=== PATIENT | male | born 1965 | race African-American/Black ===

== ENCOUNTER 2018-09-08 05:30 | Inpatient (IN) | payer MEDICARE ==
[2018-09-08 06:00] LABS: #Eosinphils 0.4 thou/uL (0.0-0.7); #Lymphocytes 2.5 thou/uL (1.20-3.40); #Monocytes 0.7 thou/uL (0.11-0.59); #Neutrophils 2.4 thou/uL (1.40-6.50); %Basophils 0.5 % (0.0-1.0); %Monocytes 11.9 % (0.0-10.0); %Neutrophils 39.6 % (42.0-75.0); Hemoglobin 16.2 g/dL (14.0-18.0); Mean Corpuscular Hemoglobin 26.8 pg (27.0-31.0); Mean Corpuscular Volume 86.4 fL (78.0-98.0); Mean Platelet Volume 7.9 fL (7.4-10.4); Platelet Count 271 thou/uL (130-400); RBC Distribution Width 12.4 % (11.5-14.5); Red Blood Cell (RBC) Count 6.04 mill/uL (4.70-6.10)
[2018-09-08 06:06] LABS: PTT 27.8 SEC (22.9-36.1); Prothrombin Time 13.7 SEC (12.0-14.7)
[2018-09-08 06:19] LABS: CKMB 3.5 ng/mL (0-6.6)
[2018-09-08 06:25] LABS: ALT (SGPT) 26 U/L (8-55); AST (SGOT) 23 U/L (5-34); Albumin 4.4 g/dL (3.5-5.0); Alkaline Phosphatase 79 U/L (40-150); Anion Gap 15 mmol/L (10-20); BUN (Urea Nitrogen) 11 mg/dL (8.9-20.6); Bilirubin, Total 0.6 mg/dL (0.2-1.2); Calc. Creatinine Clearance 0 mL/min (70-130); Calcium 9.7 mg/dL (7.8-10.44); Carbon Dioxide 29 mmol/L (22-29); Chloride 98 mmol/L (98-107); Estimated GFR-MDRD 84; Globulin 4.4 g/dL (2.4-3.5); Glucose 73 mg/dL (70-105); Potassium 3.5 mmol/L (3.5-5.1); Protein, Total 8.8 g/dL (6.0-8.3); Sodium 138 mmol/L (136-145)
--- NOTE | 2018-09-08 08:27 | CT ---
PRELIMINARY REPORT/[facility]/EMERGENTY AFTER-HOURS PROCEDURE CT Head Without Intravenous Contrast EXAM DATE/TIME: 09/08/2018 5:59 AM CLINICAL HISTORY: 52 years old, male; Signs and symptoms; Weakness, extremity; Bilateral; Patient HX: M52 with HX of he rniated discs and scoliosis presents with rue and rle weakness onset yesterday at 04:00 associated wi th r sided head pain. PT denies any HX of TIA or CVA. PT denies any cp, vision changes, SOB, slurred speech. Pt's denies any AMS for PT. TECHNIQUE: Axial computed tomography images of the head/brain without intravenous contrast. COMPARISON: No relevant prior studies available. FINDINGS: Brain: There are chronic appearing bilateral basal ganglia lacunar infarcts. No acute hemorrhage. Gra y white differentiation is intact. No evidence of acute territorial infarct. No evidence of extra-axi al fluid collection. No evidence of mass. No evidence of mass effect or midline shift. No acute abnormality evident. Ventricles: No ventriculomegaly. Bones/joints: No acute fracture. Sinuses: Left frontal sinus osteoma. No acute sinusitis. Mastoid air cells: No significant mastoid effusion. Soft tissues: Unremarkable as visualized. IMPRESSION: No evidence of acute intracranial finding. Thank you for allowing us to participate in the care of your patient. Dictated and Authenticated by: Rekha Turner MD 09/08/2018 6:42 AM Central Time ([place] & [place]) FINAL REPORT CT BRAIN WITHOUT CONTRAST: I agree with the preliminary report given by Dr. Rekha Turner of [facility]. POS: [facility]
--- NOTE | 2018-09-08 08:49 | RAD ---
PORTABLE CHEST 1 VIEW: DATE: 09/08/2018. TIME: 4:58 a.m. HISTORY: Right upper and lower extremity weakness. FINDINGS: Comparison is made with the exam of 09/30/2014. There has been interval placement of a left-sided pacer device wit unipolar lead in the right ventric le. The heart is enlarged. The lungs are expanded without lobar consolidation, pneumothoraces, tiffanie k pulmonary edema, or pleural effusions. IMPRESSION: No acute process. POS: [facility]
[2018-09-08 09:59] LABS: Medtox Reader # READER 1; Methamphetamine Detected (NotDetected); THC/Cannabinoid Screen Detected (NotDetected)
[2018-09-08 10:00] LABS: Amphetamine Detected (NotDetected); Barbiturates Screen Not Detected (NotDetected); Benzodiazepine Screen Not Detected (NotDetected); Cocaine Metabolite Screen Not Detected (NotDetected); Medtox Control Line Valid? VALID (VALID); Methadone Not Detected (NotDetected); Opiate Screen Not Detected (NotDetected); Oxycodone Screen Not Detected (NotDetected); Phencyclidine (PCP) Not Detected (NotDetected); Tricyclic Screen Not Detected (NotDetected)
--- NOTE | 2018-09-08 10:16 | CT ---
CTA CHEST WITH IV CONTRAST AND 3D POSTPROCESSING CTA ABDOMEN WITH IV CONTRAST AND 3D POSTPROCESSING: Date: 09/08/18 HISTORY: Chest pain, right-sided weakness. FINDINGS: There is good opacification of the thoracoabdominal aorta without aneurysm or dissection. There is go od flow in the celiac axis, SMA, CINDY, and renal arteries. There is focal stenosis in the proximal noe iac axis. No pleural or pericardial effusions are seen. Bilateral gynecomastia is present. The main pulmonary a rteries are well opacified without filling defects to suggest central pulmonary embolism. No lung mas ses are noted. No free air or free fluid is seen in the abdomen. A normal appearing appendix is present. Evaluation of solid organs due to imaging during the arterial phase of contrast administration. No calcified gal lstones are seen. There is scoliosis of the thoracolumbar spine. IMPRESSION: No evidence of aortic dissection. POS: [facility]
[2018-09-08 12:09] LABS: Troponin I 0.127 ng/mL (< 0.028)
[2018-09-08] MEDS ORDERED: hydrALAZINE 20 MG/ML VIAL SLOW IVP PRN (12:19)
[2018-09-08] MEDS ORDERED: Lorazepam 1 MG TAB PO PRN ×2 (12:19→18:28)
[2018-09-08] MEDS ORDERED: cloNIDine 0.1 MG TAB PO PRN (12:19)
[2018-09-08] MEDS ORDERED: Acetaminophen 325 MG TAB PO PRN (12:35)
[2018-09-08] MEDS ORDERED: Ondansetron PF 4 MG/2 ML Vial IVP PRN (12:35)
[2018-09-08] MEDS ORDERED: Ondansetron ODT 4 MG TAB PO PRN (12:35)
[2018-09-08] MEDS ORDERED: Nitroglycerin 2% Ointment 1 INCH/1 GM Packet TOP PRN (12:38)
[2018-09-08] MEDS ORDERED: ISOVUE-370 76%-LOCM 1 ML ONE (13:28)
[2018-09-08] MEDS ORDERED: Insulin Regular 300 UNITS/3 ML VIAL SC PRN (13:53)
[2018-09-08] MEDS ORDERED: Dextrose 5% in Water 1,000 ML IV PRN (13:53)
[2018-09-08] MEDS ORDERED: Dextrose 50% Abboject 50 ML SYRINGE SLOW IVP PRN (13:53)
[2018-09-08 14:56] LABS: Troponin I 0.117 ng/mL (< 0.028)
--- NOTE | 2018-09-08 17:52 | CON ---
DATE OF CONSULTATION: 09/08/2018 REASON FOR CONSULTATION: Heart failure. PRIMARY PLATFORM SUPERVISOR: Allison Ruggiero M.D. HISTORY OF PRESENT ILLNESS: Mr. Best is a very pleasant 52-year-old -[place] gentleman who comes to the hospital for weakness. He has developed the right upper and right lower extremity weak ness since yesterday at 4:00 a.m., so he decided to come in as he was concerned that he was having a stroke or something worse might be going on. He has a history of an ischemic cardiomyopathy. He was last seen here in this facility by Dr. Ruggiero in 2013. At that time, his LV function was about 30-3 5%. He had a heart catheterization at that time that showed an occluded left circumflex, severely di seased distal LAD and severely diseased distal right coronary artery pretty much the whole vessel. Kayla christianson was treated medically at that time, he was placed on medications and discharged home for followup. He never followed up. He tells me that since he left the hospital at that time in 2013, he has been in and out of other hospitals around [place]. He actually has a [employer] single chamber AICD placed u when he was in [place] and he tells me that since he left in 2014, he has had 5 stents placed. He d oes not know how good or bad his heart function is, but he thinks that he has been told that it has b een a little bit better in the past. He thinks it has been told that it was about 40% at one point. PAST MEDICAL HISTORY: 1. History of ischemic cardiomyopathy. 2. Dilated cardiomyopathy with severely reduced EF in the past. 3. Noncompliance. 4. Substance abuse. 5. Type 2 diabetes. 6. Hyperlipidemia. 7. Hypertension. 8. Obesity. 9. Coronary artery disease as above. PAST SURGICAL HISTORY: 1. AICD placement as above, single chamber. 2. Heart catheterizations in the past, apparently has had stents five times. PSYCHIATRIC HISTORY: Anxiety, depression, bipolar disorder. SOCIAL HISTORY: Uses tobacco about a pack a day. He drinks socially and he uses methamphetamines an d marijuana. OUTPATIENT MEDICATIONS: 1. Atorvastatin 40 mg a day. 2. Furosemide 20 mg twice a day. 3. Lisinopril 2.5 mg daily. 4. Glyburide 5 mg a day. 5. Spironolactone 25 mg a day. 6. Metolazone 5 mg a day. ALLERGIES: No known drug allergies. REVIEW OF SYSTEMS: A 12-point review of systems was done and is all negative unless stated in the hi story of present illness. PHYSICAL EXAMINATION: VITAL SIGNS: Temperature 97.5, pulse 86, respiration rate 16, satting 96% on room air, blood pressur e 129/81. GENERAL: Awake, alert, oriented x3, in no distress. HEENT: Normocephalic, atraumatic. NECK: Supple. LUNGS: Clear. CARDIOVASCULAR: S1, S2, no S3, S4, no murmurs. ABDOMEN: Soft, positive bowel sounds. EXTREMITIES: No edema. SKIN: Warm and dry. NEUROLOGIC: Slightly weaker right side. He is able to walk without issues. LABORATORY WORK: Reviewed. CBC is unremarkable. Coags were normal. Chemistries were unremarkable. His albumin was 4.4. His troponin is 0.15, 0.12 and 0.11. Ammonia was 40. Toxicology was positiv e for amphetamines, methamphetamines and cannabis, which he admits even before UDS was done. ASSESSMENT AND PLAN: 1. Right-sided weakness. Concern for an embolic source. CT of the brain was unremarkable for any b leed. CT dissection showed no evidence of dissections. It could be a possibility that he still has a dilated LV and developed thrombus and this was thrown to his brain. We will await MRI of the brain to see if this is actually a stroke or not and if it is, he would be a candidate for full anticoagul ation given his dilated LV. Issue would be his compliance. 2. Substance abuse: Counseled on cessation. 3. Coronary artery disease: No evidence of an acute coronary syndrome at that time. His troponins are in the intermediate range, which is expected when somebody who has got a dilated cardiomyopathy. Thank you for letting us to participate in the care of your patient. Dr. Ruggiero, his primary cardiol ogist, will follow up in the morning.
--- NOTE | 2018-09-08 18:01 | HP ---
DATE OF ADMISSION: 09/08/2018 PRIMARY CARE PHYSICIAN: Dr. Snow in [place]. CHIEF COMPLAINT: Stroke-like symptoms. HISTORY OF PRESENT ILLNESS: Patient is a 52-year-old male with coronary artery disease, chronic syst olic heart failure secondary to ischemic cardiomyopathy, diabetes mellitus type 2, and methamphetamin e abuse presented to the hospital with above symptoms. Around 4:00 a.m. yesterday, patient woke up with right-sided numbness and weakness along with some he adache. The weakness and numbness was in the right upper and lower extremity. His headache was on t he right side, more or less constant, without any aggravating or relieving factor. No double vision, blurring of vision, facial asymmetry, swallowing difficulty, slurring of speech, photophobia, phonop hobia or seizures reported. No chest pain, shortness of breath, palpitations, nausea or vomiting rep orted. Patient presented today with above symptoms that has been going on for more than 24 hours. In the em ergency room, initial vital signs showed temperature 97.3, respirations 22, pulse 102, blood pressure 135/96 with O2 saturation 97% on room air. His CT aortic dissection protocol was negative. CT scan of the brain was negative. EKG showed sinus rhythm with nonspecific ST-T wave changes. He received aspirin in the emergency room. PAST MEDICAL HISTORY: 1. Chronic systolic heart failure, ejection fraction 20% in the past secondary to ischemic cardiomyo gisela. 2. Diabetes mellitus type 2. 3. Coronary artery disease. Patient is followed by Dr. Knight in [place]. 4. Tobacco dependence. 5. Hyperlipidemia. 6. History of myocardial infarction. 7. Depression. 8. Gastroesophageal reflux disease. 9. Anxiety. PAST SURGICAL HISTORY: Cardiac catheterization with stent placement. SOCIAL HISTORY: Patient currently lives at home. He drinks socially every week. He smokes 1 pack a day. FAMILY HISTORY: Positive for heart disease and diabetes mellitus type 2. ALLERGIES: No known drug allergies. CURRENT HOME MEDICATIONS: Metolazone 5 mg daily, Lasix 1-3 tablets of 20 mg twice a day, aspirin 81 mg daily, Lipitor 40 mg daily, Aldactone 25 mg daily, glyburide 5 mg daily, [place] as needed, lisinopr il 10 mg b.i.d., omeprazole 20 mg daily, sublingual nitroglycerin as needed. REVIEW OF SYSTEMS: The following complete review of systems was negative, unless otherwise mentioned in the HPI or below: Constitutional: Weight loss or gain, ability to conduct usual activities. Sk in: Rash, itching. Eyes: Double vision, pain. ENT/Mouth: Nose bleeding, neck stiffness, pain, te nderness. Cardiovascular: Palpitations, dyspnea on exertion, orthopnea. Respiratory: Shortness of breath, wheezing, cough, hemoptysis, fever or night sweats. Gastrointestinal: Poor appetite, abdom inal pain, heartburn, nausea, vomiting, constipation, or diarrhea. Genitourinary: Urgency, frequenc y, dysuria, nocturia. Musculoskeletal: Pain, swelling. Neurologic/Psychiatric: Anxiety, depressio n. Allergy/Immunologic: Skin rash, bleeding tendency. PHYSICAL EXAMINATION: VITAL SIGNS: As discussed above. GENERAL: A 52-year-old male in no apparent distress. HEENT: Atraumatic, normocephalic. Sclerae are anicteric. Moist mucous membrane, no oral lesion. NECK: Supple, no JVD appreciated. No carotid bruit. LUNGS: Clear to auscultation bilaterally, no wheezing, rales or rhonchi. HEART: S1, S2 present. Regular rate and rhythm. No murmur, rubs, or gallops appreciated. ABDOMEN: Soft, nontender, bowel sounds present. EXTREMITIES: No edema or calf tenderness. NEUROLOGIC: Cranial nerves II-XII were normal on examination. Power was 5/5 on the left and 3-4/5 o n the right. Sensation to touch was also diminished on the right. PSYCHIATRY: Alert, awake, oriented x3. SKIN: Warm and dry. LYMPH NODES: No palpable lymph nodes in the neck. PERIPHERAL VASCULAR: Radial pulses palpable bilaterally. MUSCULOSKELETAL: No joint swelling or tenderness. LABORATORY FINDINGS: Urine drug screen positive for amphetamine, methamphetamine, and cannabinoid. Troponin maximum of 0.127. Ammonia was normal. Magnesium 1.7, potassium 3.5 with chloride of 98. C BC showed WBC 6.0 with hemoglobin 16.2. PT, INR, PTT normal range. EKG by my review as discussed above. CT scan of the brain by my review as discussed above. Chest x- ray by my review was negative for infiltrate. IMPRESSION AND PLAN: 1. Acute cerebrovascular accident causing right-sided weakness and sensory deficits. 2. Chronic systolic heart failure, ejection fraction 20% range. 3. Elevated troponins, probably secondary to demand ischemia from drug abuse. 4. Polysubstance abuse. The patient is positive for methamphetamine as well as cannabinoid. 5. Chronic kidney disease stage 2. 6. Obesity with a BMI 35.1. 7. Anxiety, depression without any suicidal ideation. 8. Coronary artery disease. 9. Ischemic cardiomyopathy. 10. Diabetes mellitus type 2. 11. Hyperlipidemia. PLAN: Patient will be monitored in the stroke unit. We will continue aspirin. We will get stroke w orkup including MRI of the brain and echocardiogram. Neurology and Cardiology will be consulted. We will discuss with the Neurology if aspirin needs to be changed to either Plavix or Aggrenox. Lifest yle modification was emphasized. Plan of care was discussed with the patient in detail, he stated understanding.
[2018-09-08] MEDS: Insulin Regular 300 UNITS/3 ML VIAL SC PRN (18:42)
[2018-09-08] MEDS ORDERED: Atorvastatin Calcium 40 MG TAB PO SCH (21:00)
[2018-09-08] MEDS: Famotidine 20 MG TAB PO SCH (21:07)
[2018-09-08] MEDS: Lisinopril 10 MG TAB PO SCH (21:07)
[2018-09-09 05:41] LABS: #Basophils 0.1 thou/uL (0.0-0.2); #Eosinphils 0.4 thou/uL (0.0-0.7); #Lymphocytes 2.3 thou/uL (1.20-3.40); #Monocytes 0.8 thou/uL (0.11-0.59); #Neutrophils 2.4 thou/uL (1.40-6.50); %Basophils 0.9 % (0.0-1.0); %Eosinophils 6.3 % (0.0-10.0); %Lymphocytes 39.6 % (21.0-51.0); %Monocytes 12.7 % (0.0-10.0); %Neutrophils 40.5 % (42.0-75.0); Hemoglobin 15.7 g/dL (14.0-18.0); Mean Corpuscular HGB CONC 32.7 g/dL (32.0-36.0); Mean Corpuscular Hemoglobin 27.9 pg (27.0-31.0); Mean Corpuscular Volume 85.3 fL (78.0-98.0); Mean Platelet Volume 7.4 fL (7.4-10.4); Platelet Count 258 thou/uL (130-400); RBC Distribution Width 12.3 % (11.5-14.5); Red Blood Cell (RBC) Count 5.64 mill/uL (4.70-6.10); White Blood Cell (WBC) Count 5.9 thou/uL (4.8-10.8)
[2018-09-09 05:50] LABS: ALT (SGPT) 21 U/L (8-55); AST (SGOT) 17 U/L (5-34); Albumin 3.8 g/dL (3.5-5.0); Alkaline Phosphatase 72 U/L (40-150); Anion Gap 13 mmol/L (10-20); BUN (Urea Nitrogen) 12 mg/dL (8.9-20.6); Bilirubin, Total 0.3 mg/dL (0.2-1.2); Calc. Creatinine Clearance 141 mL/min (70-130); Calcium 9.6 mg/dL (7.8-10.44); Carbon Dioxide 30 mmol/L (22-29); Cardiac Risk 3.5 (Less than 4.5); Chloride 96 mmol/L (98-107); Cholesterol 139 mg/dl (< 200 Desired); Estimated GFR-MDRD 83; Globulin 3.9 g/dL (2.4-3.5); Glucose 124 mg/dL (70-105); HDL Cholesterol 40 mg/dL (>60 Neg Risk); LDL Cholesterol, Calculated 82 mg/dL; Magnesium 1.5 mg/dL (1.6-2.6); Potassium 3.5 mmol/L (3.5-5.1); Protein, Total 7.7 g/dL (6.0-8.3); Sodium 135 mmol/L (136-145); Triglycerides 86 mg/dL (Less than 150)
[2018-09-09] MEDS ORDERED: Aspirin 325 mg Enteric Coated Tablet PO SCH (09:00)
[2018-09-09] MEDS ORDERED: Enoxaparin Sodium 40 MG/0.4 ML SYRINGE SC SCH (09:00)
[2018-09-09] MEDS ORDERED: Magnesium 2 GM/50 ML 2 GM in Premix Bag 1 BAG IVPB SCH (09:30)
[2018-09-09] MEDS: Atorvastatin Calcium 40 MG TAB PO SCH (10:17)
[2018-09-09] MEDS: Cyanocobalamin (Vitamin B-12) 1,000 MCG TAB PO SCH (10:18)
[2018-09-09] MEDS: Famotidine 20 MG TAB PO SCH ×2 (10:20→21:19)
[2018-09-09] MEDS: Folic Acid 1 MG TAB PO SCH (10:21)
[2018-09-09] MEDS: Lisinopril 10 MG TAB PO SCH ×2 (10:21→21:22)
[2018-09-09] MEDS: Multivit, Therapeutic 1 TAB PO SCH (10:22)
[2018-09-09] MEDS: Spironolactone 25 MG TAB PO SCH (10:22)
[2018-09-09] MEDS: Lorazepam 1 MG TAB PO PRN ×2 (10:24→10:41)
[2018-09-09 11:38] VITALS: BMI 34.9
[2018-09-09] MEDS ORDERED: ISOVUE-370 76%-LOCM 1 ML ONE (13:45)
--- NOTE | 2018-09-09 15:39 | MRI ---
BRAIN MRI WITHOUT CONTRAST: History: Stroke. CVA. Comparison: None. FINDINGS: Calvarium has a normal T1 marrow signal intensity. Midline brain parenchymal structures are unremarka ble. No hemorrhage on the axial gradient echo sequence. Central arterial flow voids are maintained. Absent restricted diffusion. Adequate aeration of the sinuses and mastoid air cells. There is no parenchymal mass, mass effect, or midline shift. Brain volume is age appropriate. There a re T2 and FLAIR white matter hyperintensities with associated restricted diffusion involving the left raymond radiata, left occipital cortex and left temporal cortex including the subcortical white matte r. Additional cortical infarcts are noted along the left frontal lobe. Embolic phenomenon is favored. IMPRESSION: 1. Small white matter as well as cortical/subcortical white matter infarcts. The overall distribution favors an embolic phenomenon. POS: [facility]
[2018-09-09] MEDS ORDERED: Carvedilol 6.25 MG TAB PO SCH ×2 (17:53→18:30)
[2018-09-09] MEDS ORDERED: Potassium Chloride 20 MEQ TAB PO SCH (18:00)
--- NOTE | 2018-09-09 18:43 | PDOC.PN ---
- Subjective Encounter Start Date: 09/09/18 Encounter Start Time: 09:00 Patient seen and examined for Acute CVA. No new focal deficits. Rt sided weakness improved. No new complaints. No overnight events - Objective Resuscitation Status: Resuscitation Status FULL:Full Resuscitation MAR Reviewed: Yes Vital Signs & Weight: Vital Signs (12 hours) Temp Pulse Pulse Pulse Resp BP BP 09/09/18 16:00 102/69 09/09/18 15:50 98.4 F 106 H 16 09/09/18 13:35 94 101 H 110/67 09/09/18 12:00 118/77 09/09/18 11:56 98.1 F 96 20 09/09/18 10:21 117/71 09/09/18 10:20 09/09/18 07:46 98.0 F 98 20 BP BP Pulse Ox 09/09/18 16:00 09/09/18 15:50 102/69 95 09/09/18 13:35 115/74 09/09/18 12:00 09/09/18 11:56 118/77 96 09/09/18 10:21 09/09/18 10:20 97 09/09/18 07:46 115/83 97 Weight Admit Weight 280 lb Weight 279 lb I&O: 09/08/18 09/09/18 09/10/18 06:59 06:59 06:59 Intake Total 1320 Output Total 2225 450 Balance -905 -450 Result Diagrams: 09/09/18 05:22 09/09/18 05:22 Additional Labs: Accuchecks 09/09/18 09/09/18 09/09/18 16:39 10:49 05:40 POC Glucose 126 H 182 H 135 H 09/08/18 19:59 POC Glucose 152 H Radiology Reviewed by me: Yes (CT brain - neg) EKG Reviewed by me: Yes (Tele SR) Phys Exam - Physical Examination Constitutional: NAD Neck: no JVD Respiratory: no wheezing, no rales, no rhonchi, clear to auscultation bilateral Cardiovascular: RRR, no rub no heaves/pulsations Gastrointestinal: soft, non-tender, no distention, positive bowel sounds Musculoskeletal: no edema, pulses present Neurological: non-focal, normal sensation, moves all 4 limbs Psychiatric: normal affect, A&O x 3 Skin: no rash Dx/Plan - Plan DVT proph w/lovenox, DVT proph w/SCDs 1. Acute cerebrovascular accident causing right-sided weakness and sensory deficits. ?embolic 2. Chronic systolic heart failure, ejection fraction 20% range. 3. Elevated troponins, probably secondary to demand ischemia from drug abuse. 4. Polysubstance abuse. The patient is positive for methamphetamine as well as cannabinoid. 5. Chronic kidney disease stage 2. 6. Obesity with a BMI 35.1. 7. Anxiety, depression without any suicidal ideation. 8. Coronary artery disease. 9. Ischemic cardiomyopathy. 10. Diabetes mellitus type 2. 11. Hyperlipidemia. 12. Chronic alcoholism. 13. Hypomagnessemia PLAN: Cont ASA/Statins Await Echo/MRI Cardio following Await Neuro input Cont ACEI/Aldactone Replace Mag Cont current meds as below Review of Systems - Review of Systems Respiratory: negative: Cough, Dry, Shortness of Breath, Hemoptysis, SOB with Excertion, Pleuritic Pain, Sputum, Wheezing Cardiovascular: negative: chest pain, palpitations, orthopnea, paroxysmal nocturnal dyspnea, edema, light headedness, other Gastrointestinal: negative: Nausea, Vomiting, Abdominal Pain, Diarrhea, Constipation, Melena, Hematochezia, Other - Medications/Allergies Allergies/Adverse Reactions: Allergies Allergy/AdvReac Type Severity Reaction Status Date / Time No Known Allergies Allergy Verified 09/08/18 15:17 Medications: Current Medications Acetaminophen (Tylenol) 650 mg PO Q4H PRN PRN Reason: Headache/Fever/Mild Pain (1-3) Hydrocodone Bitart/Acetaminophen (Epworth 10/325) 1 tab PO Q6HR PRN PRN Reason: Severe Pain (7-10) Apixaban (Eliquis) 5 mg PO BID [facility] Aspirin (Ecotrin) 81 mg PO DAILY [facility] Atorvastatin Calcium (Lipitor) 40 mg PO DAILY [facility] Last Admin: 09/09/18 10:17 Dose: 40 mg [facility] Carvedilol (Coreg) 6.25 mg PO 1830 [facility] Stop: 09/09/18 19:30 Clonidine (Catapres) 0.1 mg PO Q4H PRN PRN Reason: Systolic BP > 180 Cyanocobalamin (Vitamin B-12) 1,000 mcg PO DAILY [facility] Last Admin: 09/09/18 10:18 Dose: 1,000 mcg Dextrose/Water (Dextrose 50%) 25 gm SLOW IVP PRN PRN PRN Reason: Hypoglycemia Famotidine (Pepcid) 20 mg PO BID [facility] Last Admin: 09/09/18 10:20 Dose: 20 mg Folic Acid (Folvite) 1 mg PO DAILY [facility] Last Admin: 09/09/18 10:21 Dose: 1 mg Glucagon (Glucagon) 1 mg IM PRN PRN PRN Reason: Hypoglycemia Hydralazine HCl (Apresoline) 10 mg SLOW IVP Q4H PRN PRN Reason: SBP Greater Than 180 Dextrose/Water (D5w) 1,000 mls @ 0 mls/hr IV .Q0M PRN PRN Reason: Hypoglycemia Insulin Human Regular (Humulin R) 0 units SC .MILD SLIDING SCALE PRN PRN Reason: Mild Correctional Scale Last Admin: 09/08/18 18:42 Dose: 2 unit Insulin Human Regular (Humulin R) 0 units SC .BEDTIME SLIDING SC PRN PRN Reason: Bedtime Correctional Scale Lisinopril (Zestril) 10 mg PO BID [facility] Last Admin: 09/09/18 10:21 Dose: 10 mg Lorazepam (Ativan) 1 mg PO Q4H PRN PRN Reason: ASE >=9 Last Admin: 09/09/18 10:41 Dose: 1 mg Multivitamins (Theragran) 1 tab PO DAILY [facility] Last Admin: 09/09/18 10:22 Dose: 1 tab Nitroglycerin (Nitro-Bid 2% Ointment) 0.5 inch TOP Q8H PRN PRN Reason: SBP Greater Than 180 Ondansetron HCl (Zofran Odt) 4 mg PO Q6H PRN PRN Reason: Nausea/Vomiting Ondansetron HCl (Zofran) 4 mg IVP Q6H PRN PRN Reason: Nausea/Vomiting Potassium Chloride (K-Dur) 40 meq PO NOW [facility] Stop: 09/09/18 20:00 Sodium Chloride (Flush - Normal Saline) 10 ml IVF PRN PRN PRN Reason: Saline Flush Spironolactone (Aldactone) 25 mg PO DAILY [facility] Last Admin: 09/09/18 10:22 Dose: 25 mg Thiamine HCl (Thiamine) 100 mg PO DAILY [facility] Last Admin: 09/09/18 10:18 Dose: 100 mg
--- NOTE | 2018-09-09 18:53 | PDOC.EVN ---
Event Note - Event Note Event Note: Will start Eliquis per Cardio and Neuro recommendation. Reduce ASA to 81 mg. Risk not limited to life threatening complications including discussed with patient - he stated understanding.
--- NOTE | 2018-09-09 20:58 | PRG ---
DATE OF SERVICE: 09/09/2018 SUBJECTIVE: Mr. Best is doing better. He has no chest pain or pressure. He is moving his arms an d legs well. PHYSICAL EXAMINATION: VITAL SIGNS: Blood pressure is 102/69, pulse was 100, sinus. LUNGS: Clear. CARDIAC: Normal S1, normal S2. ABDOMEN: Soft, nontender. EXTREMITIES: No edema. IMAGING DATA: Echocardiogram revealed ejection fraction is 15-20%. Technically difficult study. Th e images are suboptimal from the apex. The MRI is compatible with embolic strokes in multiple locations. ASSESSMENT: 1. Severely dilated left ventricle with ejection fraction 15-20%. 2. Coronary artery disease. 3. Single chamber defibrillator. 4. Very high probability this is embolic strokes. 5. Unfortunately abusing amphetamines apparently methamphetamine. 5. Continues to smoke. PLAN: Discussed with this gentleman. Unfortunately, if he continues to medication continues to use methamphetamines risk of will be very high with this degree of heart disease. Really no great option with stroke prevention. He certainly is at higher risk of bleeding with using methamphetamines in terms of hypertension, but also high risk of recurrent embolic strokes without i t. He critically not use methamphetamines. I think all things considered, it is reasonable to reduce the aspirin to 81 mg a day and use Eliquis. Also, we will restart the carvedilol, it is not clear to me who has been seeing from a cardiac standpoint. I will be glad to see him in the office i f he prefers. He is on lisinopril. We will restart Coreg. He says he stopped at some point in the past. He knows he needs to not smoke. His defibrillator was placed by Dr. Ramos at [facility]. The patient wishes to be seen by us and will be glad to do so. It is unclear at this point which d irection he will go; however, he continues to use amphetamine prognosis is grim.
[2018-09-09] MEDS: HYDROcodone/Acetaminophen 10/325 mg Tablet PO PRN (21:19)
[2018-09-09] MEDS: Apixaban 5 MG TAB PO SCH (21:19)
--- NOTE | 2018-09-09 22:22 | CT ---
CTA CAROTID AND INTRACRANIAL CTA 09/09/18 HISTORY: Patient with right sided stroke, weakness involving the right upper and lower extremity. Contrast enhanced CTA of the carotid artery and intracranial CTA performed. The right and left common carotid arteries are unremarkable without evidence of significant stenosis. The right and left subclavian arteries are patent. The right brachiocephalic artery is patent. The right and left common carotid arteries demonstrate no significant stenosis. The right and left in ternal carotid arteries are patent. The SHERI and MCA vessels bilaterally are patent and have symmetric flow. The right and left vertebral arteries are patent. Good flow is seen in the right and left posterior cerebral arteries from the anterior circulation. The right and left posterior cerebral arteries are patent. IMPRESSION: Unremarkable carotid and intracranial CTA. Areas of acute stroke seen on MRI at this time are not vis ible by CT. POS: [facility]
--- NOTE | 2018-09-10 03:37 | CON ---
DATE OF CONSULTATION: 09/09/2018 CHIEF COMPLAINT: Right-sided weakness. HISTORY OF PRESENT ILLNESS: The patient is a 52-year-old -[place] man, who has longstanding cardiac issues, diabetes and methamphetamine abuse. He reports to me that he felt weak on the right side when he woke up on 09/07/2018 and he came to the emergency room on 09/08/2018 for admission and he felt that his right side was quite weak and he also felt numbness in both hands and feet. He had no difficulty with speaking. He did have some headache, no blurred vision, no seizures, no speech disturbance or dysarthria. No dizziness. 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 He would like to go home if possible. The patient has been on aspirin 81 mg, but he feels he has missed some doses on and off. PAST MEDICAL HISTORY: The patient has chronic heart failure with ejection fraction of 20% in the past due to ischemic cardiomyopathy, coronary artery disease with about 5 stents were placed between 2015 to 2016, hyperlipidemia, history of myocardial infarction, depression, gastroesophageal reflux disease on and off, and anxiety. PAST SURGICAL HISTORY: He had 5 cardiac catheterizations with stent placements between 2015 to 2016, he also had an AICD device placement in 2014. SOCIAL HISTORY: He lives at home. He drinks once a week, occasionally. He smokes 1 pack per day. He has used drugs in the past he states including methamphetamine and marijuana. He is disabled due to scoliosis, chronic pain, disk disease and heart problems. FAMILY HISTORY: The patient has 3 brothers and 3 sisters. One sister has lupus , she is 46. One sister of cancer at age 36, she had cervical cancer. Brother of an myocardial infarction. His father at 62 following cancer in 2007. Mother at 58 in 2006 from an [place]. Since his parents and sisters , he has had depression. ALLERGIES: No known drug allergies. MEDICATIONS AT HOME: He takes metolazone; Lasix; aspirin 81 mg per day, but misses some doses; Lipitor 40 mg per day; Aldactone 25 mg per day; glyburide 5 mg per day; Jeff; lisinopril; and omeprazole. REVIEW OF SYSTEMS: Pulmonary: Negative for any shortness of breath or cough. Cardiac: Negative for any chest pain. Gastrointestinal: No history of any diarrhea or vomiting or constipation. Genitourinary: Negative for any urinary problems. Dermatologic: Negative for any skin lesions. Neurologic: Positive for weakness on the right side of the body and some numbness. Ophthalmologic: Negative for any vision problems. Hematologic: Negative for any anemia or platelet dysfunction. Endocrine: Positive for diabetes. LABORATORY DATA: White count 5.9, RBC 5.64, hemoglobin 15.7, hematocrit 48.1 and platelets 258. Chemistry: Sodium 135, potassium 3.5, chloride 96, bicarbonate 30, BUN 12, creatinine 1.13, glucose 124, LDL 82, HDL 40. Heart disease risk ratio is 3.5. Urine tox screen is positive for amphetamines, methamphetamines, and cannabinoids. MRI of the brain was reported and he has T2 and flair white matter hyperintensities with associated restricted diffusion involving the left raymond radiata, left occipital cortex and left temporal cortex including the subcortical white matter, additional cortical infarcts are noted along the left frontal lobe and embolic phenomena . His echocardiogram was completed today and it shows left ventricular size is moderately increased, ejection fraction is 15% to 20%, left atrium is also dilated, mild mitral regurgitation is present, structurally normal aortic valve and mild tricuspid regurgitation. PHYSICAL EXAMINATION: VITAL SIGNS: Blood pressure 102/69, pulse is 106, temperature 98.4, respiratory rate 16, O2 sats 95. GENERAL APPEARANCE: Well-built, slightly obese gentleman. He has scoliosis to the right and he had slightly lower right shoulder while walking. CHEST: Clear vesicular breathing. CARDIOVASCULAR: S1, S2 heard. No murmurs. Carotids are clear. ABDOMEN: Soft, nontender, no organomegaly noted. NEUROLOGICAL: Higher intellectual functions. Normal orientation to time, place and person. Appropriate conversation. Cranial nerves II-XII normal. Pupillary reaction equal and reactive to light bilaterally. Normal extraocular movements. Normal sensation of face bilaterally and no facial asymmetry noted. Normal hearing to finger rub bilaterally. Tongue midline, no atrophy noted. Normal elevation of palate. Motor: Bulk normal, tone normal, strength 5/5 in upper and lower extremities in iliopsoas, hamstrings, quadriceps, ankle dorsiflexion, plantar flexion, deltoid, biceps, triceps, wrist extension/flexion , and finger extension/flexion. Deep tendon reflexes were 1+ throughout. Sensory: Normal touch and proprioception. Cerebellar: Normal [id number], heel to taveras. IMPRESSION: The patient is a 52-year-old man with high risk factors for stroke including diabetes and cardiac dysfunction with EF of 20%. He has had right- sided numbness and weakness for a total of 24 hours after which he seems to have recovered fully. At this time, he is ambulatory and has even gone out of the floor for smoking and came back. At this time, he is clinically stable; however, on the MRI scan as noted, he has different areas of infarct, mostly in the left raymond radiata, left occipital cortex, temporal cortex and cortical infarcts in the left frontal lobe, likely embolic phenomena which suggests that he might have had embolization from a cardiac source, but we also need to check his carotids and cerebral vasculature since he is so young. Diagnosis is most consistent with acute left ICA distribution likely cardio- embolic stroke. RECOMMENDATIONS: 1. Monitor for any additional neurological changes. 2. Please consult Cardiology to see if he can be a candidate for anticoagulation. 3. I will also request a CT angiogram of the head and neck. I have not seen any CTA of the head and neck in the system for him. I would think this would serve as a good baseline for us and also we will be able to evaluate potential carotid artery disease as well. 4. We will follow up patient results with you. Please call if you have any further questions. This consultation was done through telemedicine technology. JAIR
[2018-09-10 05:23] LABS: #Basophils 0.1 thou/uL (0.0-0.2); #Eosinphils 0.4 thou/uL (0.0-0.7); #Lymphocytes 2.6 thou/uL (1.20-3.40); #Monocytes 0.8 thou/uL (0.11-0.59); #Neutrophils 2.8 thou/uL (1.40-6.50); %Basophils 1.1 % (0.0-1.0); %Lymphocytes 38.6 % (21.0-51.0); %Monocytes 12.2 % (0.0-10.0); %Neutrophils 42.2 % (42.0-75.0); Hemoglobin 15.7 g/dL (14.0-18.0); Mean Corpuscular HGB CONC 32.8 g/dL (32.0-36.0); Mean Corpuscular Volume 85.4 fL (78.0-98.0); Mean Platelet Volume 7.6 fL (7.4-10.4); Platelet Count 269 thou/uL (130-400); RBC Distribution Width 12.3 % (11.5-14.5); Red Blood Cell (RBC) Count 5.59 mill/uL (4.70-6.10); White Blood Cell (WBC) Count 6.7 thou/uL (4.8-10.8)
[2018-09-10 05:28] LABS: Anion Gap 13 mmol/L (10-20); BUN (Urea Nitrogen) 18 mg/dL (8.9-20.6); Calc. Creatinine Clearance 117 mL/min (70-130); Calcium 9.6 mg/dL (7.8-10.44); Carbon Dioxide 32 mmol/L (22-29); Chloride 96 mmol/L (98-107); Estimated GFR-MDRD 68; Glucose 138 mg/dL (70-105); Potassium 4.2 mmol/L (3.5-5.1); Sodium 137 mmol/L (136-145)
[2018-09-10] MEDS ORDERED: Carvedilol 6.25 MG TAB PO SCH (08:00)
[2018-09-10] MEDS ORDERED: Aspirin 81 mg Enteric Coated Tablet PO SCH (09:00)
[2018-09-10] MEDS: Apixaban 5 MG TAB PO SCH (09:10)
[2018-09-10] MEDS: Spironolactone 25 MG TAB PO SCH (09:10)
[2018-09-10] MEDS: Multivit, Therapeutic 1 TAB PO SCH (09:10)
[2018-09-10] MEDS: Folic Acid 1 MG TAB PO SCH (09:10)
[2018-09-10] MEDS: Cyanocobalamin (Vitamin B-12) 1,000 MCG TAB PO SCH (09:10)
[2018-09-10] MEDS: Atorvastatin Calcium 40 MG TAB PO SCH (09:10)
[2018-09-10] MEDS: Famotidine 20 MG TAB PO SCH (09:11)
[2018-09-10] MEDS: HYDROcodone/Acetaminophen 10/325 mg Tablet PO PRN (09:19)
[2018-09-10] MEDS: Lisinopril 10 MG TAB PO SCH (10:16)
--- NOTE | 2018-09-10 10:43 | DIS ---
DATE OF ADMISSION: 09/08/2018 DATE OF DISCHARGE: 09/10/2018 PRIMARY CARE PHYSICIAN: [facility] call admission. DISCHARGE DISPOSITION: Home. PRIMARY DISCHARGE DIAGNOSES: Acute cerebrovascular accident with right-sided weakness and sensory de ficit, resolved, likely due to an embolic etiology; elevated troponin due to demand ischemia. SECONDARY DISCHARGE DIAGNOSES: Polysubstance abuse, obesity with BMI 34, ischemic cardiomyopathy, hy pertension, dyslipidemia, diabetes type 2, COPD, CKD stage 3, chronic systolic congestive heart failu re stage C, coronary artery disease, anxiety and depression, alcohol abuse, obesity with BMI 34. PRIMARY PROCEDURE/OPERATION: None. RADIOLOGICAL INVESTIGATION: CT brain on admission showed no acute intracranial process. Chest x-ray was normal. CT dissection showed no acute dissection. MRI brain showed small white matter as well as cortical and subcortical white matter infarct. Echocardiography showed EF 15%-20%. CT [place] negative. SIGNIFICANT LABORATORY DATA: WBC 6.7, hemoglobin 15.7, platelet 269. INR 1.0. Sodium 137, potassiu m 4.2, BUN 18, creatinine 1.35, calcium 9.6, magnesium 2.0. Urine drug screen positive for amphetami ne, methamphetamine, and cannabinoids. DISCHARGE MEDICATIONS: Mckenzie 10 one tablet q.6 hourly p.r.n., aspirin 81 mg p.o. daily, Lipitor 40 m g p.o. daily, Lasix 20 mg p.o. b.i.d., glyburide 5 mg daily, Lisinopril 10 mg p.o. b.i.d., Prilosec 2 0 mg p.o. daily, Aldactone 25 mg p.o. daily, nitroglycerin 0.4 mg sublingual p.r.n. for chest pain, E liquis 5 mg p.o. b.i.d., Coreg 6.25 mg p.o. b.i.d., vitamin B12 of 1000 mcg p.o. daily, Pepcid 20 mg p.o. b.i.d., folic acid 1 mg daily, thiamine 100 mg p.o. daily. CONTRAINDICATIONS: None. CODE STATUS: FULL CODE. INPATIENT CONSULTANTS: Dr. Ruggiero was following while in hospital. Dr. Joe Silva, neurologist was consulted while in hospital. TEST RESULTS PENDING ON DISCHARGE: None. ALLERGIES: No known drug allergy. DISCHARGE PLAN: Post hospital, the patient will follow up with primary care physician, Dr. Lemuel Ramos in [place], as well as patient will follow up with his own software sales consultant. HOSPITAL COURSE: A 52-year-old male with above-mentioned medical problem who was admitted by Dr. John Coffey on 09/08/2018. Please see his H&P for further details. The patient was admitted for stroke -like symptoms. He was having right-sided weakness and the sensory deficit. His symptoms rapidly im proved. In the emergency room, patient had a CT brain which was negative. Chest x-ray was normal. CT dissection was negative. MRI brain was obtained which showed white matter infarct which was suspe cted for embolic etiology. Echocardiography showed low EF. This patient does have history of chroni c ischemic cardiomyopathy with stage C and chronic systolic heart failure. The patient is on optimum medical treatment. During this admission, Cardiology and Neurology recommended anticoagulation for suspected embolic stroke and that is why Eliquis was started. The risk and benefit of Eliquis was di scussed with the patient. During this admission, we have provided extensive counseling to avoid all illicit drug abuse. The patient is seen and examined at bedside today. He is now neurologically intact. His weakness on the right side and sensory disturbance, resolved. Patient's speech is normal. He wants to go home today. PHYSICAL EXAMINATION: VITAL SIGNS: Today, temperature 97.9, pulse 90, respiratory rate 20, saturation 99% on room air, blo od pressure 93/65, weight 279 pounds. GENERAL: The patient is currently alert, awake, no obvious acute distress. HEAD: Normocephalic, atraumatic. EYES: Pupils round, reactive to light. Extraocular muscle intact. ENT: Oropharynx within normal limits. Moist mucous membrane, no oral lesion, no pharyngeal erythema , no exudate. NECK: Supple, no JVD, no thyromegaly, no carotid bruits. LUNGS: Clear to auscultation without any rhonchi or rales. CARDIAC: S1, S2 regular without any murmur. ABDOMEN: Soft and benign. EXTREMITIES: No edema. NEUROLOGIC: Nonfocal examination. He moves all 4 limbs. His speech is clear. All new medication prescription sent to pharmacy. Review of systems reviewed with him and negative.
[2018-09-10 11:41] VITALS: BP 134/91; TEMP 98
[2018-09-10] MEDS: Insulin Regular 300 UNITS/3 ML VIAL SC PRN (12:21)
--- NOTE | 2018-09-10 16:55 | PRG ---
DATE OF SERVICE: 09/10/2018 CHIEF COMPLAINT: The patient with right-sided weakness and acute stroke. INTERVAL HISTORY: The patient feels much better. He has been started on anticoagulation by the card iologist. No new symptoms. He has been walking quite a bit as well. Updated reports, CT angiograph y shows unremarkable carotid and intracranial CTA. PHYSICAL EXAMINATION: VITAL SIGNS: Blood pressure at the time of our evaluation was 93/65, pulse was 60, temperature 98.0. NEUROLOGIC: Alert, awake, oriented to time, place and person. Cranial nerve examination, normal ext raocular movements. No facial asymmetry. Motor, bulk normal, tone normal. Strength 5/5 in upper an d lower extremities; however, there is a slight decrease in the strength on the right compared to the left. IMPRESSION: The patient with left middle cerebral artery distribution embolic infarcts, however, wit h very minor deficits and his ejection fraction is very low on echocardiogram. His [place] is normal and carotid angiography is normal. Therefore, this event is clearly cardioembolic in natur e. The patient is stable and ambulatory. RECOMMENDATIONS: Agree with plans for anticoagulation and also plans for discharge. Please feel tj e to call if there are any further questions.
--- NOTE | 2018-09-10 21:15 | EKG ---
Test Reason : RHYTHM CHANGE Blood Pressure : / mmHG Vent. Rate : 087 BPM Atrial Rate : 087 BPM P-R Int : 202 ms QRS Dur : 102 ms QT Int : 388 ms P-R-T Axes : 053 002 094 degrees QTc Int : 466 ms Normal sinus rhythm Possible Left atrial enlargement Inferior infarct , age undetermined Cannot rule out Anterior infarct , age undetermined Abnormal ECG Confirmed by DON HERNANDEZ D.O. ([id number]), assistant film editor SEDA LAINEZ ([id number]) on 09/10/2018 9:14:39 PM Referred By: Confirmed By:DON HERNANDEZ D.O.
--- NOTE | 2018-09-19 16:11 | EKG ---
Test Reason : Blood Pressure : / mmHG Vent. Rate : 099 BPM Atrial Rate : 099 BPM P-R Int : 188 ms QRS Dur : 098 ms QT Int : 390 ms P-R-T Axes : 056 011 086 degrees QTc Int : 500 ms Normal sinus rhythm Possible Left atrial enlargement Inferior infarct , age undetermined Cannot rule out Anterior infarct , age undetermined Prolonged QT Abnormal ECG Confirmed by FIDELIA ESTEBAN ([id number]), editorial director SEDA LANIEZ ([id number]) on 09/19/2018 4:11:01 PM Referred By: Confirmed By:FIDELIA ESTEBAN
== END 2018-09-10 11:36 | disposition home or self-care (01) | DRG 65 ==
LOC: ERS 05:30 → 2SE 12:08
PROVIDERS: ADMIT Internal Medicine; ATTEND Internal Medicine
DX: I63.412 Cerebral infarction due to embolism of left middle cerebral artery (principal); I50.22 Chronic systolic (congestive) heart failure; G81.91 Hemiplegia, unspecified affecting right dominant side; I24.8 Other forms of acute ischemic heart disease; I25.10 Atherosclerotic heart disease of native coronary artery without angina pectoris; I25.5 Ischemic cardiomyopathy; F15.10 Other stimulant abuse, uncomplicated; E78.5 Hyperlipidemia, unspecified; I25.2 Old myocardial infarction; F32.9 Major depressive disorder, single episode, unspecified; K21.9 Gastro-esophageal reflux disease without esophagitis; F41.9 Anxiety disorder, unspecified; F17.210 Nicotine dependence, cigarettes, uncomplicated; Z79.82 Long term (current) use of aspirin; E11.22 Type 2 diabetes mellitus with diabetic chronic kidney disease; E66.9 Obesity, unspecified; Z68.35 Body mass index [BMI] 35.0-35.9, adult; J44.9 Chronic obstructive pulmonary disease, unspecified; N18.3 Chronic kidney disease, stage 3 (moderate); F10.10 Alcohol abuse, uncomplicated; Z95.810 Presence of automatic (implantable) cardiac defibrillator; Z91.19 Patient's noncompliance with other medical treatment and regimen; F31.9 Bipolar disorder, unspecified
CPT/HCPCS: 36415; 36416; 70450; 70496; 70498; 70551; 71045; 71275; 80048; 80053; 80061; 80306; 82140; 82553; 83735; 84484; 85025; 85610; 85730; 90471; 90686; 90732; 93005; 93306; 99406; G0008; G0009; G8978-GP-CJ; G8979-GP-CJ; G8980-GP-CJ; G8987-GO-CJ; G8988-GO-CI; G8996-GN-CH; G8997-GN-CH; G8998-GN-CH; J1650; J1815

== ENCOUNTER 2018-11-13 20:54 | Inpatient (IN) | payer MEDICARE ==
[2018-11-13] MEDS ORDERED: Midazolam HCl 5 mg/ml Vial ONE (20:58)
[2018-11-13] MEDS ORDERED: Midazolam HCl 2 mg/2 ml Vial ONE (21:13)
[2018-11-13] MEDS ORDERED: Propofol 1,000 MG/100 ML VIAL IV ONE (21:28)
[2018-11-13 21:41] LABS: Actual Bicarbonate (HCO3a) 27.6 mEq/L (22-28); Analyzer IN Cardio ER; Base Excess (BEa) -1.2 mEq/L (-2.0 to +3.0); Calcium, Ionized 1.13 mmol/L (1.12-1.30); Carboxyhemoglobin (COHb) 1.6 gm% (0.0-3.0); Hemoglobin (Hb) 15.1 g/dL (14.0-18.0); O2 Tension (PaO2) 97.7 mmHg (80.0-100.0); Potassium - ABG Lab 4.85 mmol/L (3.70-5.30)
[2018-11-13 21:44] LABS: CO2 Tension 63.8 mmHg (35.0-45.0); Puncture Site LRA; pH, Arterial 7.25 (7.35-7.45)
--- NOTE | 2018-11-13 21:56 | RAD ---
FRONTAL VIEW CHEST: CLINICAL INDICATIONS: Stroke. Intubated patient. COMPARISON: Exam from earlier the same day at 1941 hours. FINDINGS: The cardiac silhouette is markedly enlarged. Endotracheal tube terminates at the thoracic inlet leve l. There is an enteric catheter, which traverses inferiorly, the distal aspect of which is difficult to discern on the basis of this exam. Vascular congestion is present. There is a left-sided cardia c pacing device. Retrocardiac left lower lobe is not well assessed due to obscuration by the enlarge d cardiac silhouette. IMPRESSION: 1. Congestive heart failure. 2. Left basilar density may also be present, although the left lung base is obscured by the enlarged cardiac silhouette. 2. Supportive tubes as above. POS: KENDELL
[2018-11-13] MEDS ORDERED: Insulin Regular 100 units/100 ml in NS IVPB SCH (22:00)
[2018-11-13] MEDS ORDERED: Ventilator Sedation Protocol 1 EACH FS SCH (23:18)
[2018-11-13] MEDS ORDERED: Ondansetron PF 4 MG/2 ML Vial IVP PRN (23:18)
[2018-11-13] MEDS ORDERED: HUMULIN R 100 UNITS in Sodium Chloride 0.9% 100 ML IVPB SCH (23:18)
[2018-11-13] MEDS ORDERED: Dextrose 5 %-0.45 % NaCl 1,000 ML IV PRN (23:18)
[2018-11-13] MEDS ORDERED: CCU Electrolyte Replacement 1 EACH IVPB SCH (23:18)
[2018-11-13] MEDS ORDERED: Sodium Chloride 0.9% 1,000 ML IV PRN (23:18)
[2018-11-13] MEDS ORDERED: Lorazepam 2 MG/ML VIAL ONE (23:26)
[2018-11-13] MEDS ORDERED: Propofol BOLUS 1,000 MG/100 ML VIAL IV PRN (23:28)
[2018-11-13] MEDS ORDERED: Morphine 2 MG/ML SYRINGE SLOW IVP PRN (23:28)
[2018-11-13] MEDS ORDERED: Fentanyl BOLUS 250 ML IVPB PRN (23:28)
[2018-11-13] MEDS ORDERED: levETIRAcetam In NaCl (Iso-Os) 1,000 MG in Premix Bag 1 BAG IVPB SCH (23:30)
[2018-11-13] MEDS ORDERED: Potassium Chloride 40 MEQ in Sodium Chloride 0.9% 250 ML 250 ML IVPB PRN (23:39)
[2018-11-13] MEDS ORDERED: Potassium Chloride 40 MEQ in Premix Bag 1 BAG IVPB PRN (23:39)
[2018-11-13] MEDS ORDERED: Potassium Phosphate 15 MMOL in Sodium Chloride 0.9% 250 ML 250 ML IV PRN (23:39)
[2018-11-13] MEDS ORDERED: CCU ELECTROLYTE REPLACEMENT PROTOCOL FS PRN (23:39)
[2018-11-13] MEDS ORDERED: Magnesium 2 GM/NS 0.9% 100 ML 2 GM in Premix Bag 1 BAG IVPB PRN (23:39)
[2018-11-13] MEDS ORDERED: Potassium Phosphate 9 MMOL in Sodium Chloride 0.9% 100 ML IVPB PRN (23:39)
[2018-11-13] MEDS ORDERED: Potassium Phosphate 12 MMOL in Sodium Chloride 0.9% 250 ML 250 ML IV PRN (23:39)
[2018-11-13] MEDS ORDERED: Potassium Chloride 20 MEQ TAB PO PRN (23:39)
[2018-11-13] MEDS ORDERED: Magnesium Oxide 400 MG TAB PO PRN ×2 (23:39)
[2018-11-14] MEDS: NS 0.9% w/ 20 MEQ KCL 1,000 ML IV PRN ×2 (00:23→04:35)
[2018-11-14 00:30] LABS: Anion Gap 17 mmol/L (10-20); BUN (Urea Nitrogen) 17 mg/dL (8.9-20.6); Calc. Creatinine Clearance 0 mL/min (70-130); Calcium 8.3 mg/dL (7.8-10.44); Carbon Dioxide 23 mmol/L (22-29); Chloride 100 mmol/L (98-107); Estimated GFR-MDRD 47; Magnesium 2.1 mg/dL (1.6-2.6); Phosphorus 3.8 mg/dL (2.3-4.7); Potassium 4.6 mmol/L (3.5-5.1); Sodium 135 mmol/L (136-145)
[2018-11-14 00:34] LABS: Glucose 582 mg/dL (70-105)
--- NOTE | 2018-11-14 01:03 | HP ---
PRIMARY CARE PROVIDER: Evaristo lerma. CHIEF COMPLAINT: Altered mental status. HISTORY OF PRESENT ILLNESS: This is a 52-year-old male, who initially presented to [facility] after his girlfriend noticed a change in mental status, frothing at the mouth and difficulty breathing. The patient was also noted with slurred speech apparently after eating at approximately 4:30 pm. The girlfriend reports the patient has been fairly noncompliant with his chronic medication regimen and apparently only recently took glipizide in the last 24 to 48 hours. The girlfriend is unaware of the patient's diabetes and states he has not established with a primary care provider after recent admission to [facility] 09/08/2018 through 09/10/2018, status post acute CVA with right-sided weakness, likely due to embolic phenomenon. The patient was also noted positive for methamphetamines and cannabinoids on urine drug screen during his admission in September of 2018. The patient is currently unable to provide any history due to respiratory failure, hyperglycemia, and seizures. The patient was evaluated in the emergency room with initial glucose over 800. The patient was also noted with lethargy and unprotected airway with active seizing, receiving multiple rounds of Ativan, intravenous normal saline, and 10 units subcutaneously of insulin. The patient's girlfriend denies any prior history of seizure activity, prior respiratory failure, or need for mechanical ventilation. The patient was given multiple doses of Versed and placed on a fentanyl infusion after intubation and continued on IV fluids, receiving 2.5 L normal saline total. PAST MEDICAL HISTORY: 1. Acute CVA with right-sided weakness, likely embolic phenomenon, 09/2018. 2. Elevated troponin I with demand ischemia. 3. Polysubstance abuse with methamphetamines and cannabinoids, 09/2018. 4. Morbid obesity. 5. Ischemic cardiomyopathy. 6. Hypertension. 7. Dyslipidemia. 8. Diabetes mellitus type 2. 9. Chronic obstructive pulmonary disease. 10. Chronic kidney disease stage 3. 11. Chronic systolic congestive heart failure stage C. 12. Coronary artery disease. 13. Anxiety disorder. 14. History of alcohol abuse. PAST SURGICAL HISTORY: Status post cardiac catheterization with stent placement. CURRENT MEDICATIONS: Based on admission in September 2018: 1. Enteric-coated aspirin 81 mg p.o. daily. 2. Lipitor 40 mg p.o. daily. 3. Lasix 20 mg 1 to 3 tablets p.o. b.i.d. 4. Glyburide 5 mg 1 tab p.o. daily. 5. Spironolactone 25 mg p.o. daily. 6. Lisinopril 10 mg p.o. b.i.d. 7. Eliquis 5 mg p.o. b.i.d. 8. Coreg 6.25 mg p.o. b.i.d. 9. Vitamin B12 1000 mcg p.o. daily. 10. Folic acid 1 mg p.o. daily. 11. Nitroglycerin 0.4 mg sublingually q.5 minutes p.r.n. chest pain. 12. Thiamine 100 mg p.o. daily. ALLERGIES: NO KNOWN DRUG ALLERGIES. FAMILY HISTORY: Positive for coronary artery disease and diabetes mellitus type 2. SOCIAL HISTORY: The patient is accompanied in the emergency room by his live-in girlfriend. Drinks socially. Smokes up to a pack of cigarettes daily. Positive for methamphetamines and cannabinoids, 09/2018. REVIEW OF SYSTEMS: Unobtainable as the patient is on current mechanical ventilation status post active seizures. PHYSICAL EXAMINATION: VITAL SIGNS: Currently, blood pressure 103/60, pulse 88, respiratory rate 18, temperature 97.6 degrees axillary. GENERAL APPEARANCE: This is a 52-year-old male, sedated on mechanical ventilation, unresponsive. HEENT: Pupils are equal, round, and reactive to light and accommodation. Extraocular muscles are intact. No scleral icterus. No conjunctival injection. Nares patent. OP with ET tube and orogastric tube in place. NECK: Supple. No cervical adenopathy. No thyromegaly. No carotid bruits. No JVD appreciated. Cervical spine with full passive range of motion. No meningeal signs appreciated. CHEST: Diminished breath sounds in the bases bilaterally. CARDIOVASCULAR: S1 and S2 without noted murmur, rub, or gallop. Left upper chest wall with AICD device in place. ABDOMEN: Obese, nondistended. Bowel sounds are positive in all four quadrants. No palpable mass. No rebound noted. EXTREMITIES: Warm and dry with fair turgor. Mild edema to the proximal shins bilaterally. Pulses palpable distally at the dorsalis pedis, posterior tibial, and popliteal arteries bilaterally. Capillary refill less than 2 seconds. : Kaplan catheter in place with benjie clear urine. NEUROLOGIC: Sedated on current mechanical ventilation. PERTINENT LABORATORY AND X-RAY FINDINGS: Sodium 125, potassium 4.8, chloride 89, CO2 of 24, BUN 13, creatinine 1.87, estimated GFR of 47, glucose 845. Hemoglobin A1c 8.4, 03/24/2014. Calcium 9.2, magnesium 2.0. LFTs within normal limits. Troponin I 0.172, albumin 3.8. CBC showed a white blood cell count of 6.0, hemoglobin 14.2, hematocrit 44, and platelet count 234, with a normal differential. PT 14.2, INR 1.1, PTT 28.8. ABG is unavailable. CT of the brain without contrast dated 11/13/2018 showed no acute intracranial process. Portable chest x-ray dated 11/13/2018 by my interpretation shows endotracheal tube above the kamila. Pulmonary vascular prominence bilaterally. Cardiomegaly noted. AICD/pacemaker device in the left upper chest wall. Poor quality film. EKG dated 11/13/2018 by my interpretation shows sinus tachycardia with heart rates in the 100s. Normal R-wave progression noted in the precordial leads. Left axis deviation. No acute ST-T wave changes appreciated. ASSESSMENT AND PLAN: 1. Acute hypoxic respiratory failure. Suspect multifactorial. We will continue mechanical ventilation with SIMV with 60% FiO2, pressure support of 10, PEEP of 5, and tidal volume of 500. We will consult Pulmonary Critical Care Service for further evaluation and ongoing ventilatory management. Repeat portable chest x-ray in the a.m. Repeat ABG in the a.m. 2. Hyperglycemia. No definitive diabetic ketoacidosis. However, patient will be treated as such with insulin infusion with regular insulin at 4 units/hour. We will continue partial DKA protocol for hyperglycemic management. Check hemoglobin A1c in the a.m. as well as beta hydroxybutyrate level. Continue IV fluids and serial Accu-Cheks. Last A1c evaluation 8.4, 03/24/2014. 3. Acute seizures. Suspect multifactorial in conjunction with hyperglycemia and respiratory failure. We will initiate Keppra 1000 mg IV q.12 hours, first dose now. We will consult Neurology Service for further evaluation. The patient received multiple doses of Versed and Ativan. We will continue sedation with propofol due to respiratory failure on mechanical ventilation. 4. Acute kidney injury on chronic kidney disease stage 3. We will continue IV fluids as outlined previously. Avoid nephrotoxic agents and limit contrast exposure. Serial creatinine monitoring. Continue Kaplan catheter. 5. Chronic systolic congestive heart failure with ejection fraction of 15% to 20%. We will continue fluid management as outlined previously due to severe hyperglycemia. We will monitor for volume overload. No current evidence to suggest acute decompensation directly related to heart failure. 6. Polysubstance abuse. We will check urine drug screen currently. Last urine drug screen was positive for methamphetamines and cannabinoids. 7. Prophylaxis. SCDs while in bed. Pepcid 20 mg IV q.12 hours. General seizure precautions. CCU electrolyte and sedation protocol. Wrist restraints per protocol. 8. Code status, full. Surrogate medical decision maker is Marcos Cindy, patient's girlfriend. Total critical care time, 65 minutes. Job ID: [id number]
[2018-11-14 01:37] LABS: Amphetamine Detected (NotDetected); Barbiturates Screen Not Detected (NotDetected); Benzodiazepine Screen Detected (NotDetected); Cocaine Metabolite Screen Not Detected (NotDetected); Medtox Control Line Valid? VALID (VALID); Medtox Reader # READER 4; Methadone Not Detected (NotDetected); Methamphetamine Detected (NotDetected); Opiate Screen Not Detected (NotDetected); Oxycodone Screen Not Detected (NotDetected); Phencyclidine (PCP) Not Detected (NotDetected); THC/Cannabinoid Screen Not Detected (NotDetected); Tricyclic Screen Not Detected (NotDetected)
[2018-11-14 03:41] LABS: Anion Gap 14 mmol/L (10-20); BUN (Urea Nitrogen) 17 mg/dL (8.9-20.6); Calc. Creatinine Clearance 100 mL/min (70-130); Calcium 8.3 mg/dL (7.8-10.44); Carbon Dioxide 27 mmol/L (22-29); Chloride 102 mmol/L (98-107); Estimated GFR-MDRD 53; Glucose 428 mg/dL (70-105); Potassium 4.6 mmol/L (3.5-5.1); Sodium 138 mmol/L (136-145)
[2018-11-14 05:06] LABS: Band 8 % (5-11); Eosinophils 2 % (0-10); Lymphocytes 26 % (21-51); MDiff Complete? YES; Mean Corpuscular HGB CONC 33.3 g/dL (32.0-36.0); Mean Corpuscular Hemoglobin 28.7 pg (27.0-31.0); Mean Corpuscular Volume 86.1 fL (78.0-98.0); Mean Platelet Volume 8.3 fL (7.4-10.4); Monocytes 10 % (0-10); Neutrophil 54 % (42-75); Platelet Count 218 thou/uL (130-400); RBC Distribution Width 13.9 % (11.5-14.5); Red Blood Cell (RBC) Count 4.52 mill/uL (4.70-6.10); White Blood Cell (WBC) Count 8.4 thou/uL (4.8-10.8)
[2018-11-14] MEDS: D5 1/2 NS w/20 mEq KCL 1,000 ML IV PRN ×2 (06:26→09:51)
[2018-11-14 07:31] LABS: Actual Bicarbonate (HCO3a) 26.3 mEq/L (22-28); Base Excess (BEa) 0.4 mEq/L (-2.0 to +3.0); CO2 Tension 47.6 mmHg (35.0-45.0); Calcium, Ionized 1.14 mmol/L (1.12-1.30); Carboxyhemoglobin (COHb) 1.4 gm% (0.0-3.0); Hemoglobin (Hb) 13.5 g/dL (14.0-18.0); O2 Tension (PaO2) 72.3 mmHg (80.0-100.0); Potassium - ABG Lab 3.61 mmol/L (3.70-5.30); pH, Arterial 7.36 (7.35-7.45)
[2018-11-14 07:49] LABS: Anion Gap 13 mmol/L (10-20); BUN (Urea Nitrogen) 15 mg/dL (8.9-20.6); Calc. Creatinine Clearance 116 mL/min (70-130); Calcium 8.2 mg/dL (7.8-10.44); Carbon Dioxide 24 mmol/L (22-29); Chloride 106 mmol/L (98-107); Estimated GFR-MDRD 63; Glucose 293 mg/dL (70-105); Potassium 4.2 mmol/L (3.5-5.1); Sodium 139 mmol/L (136-145)
--- NOTE | 2018-11-14 09:11 | RAD ---
SINGLE VIEW OF THE CHEST: Comparison: 11-13-18 History: Respiratory failure. FINDINGS: Single view of the chest shows an enlarged but stable cardiomediastinal silhouette. The pacemaker is unchanged in position. The NG tube is difficult to visualized completely. Endotracheal tube is unchan ged in position. There is obscurity of the left hemidiaphragm which may be secondary to enlarged hear t versus a small left pleural effusion. IMPRESSION: Stable exam. POS: KAM
[2018-11-14] MEDS: Famotidine/PF 20 mg/2ml Vial SLOW IVP SCH ×2 (09:29→21:21)
[2018-11-14 09:34] LABS: Puncture Site LRA
[2018-11-14] MEDS: Lorazepam 2 MG/ML VIAL SLOW IVP PRN (09:34)
[2018-11-14] MEDS: Propofol 1,000 MG/100 ML VIAL IV PRN ×2 (09:51→17:36)
[2018-11-14] MEDS: fentaNYL Citrate/PF 2,000 MCG in Sodium Chloride 0.9% 60 ML IV SCH ×2 (09:58→20:47)
--- NOTE | 2018-11-14 10:05 | CON ---
DATE OF CONSULTATION: HISTORY OF PRESENT ILLNESS: Saeid Best is a 52-year-old gentleman who was brought into the ER by his girlfriend is sitting at the bedside. History is kind of sketchy, but apparently they were driving to the ER when he developed some slurred speech and facial drooping. In the ER in [place], he was taken over there where he was somewhat dysarthric, slurred speech, confusion. He apparently developed status epilepticus that was not extinguished with 8 mg IV Ativan. He was intubated and transferred to the hospital. PAST MEDICAL HISTORY: Apparently, has included hypertension, obesity, carotid disease, bipolar disorder, tobacco abuse. PREVIOUS SURGERIES: Including cardiac cath and 5 stents, pacemaker. SOCIAL HISTORY: Alcohol, drinks. Previous substance abuse as per the girlfriend. Smokes a pack a day. MEDICATIONS: At home includes Eliquis 5 two a day, Coreg 12.5, Lasix 20, atorvastatin 40, famotidine 20. She is unclear who his primary care physician is. His home medicine otherwise also includes thiamine, spironolactone, Lasix, lisinopril 10, Coreg 6.25, aspirin. ALLERGIES: HE HAS NO ALLERGIES. REVIEWING HIS PREVIOUS NOTE FROM THE HOSPITAL LAST YEAR, STATES THAT HIS EJECTION FRACTION IS ONLY 20%. PREVIOUS CVA. REVIEW OF SYSTEMS: Otherwise unobtainable. He is intubated in the vent, sedated. PHYSICAL EXAMINATION: VITAL SIGNS: Pulse is 90, blood pressure is 80/60, sats 90%, respiratory rate 18. CHEST: Decreased breath sounds. No wheezing. CARDIAC: Normal S1, S2. No gallops. ABDOMEN: Soft, distended. EXTREMITIES: No edema. NEUROLOGIC: Sedated. PERTINENT LABORATORY AND X-RAY FINDINGS: X-ray shows cardiomegaly, left-sided effusion. White count is 8,000, H and H is 13 and 38, platelet count is 218. His chemistry profile shows creatinine is 1.43, which appears to be at his baseline. His glucose is 241. A toxicology screen done which shows he had amphetamines, methamphetamines, and benzos. Alcohol level was otherwise unremarkable. IMPRESSION: 1. Status post new onset seizures. 2. Diabetes. 3. Congestive cardiomyopathy, EF 25%. 4. Renal failure. 5. Bipolar. 6. Substance abuse. At this stage he is not weanable. Continue Keppra. Await input from Neurology. Continue cardiac care, input from Cardiology. Pulmonary will follow while in the ICU. This is a 45 minute critical time. Job ID: [id number]
[2018-11-14] MEDS: levETIRAcetam In NaCl (Iso-Os) 1,000 MG in Premix Bag 1 BAG IVPB SCH ×2 (11:06→21:21)
--- NOTE | 2018-11-14 14:06 | PDOC.PN ---
- Subjective Encounter Start Date: 11/14/18 Encounter Start Time: 12:10 -: non-verbal, old records requested/rev Pt seen and examined, chart reviewed in its entirety, this is my first visit with this patient follow up for seizure, encephaloapthy, hyperglycemia/DM2 and COPD No F/C, no N/V/D/C. No cough or sputum all systems reviewed and neg x as above - Objective Resuscitation Status - Order Detail: 11/13/18 21:47 Resuscitation Status Routine Resuscitation Status: FULL: Full Resuscitation MAR Reviewed: Yes Vital Signs & Weight: Vital Signs (12 hours) Temp Pulse Resp BP Pulse Ox 11/14/18 13:47 100 97/75 11/14/18 13:45 100 16 99 11/14/18 12:00 99.5 F 16 11/14/18 10:15 92 84/54 L 11/14/18 10:00 18 11/14/18 08:00 99.4 F 18 96 11/14/18 07:18 90 95/65 11/14/18 06:00 18 11/14/18 04:00 99.2 F 18 11/14/18 03:13 89 Weight Weight 292 lb 5.327 oz Most Recent Monitor Data Heart Rate from ECG 97 NIBP 100/70 NIBP BP-Mean 80 Respiration from ECG 17 SpO2 99 I&O: 11/13/18 11/14/18 11/15/18 06:59 06:59 06:59 Intake Total 1587 Output Total 940 225 Balance 647 -225 Result Diagrams: 11/15/18 04:28 11/15/18 04:28 Additional Labs: Accuchecks 11/14/18 11/14/18 11/14/18 13:09 12:06 11:12 POC Glucose 144 H 191 H 182 H 11/14/18 11/14/18 11/14/18 10:12 09:15 07:47 POC Glucose 149 H 241 H 257 H 11/14/18 11/14/18 11/14/18 06:10 05:12 04:10 POC Glucose 197 H 259 H 290 H 11/14/18 11/14/18 11/14/18 03:06 02:10 01:14 POC Glucose 405 H 439 H 440 H 11/14/18 11/13/18 11/13/18 00:05 21:43 19:28 POC Glucose 535 H Greater than 550 H* Greater than 550 H* Radiology Reviewed by me: Yes EKG Reviewed by me: Yes Phys Exam - Physical Examination Constitutional: NAD HEENT: PERRLA, moist MMs, sclera anicteric oraly intubated Neck: no nodes, no JVD, supple, full ROM Respiratory: no rales, no rhonchi, wheezing present, clear to auscultation bilateral Cardiovascular: RRR, no significant murmur, no rub Gastrointestinal: soft, non-tender, no distention, positive bowel sounds Musculoskeletal: edema present sedated and intubated, no Tonic/clonic activity seen, no REM Lymphatic: no nodes Skin: no rash, normal turgor, cap refill <2 seconds Dx/Plan (1) Acute CVA (cerebrovascular accident) Code(s): I63.9 - CEREBRAL INFARCTION, UNSPECIFIED Status: Acute (2) Elevated troponin Code(s): R74.8 - ABNORMAL LEVELS OF OTHER SERUM ENZYMES Status: Acute (3) Alcohol abuse Code(s): F10.10 - ALCOHOL ABUSE, UNCOMPLICATED Status: Chronic (4) Anxiety and depression Code(s): F41.9 - ANXIETY DISORDER, UNSPECIFIED; F32.9 - MAJOR DEPRESSIVE DISORDER, SINGLE EPISODE, UNSPECIFIED Status: Chronic (5) CAD (coronary artery disease) Code(s): I25.10 - ATHSCL HEART DISEASE OF [place] CORONARY ARTERY W/O ANG PCTRS Status: Chronic Qualifiers: Coronary Disease-Associated Artery/Lesion type: [place] artery [place] vs. transplanted heart: [place] heart Associated angina: without angina Qualified Code(s): I25.10 - Atherosclerotic heart disease of [place] coronary artery without angina pectoris (6) CKD (chronic kidney disease) stage 2, GFR 60-89 ml/min Code(s): N18.2 - CHRONIC KIDNEY DISEASE, STAGE 2 (MILD) Status: Chronic (7) COPD (chronic obstructive pulmonary disease) Status: Chronic Qualifiers: COPD type: unspecified COPD Qualified Code(s): J44.9 - Chronic obstructive pulmonary disease, unspecified (8) Chronic systolic heart failure, ACC/AHA stage C Code(s): I50.22 - CHRONIC SYSTOLIC (CONGESTIVE) HEART FAILURE Status: Chronic (9) Diabetes type 2, controlled Code(s): E11.9 - TYPE 2 DIABETES MELLITUS WITHOUT COMPLICATIONS Status: Chronic Qualifiers: Diabetes mellitus [place] insulin use: without [place] use Diabetes mellitus complication status: without complication Qualified Code(s): E11.9 - Type 2 diabetes mellitus without complications (10) Dyslipidemia Code(s): E78.5 - HYPERLIPIDEMIA, UNSPECIFIED Status: Chronic (11) Hypertension Code(s): I10 - ESSENTIAL (PRIMARY) HYPERTENSION Status: Chronic Qualifiers: Hypertension type: essential hypertension Qualified Code(s): I10 - Essential (primary) hypertension (12) Ischemic cardiomyopathy Code(s): I25.5 - ISCHEMIC CARDIOMYOPATHY Status: Chronic (13) Obesity (BMI 30.0-34.9) Code(s): E66.9 - OBESITY, UNSPECIFIED Status: Chronic (14) Polysubstance abuse Code(s): F19.10 - OTHER PSYCHOACTIVE SUBSTANCE ABUSE, UNCOMPLICATED Status: Chronic (15) Seizure Code(s): R56.9 - UNSPECIFIED CONVULSIONS Status: Acute - Plan cont current plan of care, respiratory therapy * . CCM, follow up on neuro recs, continue srinivas
[2018-11-14] MEDS ORDERED: Dextrose 5% in Water 1,000 ML IV PRN (14:43)
[2018-11-14] MEDS ORDERED: Dextrose 50% Abboject 50 ML SYRINGE IVP PRN (14:43)
[2018-11-14] MEDS: HumaLOG 300 UNITS/3 ML VIAL SC PRN ×2 (16:10→21:27)
[2018-11-15] MEDS: HumaLOG 300 UNITS/3 ML VIAL SC PRN ×6 (00:14→21:32)
[2018-11-15] MEDS: Propofol 1,000 MG/100 ML VIAL IV PRN ×7 (00:20→23:54)
[2018-11-15] MEDS: Acetaminophen 650 MG Suppository PR PRN (03:41)
[2018-11-15 05:02] LABS: Band 1 % (5-11); Lymphocytes 15 % (21-51); MDiff Complete? YES; Mean Corpuscular HGB CONC 33.3 g/dL (32.0-36.0); Mean Corpuscular Hemoglobin 29.1 pg (27.0-31.0); Mean Corpuscular Volume 87.3 fL (78.0-98.0); Mean Platelet Volume 8.3 fL (7.4-10.4); Monocytes 10 % (0-10); Neutrophil 73 % (42-75); Platelet Count 230 thou/uL (130-400); RBC Distribution Width 14.3 % (11.5-14.5); Reactive Lymphocytes 1 % (0-10); Red Blood Cell (RBC) Count 4.82 mill/uL (4.70-6.10); White Blood Cell (WBC) Count 12.6 thou/uL (4.8-10.8)
[2018-11-15 05:06] LABS: Anion Gap 13 mmol/L (10-20); BUN (Urea Nitrogen) 17 mg/dL (8.9-20.6); Calc. Creatinine Clearance 110 mL/min (70-130); Calcium 8.3 mg/dL (7.8-10.44); Carbon Dioxide 22 mmol/L (22-29); Chloride 107 mmol/L (98-107); Estimated GFR-MDRD 60; Glucose 239 mg/dL (70-105); Potassium 4.8 mmol/L (3.5-5.1); Sodium 137 mmol/L (136-145)
[2018-11-15 07:19] LABS: Actual Bicarbonate (HCO3a) 20.9 mEq/L (22-28); Base Excess (BEa) -4.2 mEq/L (-2.0 to +3.0); CO2 Tension 38.8 mmHg (35.0-45.0); Calcium, Ionized 1.14 mmol/L (1.12-1.30); Carboxyhemoglobin (COHb) 1.8 gm% (0.0-3.0); Hemoglobin (Hb) 16.3 g/dL (14.0-18.0); O2 Tension (PaO2) 76.2 mmHg (80.0-100.0); Potassium - ABG Lab 5.05 mmol/L (3.70-5.30); pH, Arterial 7.35 (7.35-7.45)
[2018-11-15] MEDS: fentaNYL Citrate/PF 2,000 MCG in Sodium Chloride 0.9% 60 ML IV SCH (07:19)
[2018-11-15 07:26] LABS: Puncture Site LRA
[2018-11-15] MEDS: levETIRAcetam In NaCl (Iso-Os) 1,000 MG in Premix Bag 1 BAG IVPB SCH ×2 (08:06→20:30)
[2018-11-15] MEDS: Famotidine/PF 20 mg/2ml Vial SLOW IVP SCH ×2 (08:06→20:30)
--- NOTE | 2018-11-15 09:41 | RAD ---
PORTABLE UPRIGHT FRONTAL CHEST RADIOGRAPH: Date: 11-15-18 Comparison: 11-14-18 History: Respiratory failure. FINDINGS: Stable endotracheal tube. Nasogastric tube in place, the distal tip difficult to visualize secondary to body habitus and portable technique. Increased linear density noted in the medial right lung base, nonspecific and worsened since the prio r exam. There is dense opacity in the left base suggesting left lower lobe consolidation/collapse and left pleural effusion. Stable single lead transvenous pacing device. IMPRESSION: 1. Lines and tubes as detailed above. 2. Bibasilar opacity noted, left greater than right. Findings may signify volume loss, infectious pne umonitis or edema. Follow up advised. POS: [facility]
--- NOTE | 2018-11-15 10:33 | PRG ---
DATE OF SERVICE: SUBJECTIVE: Saeid Best is a 52-year-old gentleman, who is intubated on the vent. OBJECTIVE: VITAL SIGNS: His blood pressure is 96/74, pulse 81, respiratory rate 18, temperature is 101.3. CHEST: Decreased breath sounds without any wheezing. CARDIAC: Normal S1 and S2. No gallops. ABDOMEN: No masses. LABORATORY DATA: His white count is 12,000, H and H 14 and 42, platelet count is normal. He has slight left shift. PO2 is 76, pCO2 . Creatinine is 1.5. X-ray shows cardiomegaly, left-sided pleural effusion. IMPRESSION: 1. Status post seizure activity, requiring intubation. 2. Cardiomegaly, congestive heart failure. 3. Left-sided pleural effusion. 4. Leukocytosis, fever. PLAN: Empiric antibiotics initiated. I would hold sedation to see what his baseline status. One-half hour of critical time. Job ID: [id number]
[2018-11-15] MEDS: Cefepime 1 GM in Sodium Chloride 0.9% 100 ML IVPB SCH ×2 (10:47→23:54)
--- NOTE | 2018-11-15 13:09 | PDOC.PN ---
- Subjective Encounter Start Date: 11/15/18 Encounter Start Time: 12:05 -: non-verbal follow up for Sz, DM, COPD, acute hypoxemic resp failure, HTN no significant changes. no new events ROS not obtainable - Objective Resuscitation Status - Order Detail: 11/13/18 21:47 Resuscitation Status Routine Resuscitation Status: FULL: Full Resuscitation MAR Reviewed: Yes Vital Signs & Weight: Vital Signs (12 hours) Temp Pulse Resp BP Pulse Ox 11/15/18 12:00 101.3 F H 24 H 11/15/18 11:00 101.5 F H 11/15/18 10:14 105 H 133/111 H 11/15/18 10:00 101.7 F H 28 H 11/15/18 09:00 101.3 F H 11/15/18 08:00 101.8 F H 24 H 95 11/15/18 07:00 102.9 F H 11/15/18 06:40 110 H 99/79 11/15/18 06:37 111 H 20 92 L 11/15/18 06:00 120.2 F H 24 H 11/15/18 05:00 101.4 F H 11/15/18 04:00 102.5 F H 22 H 11/15/18 03:00 101.6 F H 11/15/18 02:00 100.2 F H 16 Weight Admit Weight 292 lb Weight 292 lb 4.8 oz Most Recent Monitor Data Heart Rate from ECG 104 NIBP 107/79 NIBP BP-Mean 88 Respiration from ECG 31 SpO2 94 I&O: 11/14/18 11/15/18 11/16/18 06:59 06:59 06:59 Intake Total 1587 2252.9 Output Total 940 775 185 Balance 647 1477.9 -185 Result Diagrams: 11/15/18 04:28 11/15/18 04:28 Additional Labs: Accuchecks 11/15/18 11/15/18 11/15/18 12:03 08:29 04:16 POC Glucose 220 H 202 H 192 H 11/15/18 11/14/18 11/14/18 00:13 20:27 16:06 POC Glucose 242 H 232 H 193 H 11/14/18 11/14/18 14:09 13:09 POC Glucose 157 H 144 H Phys Exam - Physical Examination Constitutional: NAD HEENT: PERRLA, moist MMs, sclera anicteric, oral pharynx no lesions Neck: no nodes, no JVD, supple, full ROM Respiratory: no rales, no rhonchi, wheezing present Cardiovascular: RRR, no significant murmur, no rub Gastrointestinal: soft, non-tender, no distention, positive bowel sounds Musculoskeletal: edema present Lymphatic: no nodes Skin: no rash, normal turgor, cap refill <2 seconds Dx/Plan (1) Elevated troponin Code(s): R74.8 - ABNORMAL LEVELS OF OTHER SERUM ENZYMES Status: Acute (2) Alcohol abuse Code(s): F10.10 - ALCOHOL ABUSE, UNCOMPLICATED Status: Chronic (3) Anxiety and depression Code(s): F41.9 - ANXIETY DISORDER, UNSPECIFIED; F32.9 - MAJOR DEPRESSIVE DISORDER, SINGLE EPISODE, UNSPECIFIED Status: Chronic (4) CAD (coronary artery disease) Code(s): I25.10 - ATHSCL HEART DISEASE OF [place] CORONARY ARTERY W/O ANG PCTRS Status: Chronic Qualifiers: Coronary Disease-Associated Artery/Lesion type: [place] artery [place] vs. transplanted heart: [place] heart Associated angina: without angina Qualified Code(s): I25.10 - Atherosclerotic heart disease of [place] coronary artery without angina pectoris (5) CKD (chronic kidney disease) stage 2, GFR 60-89 ml/min Code(s): N18.2 - CHRONIC KIDNEY DISEASE, STAGE 2 (MILD) Status: Chronic (6) COPD (chronic obstructive pulmonary disease) Status: Chronic Qualifiers: COPD type: unspecified COPD Qualified Code(s): J44.9 - Chronic obstructive pulmonary disease, unspecified (7) Chronic systolic heart failure, ACC/AHA stage C Code(s): I50.22 - CHRONIC SYSTOLIC (CONGESTIVE) HEART FAILURE Status: Chronic (8) Diabetes type 2, controlled Code(s): E11.9 - TYPE 2 DIABETES MELLITUS WITHOUT COMPLICATIONS Status: Chronic Qualifiers: Diabetes mellitus senior care insulin use: without longwall foreman use Diabetes mellitus complication status: without complication Qualified Code(s): E11.9 - Type 2 diabetes mellitus without complications (9) Dyslipidemia Code(s): E78.5 - HYPERLIPIDEMIA, UNSPECIFIED Status: Chronic (10) Hypertension Code(s): I10 - ESSENTIAL (PRIMARY) HYPERTENSION Status: Chronic Qualifiers: Hypertension type: essential hypertension Qualified Code(s): I10 - Essential (primary) hypertension (11) Ischemic cardiomyopathy Code(s): I25.5 - ISCHEMIC CARDIOMYOPATHY Status: Chronic (12) Obesity (BMI 30.0-34.9) Code(s): E66.9 - OBESITY, UNSPECIFIED Status: Chronic (13) Polysubstance abuse Code(s): F19.10 - OTHER PSYCHOACTIVE SUBSTANCE ABUSE, UNCOMPLICATED Status: Chronic (14) Seizure Code(s): R56.9 - UNSPECIFIED CONVULSIONS Status: Acute - Plan cont current plan of care, PT/OT, respiratory therapy * . sedation on hold see status
[2018-11-16] MEDS: HumaLOG 300 UNITS/3 ML VIAL SC PRN ×6 (00:14→21:49)
[2018-11-16] MEDS: Propofol 1,000 MG/100 ML VIAL IV PRN ×5 (04:58→22:07)
[2018-11-16 05:41] LABS: Anion Gap 13 mmol/L (10-20); BUN (Urea Nitrogen) 27 mg/dL (8.9-20.6); Calc. Creatinine Clearance 110 mL/min (70-130); Calcium 8.8 mg/dL (7.8-10.44); Carbon Dioxide 22 mmol/L (22-29); Chloride 106 mmol/L (98-107); Estimated GFR-MDRD 60; Glucose 272 mg/dL (70-105); Potassium 4.5 mmol/L (3.5-5.1); Sodium 136 mmol/L (136-145)
[2018-11-16 05:56] LABS: Band 12 % (5-11); Eosinophils 1 % (0-10); Hemoglobin 13.3 g/dL (14.0-18.0); Lymphocytes 16 % (21-51); MDiff Complete? YES; Mean Corpuscular HGB CONC 32.5 g/dL (32.0-36.0); Mean Corpuscular Hemoglobin 28.5 pg (27.0-31.0); Mean Corpuscular Volume 87.7 fL (78.0-98.0); Mean Platelet Volume 8.5 fL (7.4-10.4); Monocytes 10 % (0-10); Neutrophil 60 % (42-75); Platelet Count 200 thou/uL (130-400); RBC Distribution Width 14.3 % (11.5-14.5); Red Blood Cell (RBC) Count 4.68 mill/uL (4.70-6.10); White Blood Cell (WBC) Count 9.5 thou/uL (4.8-10.8)
[2018-11-16] MEDS: Famotidine/PF 20 mg/2ml Vial SLOW IVP SCH ×2 (08:28→21:48)
[2018-11-16] MEDS: levETIRAcetam In NaCl (Iso-Os) 1,000 MG in Premix Bag 1 BAG IVPB SCH ×2 (08:28→21:47)
[2018-11-16] MEDS: fentaNYL Citrate/PF 2,000 MCG in Sodium Chloride 0.9% 60 ML IV SCH (08:32)
[2018-11-16 08:37] LABS: Actual Bicarbonate (HCO3a) 22.9 mEq/L (22-28); Base Excess (BEa) -3.3 mEq/L (-2.0 to +3.0); CO2 Tension 45.2 mmHg (35.0-45.0); Calcium, Ionized 1.18 mmol/L (1.12-1.30); Carboxyhemoglobin (COHb) 1.6 gm% (0.0-3.0); Hemoglobin (Hb) 14.2 g/dL (14.0-18.0); O2 Tension (PaO2) 92.5 mmHg (80.0-100.0); Potassium - ABG Lab 4.62 mmol/L (3.70-5.30); pH, Arterial 7.32 (7.35-7.45)
[2018-11-16 08:38] LABS: Puncture Site LRA
--- NOTE | 2018-11-16 08:54 | RAD ---
SINGLE VIEW OF THE CHEST: Comparison: 11-15-18 History: Respiratory failure. FINDINGS: Single view of the chest shows an enlarged but stable cardiomediastinal silhouette. The pacemaker is unchanged in position. Endotracheal tube and NG tube are unchanged in position. There is no evidence of consolidation, mass, or pleural effusion. IMPRESSION: Stable cardiomegaly. POS: [facility]
--- NOTE | 2018-11-16 09:56 | PRG ---
DATE OF SERVICE: 11/16/2018 SUBJECTIVE: Saeid Best is a 52-year-old morbidly obese gentleman, who is intubated on the vent, remains on fentanyl and Diprivan, agitated when his sedation is withheld. OBJECTIVE: VITAL SIGNS: His temperature 100.2, blood pressure 108/79, pulse 88, respiratory rate 18. CHEST: Decreased breath sounds. No wheezing. CARDIAC: Normal S1 and S2. No gallops. ABDOMEN: No mass. LABORATORY STUDIES: White count 9,000, hemoglobin and hematocrit of 13 and 41, platelet count is normal. His pO2 is 92, pCO2 on a rate of 10, 40%. Creatinine 1.5. IMPRESSION: 1. Respiratory failure. 2. Status post seizure disorder. 3. Congestive cardiomyopathy. PLAN: Minimize sedation. Continue nutrition. Broad-spectrum antibiotics. He is still not weanable. Await input from Cardiology. One-half hour critical time. Job ID: [id number]
[2018-11-16] MEDS: Cefepime 1 GM in Sodium Chloride 0.9% 100 ML IVPB SCH ×2 (10:41→23:59)
--- NOTE | 2018-11-16 11:22 | PDOC.PN ---
- Subjective Encounter Start Date: 11/16/18 Encounter Start Time: 11:21 Mr. Best was seen today in follow-up of acute respiratory failure and new onset seizures. He is intubated. When the sedation his decreased he becomes very agitated. - Objective Resuscitation Status - Order Detail: 11/13/18 21:47 Resuscitation Status Routine Resuscitation Status: FULL: Full Resuscitation MAR Reviewed: Yes Vital Signs & Weight: Vital Signs (12 hours) Temp Pulse Resp BP Pulse Ox 11/16/18 10:42 104 H 109/72 11/16/18 10:00 26 H 11/16/18 08:00 100.2 F H 20 11/16/18 07:43 101 H 109/81 11/16/18 07:37 99 21 H 94 L 11/16/18 06:00 22 H 11/16/18 04:00 98.9 F 23 H 11/16/18 02:00 21 H 11/16/18 00:00 99.7 F H 22 H 11/15/18 23:42 98 20 94 L Weight Admit Weight 292 lb Weight 296 lb 1.293 oz Most Recent Monitor Data Heart Rate from ECG 108 NIBP 109/73 NIBP BP-Mean 85 Respiration from ECG 20 SpO2 97 I&O: 11/15/18 11/16/18 11/17/18 06:59 06:59 06:59 Intake Total 2252.9 1487 Output Total 775 1040 285 Balance 1477.9 447 -285 Result Diagrams: 11/16/18 04:39 11/16/18 04:39 Additional Labs: Accuchecks 11/16/18 11/16/18 11/16/18 08:28 04:08 00:14 POC Glucose 239 H 236 H 230 H 11/15/18 11/15/18 11/15/18 21:24 16:17 12:03 POC Glucose 195 H 207 H 220 H Phys Exam - Physical Examination HEENT: PERRLA + rhonchi bilaterally, Cardiovascular: RRR, no significant murmur, no rub Gastrointestinal: soft, non-tender, no distention, positive bowel sounds Musculoskeletal: no edema, pulses present Dx/Plan (1) Seizure Code(s): R56.9 - UNSPECIFIED CONVULSIONS Status: Acute (2) Acute respiratory failure Code(s): J96.00 - ACUTE RESPIRATORY FAILURE, UNSP W HYPOXIA OR HYPERCAPNIA Status: Acute (3) Chronic systolic heart failure, ACC/AHA stage C Code(s): I50.22 - CHRONIC SYSTOLIC (CONGESTIVE) HEART FAILURE Status: Chronic (4) Diabetes type 2, controlled Code(s): E11.9 - TYPE 2 DIABETES MELLITUS WITHOUT COMPLICATIONS Status: Chronic Qualifiers: Diabetes mellitus senior living insulin use: without long term care social worker use Diabetes mellitus complication status: without complication Qualified Code(s): E11.9 - Type 2 diabetes mellitus without complications (5) Hypertension Code(s): I10 - ESSENTIAL (PRIMARY) HYPERTENSION Status: Chronic Qualifiers: Hypertension type: essential hypertension Qualified Code(s): I10 - Essential (primary) hypertension (6) Polysubstance abuse Code(s): F19.10 - OTHER PSYCHOACTIVE SUBSTANCE ABUSE, UNCOMPLICATED Status: Chronic - Plan * New Onset Seizure- continue Keppra IV, and await Neurology input- possible related to polysubstance abuse * Acute respiratory failure- he has thick secretions, and he may have aspirated during his initial presentation- Continue Cefepime * DM- continue SSI and will add a lose dose Lantus * HTN - blood pressure is controlled
--- NOTE | 2018-11-16 16:56 | PDOC.EVN ---
Event Note - Event Note Event Note: The Neurology team has asked to be re-consulted once he is Extubated.
--- NOTE | 2018-11-16 19:06 | PDOC.CTH ---
Cardiology Progress Note - Subjective No changes noted overnight - Objective Vital Signs Temp Pulse Resp BP Pulse Ox 11/16/18 18:52 96 108/82 11/16/18 18:50 96 20 95 11/16/18 18:00 18 11/16/18 16:00 98.8 F 19 11/16/18 15:57 94 103/71 11/16/18 14:00 18 11/16/18 13:04 96 103/67 11/16/18 13:03 94 23 H 96 11/16/18 12:00 99.6 F 26 H 11/16/18 10:42 104 H 109/72 11/16/18 10:00 26 H 11/16/18 08:00 100.2 F H 20 11/16/18 07:43 101 H 109/81 11/16/18 07:37 99 21 H 94 L Admit Weight 292 lb Weight 296 lb 1.293 oz 11/15/18 11/16/18 11/17/18 06:59 06:59 06:59 Intake Total 2252.9 1487 1403 Output Total 775 1040 895 Balance 1477.9 447 508 - Physical Examination Neck: carotid US brisk, no JVD present Lungs: CTA, unlabored respirations Heart: PMI normal, RRR Abdomen: NT/ND, soft Extremities: + femoral B - Telemetry Telemetry Rhythm: SR - Labs Result Diagrams: 11/16/18 04:39 11/16/18 04:39 - Assessment/Plan Respiratory arrect seizure polysubstance abuse cardiomyopathy s/p ICD No changes other than CV meds for previous h/o CHF (although given non-comliance , unsure he will take as op) interrogate ICD Add low dose BB through NGT
[2018-11-16] MEDS ORDERED: Insulin Glargine 10 UNITS in Pre-Filled Syringe 1 EACH SC SCH (21:00)
[2018-11-16] MEDS: Carvedilol 6.25 MG TAB PO SCH (21:47)
[2018-11-17] MEDS: HumaLOG 300 UNITS/3 ML VIAL SC PRN ×6 (01:20→21:29)
[2018-11-17] MEDS: Propofol 1,000 MG/100 ML VIAL IV PRN ×5 (04:26→21:28)
[2018-11-17 06:26] LABS: #Basophils 0.1 thou/uL (0.0-0.2); #Eosinphils 0.2 thou/uL (0.0-0.7); #Lymphocytes 1.1 thou/uL (1.20-3.40); #Monocytes 0.8 thou/uL (0.11-0.59); #Neutrophils 5.8 thou/uL (1.40-6.50); %Basophils 0.7 % (0.0-1.0); %Lymphocytes 13.6 % (21.0-51.0); %Monocytes 10.4 % (0.0-10.0); %Neutrophils 72.3 % (42.0-75.0); Hemoglobin 13.1 g/dL (14.0-18.0); Mean Corpuscular HGB CONC 31.8 g/dL (32.0-36.0); Mean Corpuscular Hemoglobin 28.6 pg (27.0-31.0); Mean Corpuscular Volume 90.1 fL (78.0-98.0); Mean Platelet Volume 8.7 fL (7.4-10.4); Platelet Count 190 thou/uL (130-400); RBC Distribution Width 14.3 % (11.5-14.5); Red Blood Cell (RBC) Count 4.58 mill/uL (4.70-6.10)
[2018-11-17 06:48] LABS: Anion Gap 12 mmol/L (10-20); BUN (Urea Nitrogen) 26 mg/dL (8.9-20.6); Calc. Creatinine Clearance 135 mL/min (70-130); Carbon Dioxide 22 mmol/L (22-29); Chloride 106 mmol/L (98-107); Estimated GFR-MDRD 75; Glucose 324 mg/dL (70-105); Potassium 4.7 mmol/L (3.5-5.1); Sodium 135 mmol/L (136-145)
[2018-11-17 07:32] LABS: Actual Bicarbonate (HCO3a) 24.4 mEq/L (22-28); Base Excess (BEa) -1.2 mEq/L (-2.0 to +3.0); Carboxyhemoglobin (COHb) 1.3 gm% (0.0-3.0); O2 Tension (PaO2) 99.5 mmHg (80.0-100.0); Potassium - ABG Lab 4.55 mmol/L (3.70-5.30); pH, Arterial 7.36 (7.35-7.45)
[2018-11-17 07:33] LABS: Calcium, Ionized 1.19 mmol/L (1.12-1.30); Puncture Site RRA
--- NOTE | 2018-11-17 08:46 | RAD ---
CHEST 1 VIEW: Date: 11/17/18 HISTORY: Respiratory failure. COMPARISON: 11/16/18. FINDINGS: There is rotation to the left. Monitor leads overlie the chest. NG tube and endotracheal tubes are so mewhat obscured by the monitor leads. There is cardiomegaly with bilateral vascular congestion and bi lateral pleural effusions with poor inspiratory effort. Left ICD. Minimal motion artifact. IMPRESSION: Somewhat less than optimal study technically because of rotation and motion and poor inspiratory effo rt, with bilateral vascular congestion, cardiomegaly, and pleural effusions, with little change from prior study. POS: [facility]
[2018-11-17] MEDS: Famotidine/PF 20 mg/2ml Vial SLOW IVP SCH ×2 (09:23→21:24)
[2018-11-17] MEDS: Carvedilol 6.25 MG TAB PO SCH ×2 (09:23→21:23)
[2018-11-17] MEDS: Insulin Glargine 10 UNITS in Pre-Filled Syringe 1 EACH SC SCH (09:33)
[2018-11-17] MEDS: levETIRAcetam In NaCl (Iso-Os) 1,000 MG in Premix Bag 1 BAG IVPB SCH ×2 (09:36→21:22)
--- NOTE | 2018-11-17 09:43 | PRG ---
DATE OF SERVICE: 11/17/2018 SUBJECTIVE: This morning, he is intubated in the vent, sedated because very agitated of his sedation. OBJECTIVE: VITAL SIGNS: Pulse is 97, blood pressure 130/87, saturations of 95% to 96%, respiratory rate 23. His I's and O's over the last 24 hours have been 2497 in and 1765 out. CHEST: Decreased breath sounds. No wheezing. CARDIAC: Normal S1 and S2. No gallops. ABDOMEN: Soft. No masses. LABORATORY DATA: White count 8000, hemoglobin and hematocrit 13 and 41, and platelet count 190. His pO2 is 99, pCO2 is 44, pH 7.36, BUN and creatinine normal. X-ray shows cardiomegaly with the left pleural effusion. IMPRESSION: Respiratory failure, seizure disorder, possibly aspiration, encephalopathy. PLAN: Hold sedation. Hopefully, we will try and wean and extubate today as possible. One half hour of critical time. Job ID: [id number]
[2018-11-17] MEDS: Cefepime 1 GM in Sodium Chloride 0.9% 100 ML IVPB SCH ×2 (12:42→22:55)
[2018-11-17] MEDS: fentaNYL Citrate/PF 2,000 MCG in Sodium Chloride 0.9% 60 ML IV SCH (17:09)
[2018-11-17] MEDS: risperiDONE 0.25 MG TAB PO SCH (21:25)
[2018-11-17] MEDS: Insulin Glargine 20 UNITS in Pre-Filled Syringe 1 EACH SC SCH (21:30)
[2018-11-18] MEDS: HumaLOG 300 UNITS/3 ML VIAL SC PRN ×6 (01:34→23:06)
[2018-11-18] MEDS: Propofol 1,000 MG/100 ML VIAL IV PRN ×6 (01:38→22:01)
[2018-11-18 05:35] LABS: Anion Gap 15 mmol/L (10-20); BUN (Urea Nitrogen) 28 mg/dL (8.9-20.6); Calc. Creatinine Clearance 143 mL/min (70-130); Calcium 9.2 mg/dL (7.8-10.44); Carbon Dioxide 22 mmol/L (22-29); Chloride 107 mmol/L (98-107); Estimated GFR-MDRD 81; Glucose 273 mg/dL (70-105); Potassium 5.3 mmol/L (3.5-5.1); Sodium 139 mmol/L (136-145)
[2018-11-18 05:39] LABS: Band 3 % (5-11); Eosinophils 3 % (0-10); Hemoglobin 13.4 g/dL (14.0-18.0); Lymphocytes 19 % (21-51); MDiff Complete? YES; Mean Corpuscular HGB CONC 32.3 g/dL (32.0-36.0); Mean Corpuscular Hemoglobin 28.8 pg (27.0-31.0); Mean Corpuscular Volume 89.2 fL (78.0-98.0); Mean Platelet Volume 8.9 fL (7.4-10.4); Monocytes 15 % (0-10); Neutrophil 60 % (42-75); Platelet Count 187 thou/uL (130-400); Platelet Morphology Comment Appears Adequate; RBC Distribution Width 14.2 % (11.5-14.5); Red Blood Cell (RBC) Count 4.64 mill/uL (4.70-6.10); White Blood Cell (WBC) Count 9.7 thou/uL (4.8-10.8)
--- NOTE | 2018-11-18 08:27 | PRG ---
DATE OF SERVICE: 11/17/2018 SUBJECTIVE: Mr. Best continues to be intubated. No new changes are present overnight. His ICD was interrogated. No significant dysrhythmias were present. There was normal function. OBJECTIVE: VITAL SIGNS: Blood pressure 110/81, pulse 89, and respiratory rate 20. LUNGS: Clear to auscultation. HEART: Regular rate and rhythm. ABDOMEN: Soft, nontender, and nondistended. EXTREMITIES: 2+ pitting edema. PERTINENT LABORATORY DATA: Hemoglobin 13.4, hematocrit 41.4. IMPRESSION: 1. Seizure. 2. Respiratory failure. 3. Illicit drug use. 4. Ischemic cardiomyopathy. RECOMMENDATIONS: CV status is stable. No new changes noted over the last several days. He is currently on Coreg and we will continue. No significant dysrhythmias were noted on his recent ICD interrogation to suggest a dysrhythmia as the etiology to his seizure. This seizure is likely related to a drug user. Otherwise, I have no further recommendation. We will follow peripherally. Job ID: [id number]
--- NOTE | 2018-11-18 09:34 | PRG ---
DATE OF SERVICE: 11/18/2018 SUBJECTIVE: He is intubated on the vent, sedated. With multiple medications, he became extremely agitated yesterday while we were trying to cut back on his sedation. I spoke to Cardiology, they tell me his AICD did not show any ventricular tachycardia. His EF is only 20%. OBJECTIVE: VITAL SIGNS: Pulse 91, blood pressure . CHEST: Bilateral rhonchi and crackles. CARDIAC: Normal S1 and S2. No gallops. ABDOMEN: No masses. LABORATORY DATA: White count 9000, H and H 13 and 41. Lytes are normal. Glucose 233. IMPRESSION AND PLAN: 1. Respiratory failure. 2. Status post seizures. 3. Congestive cardiomyopathy. 4. Major encephalopathy. I am not so sure he is weanable. We will try and minimize sedation today to see whether he is more appropriate. Otherwise, broad-spectrum antibiotics, Precedex, nutrition, PT, supportive care. One half hour of critical time. Job ID: [id number]
[2018-11-18] MEDS: Carvedilol 6.25 MG TAB PO SCH ×2 (10:21→22:55)
[2018-11-18] MEDS: Famotidine/PF 20 mg/2ml Vial SLOW IVP SCH ×2 (10:21→22:55)
[2018-11-18] MEDS: risperiDONE 0.25 MG TAB PO SCH ×2 (10:21→22:56)
[2018-11-18] MEDS: levETIRAcetam In NaCl (Iso-Os) 1,000 MG in Premix Bag 1 BAG IVPB SCH ×2 (10:39→22:56)
[2018-11-18] MEDS: Insulin Glargine 10 UNITS in Pre-Filled Syringe 1 EACH SC SCH (10:40)
[2018-11-18] MEDS: Cefepime 1 GM in Sodium Chloride 0.9% 100 ML IVPB SCH ×2 (10:41→23:04)
[2018-11-18] MEDS: fentaNYL Citrate/PF 2,000 MCG in Sodium Chloride 0.9% 60 ML IV SCH (19:20)
[2018-11-18] MEDS: Insulin Glargine 20 UNITS in Pre-Filled Syringe 1 EACH SC SCH (23:05)
[2018-11-19] MEDS: HumaLOG 300 UNITS/3 ML VIAL SC PRN ×5 (00:28→21:49)
[2018-11-19] MEDS: Propofol 1,000 MG/100 ML VIAL IV PRN ×5 (02:43→21:30)
[2018-11-19 05:52] LABS: #Basophils 0.1 thou/uL (0.0-0.2); #Eosinphils 0.3 thou/uL (0.0-0.7); #Lymphocytes 1.9 thou/uL (1.20-3.40); #Monocytes 1.2 thou/uL (0.11-0.59); #Neutrophils 6.1 thou/uL (1.40-6.50); %Basophils 0.8 % (0.0-1.0); %Eosinophils 2.7 % (0.0-10.0); %Lymphocytes 20.2 % (21.0-51.0); %Monocytes 12.8 % (0.0-10.0); %Neutrophils 63.5 % (42.0-75.0); Mean Corpuscular HGB CONC 32.3 g/dL (32.0-36.0); Mean Corpuscular Hemoglobin 28.7 pg (27.0-31.0); Mean Platelet Volume 8.6 fL (7.4-10.4); Platelet Count 195 thou/uL (130-400); RBC Distribution Width 14.2 % (11.5-14.5); Red Blood Cell (RBC) Count 4.51 mill/uL (4.70-6.10); White Blood Cell (WBC) Count 9.6 thou/uL (4.8-10.8)
[2018-11-19 06:05] LABS: Anion Gap 12 mmol/L (10-20); BUN (Urea Nitrogen) 38 mg/dL (8.9-20.6); Calc. Creatinine Clearance 130 mL/min (70-130); Carbon Dioxide 25 mmol/L (22-29); Chloride 108 mmol/L (98-107); Estimated GFR-MDRD 71; Glucose 244 mg/dL (70-105); Potassium 4.7 mmol/L (3.5-5.1); Sodium 140 mmol/L (136-145)
[2018-11-19] MEDS: Furosemide 40 MG/4 ML VIAL SLOW IVP SCH (09:47)
[2018-11-19] MEDS: Famotidine/PF 20 mg/2ml Vial SLOW IVP SCH ×2 (09:47→21:30)
[2018-11-19] MEDS: levETIRAcetam In NaCl (Iso-Os) 1,000 MG in Premix Bag 1 BAG IVPB SCH ×2 (09:47→21:30)
[2018-11-19] MEDS: Insulin Glargine 10 UNITS in Pre-Filled Syringe 1 EACH SC SCH (09:48)
[2018-11-19] MEDS: Carvedilol 6.25 MG TAB PO SCH ×2 (09:58→21:30)
[2018-11-19] MEDS: risperiDONE 0.25 MG TAB PO SCH ×2 (09:58→21:48)
--- NOTE | 2018-11-19 10:20 | PRG ---
DATE OF SERVICE: 11/19/2018 SUBJECTIVE: Saeid Best remains intubated in the vent, encephalopathic, but better. OBJECTIVE: VITAL SIGNS: Blood pressure 129/92, saturations are 93%, respiratory rate 18, pulse 99%. Afebrile. CHEST: Bilateral rhonchi, crackles. CARDIAC: Normal S1, S2. . LABORATORY DATA: Creatinine 1.2. Sputum is growing Streptococcus pneumoniae. White count 9.6. IMPRESSION: 1. Status post seizure activity. 2. Respiratory failure. 3. Aspiration pneumonia. 4. Streptococcus. 5. Encephalopathy. 6. Renal failure. 7. Congestive heart failure. PLAN: Continue broad-spectrum antibiotics. Minimize sedation. I am hopeful, we can try and wean and extubate in the next 24 to 48 hours. Continue daily Lasix. One-half hour of critical time. Job ID: [id number]
[2018-11-19] MEDS: Cefepime 1 GM in Sodium Chloride 0.9% 100 ML IVPB SCH ×2 (10:42→23:43)
--- NOTE | 2018-11-19 13:22 | PDOC.PN ---
- Subjective Encounter Start Date: 11/18/18 Encounter Start Time: 13:20 Patient seen and examined, gf at bedside, all questions answered. - Objective Resuscitation Status - Order Detail: 11/13/18 21:47 Resuscitation Status Routine Resuscitation Status: FULL: Full Resuscitation Vital Signs & Weight: Vital Signs (12 hours) Temp Pulse Resp BP 11/19/18 12:00 99.4 F 27 H 11/19/18 11:41 93 117/79 11/19/18 10:00 30 H 11/19/18 09:58 121/92 H 11/19/18 08:00 99.9 F H 20 11/19/18 06:08 91 91/65 11/19/18 06:00 21 H 11/19/18 04:00 99.7 F H 21 H 11/19/18 02:27 90 101/76 11/19/18 02:00 26 H Weight Admit Weight 292 lb Weight 296 lb 1.293 oz Most Recent Monitor Data Heart Rate from ECG 92 NIBP 116/84 NIBP BP-Mean 94 Respiration from ECG 26 SpO2 95 I&O: 11/18/18 11/19/18 11/20/18 06:59 06:59 06:59 Intake Total 2093.9 2130.1 150 Output Total 1710 1271 1702 Balance 383.9 859.1 -1552 Result Diagrams: 11/19/18 05:24 11/19/18 05:24 Additional Labs: Accuchecks 11/19/18 11/19/18 11/19/18 12:53 09:46 04:21 POC Glucose 242 H 202 H 216 H 11/19/18 11/18/18 11/18/18 00:24 21:11 17:12 POC Glucose 235 H 213 H 213 H 11/18/18 14:13 POC Glucose 246 H Phys Exam - Physical Examination Constitutional: NAD intubated NG tube in place coarse breath sounds no respiratory distress Cardiovascular: no significant murmur tachycardia Gastrointestinal: soft, non-tender, no distention, positive bowel sounds Musculoskeletal: pulses present, edema present (trace) Dx/Plan (1) Acute respiratory failure Code(s): J96.00 - ACUTE RESPIRATORY FAILURE, UNSP W HYPOXIA OR HYPERCAPNIA Status: Acute (2) Elevated troponin Code(s): R74.8 - ABNORMAL LEVELS OF OTHER SERUM ENZYMES Status: Acute (3) Diabetes type 2, controlled Code(s): E11.9 - TYPE 2 DIABETES MELLITUS WITHOUT COMPLICATIONS Status: Chronic Qualifiers: Diabetes mellitus laborer marine terminal insulin use: without retirement use Diabetes mellitus complication status: without complication Qualified Code(s): E11.9 - Type 2 diabetes mellitus without complications (4) Hypertension Code(s): I10 - ESSENTIAL (PRIMARY) HYPERTENSION Status: Chronic Qualifiers: Hypertension type: essential hypertension Qualified Code(s): I10 - Essential (primary) hypertension (5) Obesity (BMI 30.0-34.9) Code(s): E66.9 - OBESITY, UNSPECIFIED Status: Chronic (6) Polysubstance abuse Code(s): F19.10 - OTHER PSYCHOACTIVE SUBSTANCE ABUSE, UNCOMPLICATED Status: Chronic - Plan * continue current plan of care with no changes * gf advised to tell patient to stop doing drugs * no changes in plan of care * daily SBT per pulmonary team * overall poor prognosis
--- NOTE | 2018-11-19 13:23 | PDOC.PN ---
- Subjective Encounter Start Date: 11/19/18 Encounter Start Time: 13:22 Patient seen and examined - Objective Resuscitation Status - Order Detail: 11/13/18 21:47 Resuscitation Status Routine Resuscitation Status: FULL: Full Resuscitation Vital Signs & Weight: Vital Signs (12 hours) Temp Pulse Resp BP 11/19/18 12:00 99.4 F 27 H 11/19/18 11:41 93 117/79 11/19/18 10:00 30 H 11/19/18 09:58 121/92 H 11/19/18 08:00 99.9 F H 20 11/19/18 06:08 91 91/65 11/19/18 06:00 21 H 11/19/18 04:00 99.7 F H 21 H 11/19/18 02:27 90 101/76 11/19/18 02:00 26 H Weight Admit Weight 292 lb Weight 296 lb 1.293 oz Most Recent Monitor Data Heart Rate from ECG 92 NIBP 116/84 NIBP BP-Mean 94 Respiration from ECG 26 SpO2 95 I&O: 11/18/18 11/19/18 11/20/18 06:59 06:59 06:59 Intake Total 2093.9 2130.1 150 Output Total 1710 1271 1702 Balance 383.9 859.1 -1552 Result Diagrams: 11/19/18 05:24 11/19/18 05:24 Additional Labs: Accuchecks 11/19/18 11/19/18 11/19/18 12:53 09:46 04:21 POC Glucose 242 H 202 H 216 H 11/19/18 11/18/18 11/18/18 00:24 21:11 17:12 POC Glucose 235 H 213 H 213 H 11/18/18 14:13 POC Glucose 246 H Phys Exam - Physical Examination Constitutional: NAD intubated NG tube in place Neck: no nodes, no JVD coarse breath sounds no respiratory distress Cardiovascular: no significant murmur tachycardia Gastrointestinal: soft, non-tender, no distention, positive bowel sounds Musculoskeletal: pulses present, edema present Dx/Plan (1) Acute respiratory failure Code(s): J96.00 - ACUTE RESPIRATORY FAILURE, UNSP W HYPOXIA OR HYPERCAPNIA Status: Acute (2) Elevated troponin Code(s): R74.8 - ABNORMAL LEVELS OF OTHER SERUM ENZYMES Status: Acute (3) Diabetes type 2, controlled Code(s): E11.9 - TYPE 2 DIABETES MELLITUS WITHOUT COMPLICATIONS Status: Chronic Qualifiers: Diabetes mellitus terminal system operator insulin use: without terminal system operator use Diabetes mellitus complication status: without complication Qualified Code(s): E11.9 - Type 2 diabetes mellitus without complications (4) Hypertension Code(s): I10 - ESSENTIAL (PRIMARY) HYPERTENSION Status: Chronic Qualifiers: Hypertension type: essential hypertension Qualified Code(s): I10 - Essential (primary) hypertension (5) Obesity (BMI 30.0-34.9) Code(s): E66.9 - OBESITY, UNSPECIFIED Status: Chronic (6) Polysubstance abuse Code(s): F19.10 - OTHER PSYCHOACTIVE SUBSTANCE ABUSE, UNCOMPLICATED Status: Chronic - Plan * cont current plan of care * no changes * poor overall prognosis * SBT per pulmonary
[2018-11-19] MEDS: Spironolactone 25 MG TAB PO SCH (17:20)
[2018-11-19] MEDS: Lorazepam 2 MG/ML VIAL SLOW IVP PRN (21:30)
[2018-11-19] MEDS: Insulin Glargine 20 UNITS in Pre-Filled Syringe 1 EACH SC SCH (21:48)
[2018-11-20] MEDS: fentaNYL Citrate/PF 2,000 MCG in Sodium Chloride 0.9% 60 ML IV SCH (00:22)
[2018-11-20] MEDS: Propofol 1,000 MG/100 ML VIAL IV PRN ×4 (00:46→20:32)
[2018-11-20] MEDS: Lorazepam 2 MG/ML VIAL SLOW IVP PRN (01:28)
[2018-11-20 04:28] LABS: #Basophils 0.1 thou/uL (0.0-0.2); #Eosinphils 0.2 thou/uL (0.0-0.7); #Lymphocytes 1.4 thou/uL (1.20-3.40); #Monocytes 1.5 thou/uL (0.11-0.59); #Neutrophils 8.8 thou/uL (1.40-6.50); %Basophils 0.8 % (0.0-1.0); %Eosinophils 1.9 % (0.0-10.0); %Lymphocytes 11.8 % (21.0-51.0); %Monocytes 12.5 % (0.0-10.0); %Neutrophils 73.1 % (42.0-75.0); Hemoglobin 12.2 g/dL (14.0-18.0); Mean Corpuscular Hemoglobin 28.6 pg (27.0-31.0); Mean Corpuscular Volume 89.4 fL (78.0-98.0); Mean Platelet Volume 8.3 fL (7.4-10.4); Platelet Count 204 thou/uL (130-400); RBC Distribution Width 14.3 % (11.5-14.5); Red Blood Cell (RBC) Count 4.27 mill/uL (4.70-6.10); White Blood Cell (WBC) Count 12.1 thou/uL (4.8-10.8)
[2018-11-20] MEDS: HumaLOG 300 UNITS/3 ML VIAL SC PRN ×4 (04:37→21:18)
[2018-11-20 04:47] LABS: Anion Gap 14 mmol/L (10-20); BUN (Urea Nitrogen) 32 mg/dL (8.9-20.6); Calc. Creatinine Clearance 132 mL/min (70-130); Calcium 8.8 mg/dL (7.8-10.44); Carbon Dioxide 26 mmol/L (22-29); Chloride 106 mmol/L (98-107); Estimated GFR-MDRD 73; Glucose 286 mg/dL (70-105); Potassium 4.1 mmol/L (3.5-5.1); Sodium 142 mmol/L (136-145)
--- NOTE | 2018-11-20 09:08 | RAD ---
FRONTAL RADIOGRAPH CHEST PORTABLE UPRIGHT: DATE: 11/20/2018. COMPARISON: 11/17/2018. HISTORY: Ventilated patient. FINDINGS: Endotracheal tube appears to terminate in the region of the clavicular heads, detail limited secondar y to body habitus and portable technique. Nasogastric tube appears grossly unchanged. Stable single -lead transvenous pacing device. Increased pleural and parenchymal opacity noted in both lung bases obscuring the hemidiaphragms and blunting the costophrenic angles, left greater than right. IMPRESSION: Persistent dense pleural and parenchymal opacity in both lung bases suggesting pulmonary edema and/or multifocal infectious pneumonitis. Followup to resolution advised. POS: [facility]
--- NOTE | 2018-11-20 09:36 | PRG ---
DATE OF SERVICE: 11/20/2018 SUBJECTIVE: Saeid Best remains intubated on the vent. He has a large amount of secretions coming out of his endotracheal tube. He has got Streptococcus in his sputum. He is clearly encephalopathic. He is somewhat better. OBJECTIVE: VITAL SIGNS: Blood pressure 102/58, pulse 58, respiratory rate 24. Afebrile. I's and O's 2093 out, 171 out. CHEST: Bilateral crackles. CARDIAC: Normal S1 and S2. No gallops. ABDOMEN: No masses. LABORATORY DATA: BUN and creatinine are normal. Glucose normal. White count 65737, hemoglobin and hematocrit 12 and 38. Chest x-ray shows bilateral pulmonary edema. IMPRESSION: 1. Respiratory failure, aspiration pneumonia. 2. Encephalopathy. 3. Automatic implantable cardioverter-defibrillator. 4. Seizure disorder. 5. Congestive heart failure. PLAN: Bronchoscopy is being performed otherwise, because of large volume of secretions. Minimize sedation, try and wean. Possible one half hour critical time excluding the bronchoscopy. Job ID: [id number]
[2018-11-20] MEDS: Insulin Glargine 10 UNITS in Pre-Filled Syringe 1 EACH SC SCH (09:59)
[2018-11-20] MEDS: levETIRAcetam In NaCl (Iso-Os) 1,000 MG in Premix Bag 1 BAG IVPB SCH ×2 (09:59→20:30)
[2018-11-20] MEDS: Furosemide 40 MG/4 ML VIAL SLOW IVP SCH (09:59)
[2018-11-20] MEDS: Famotidine/PF 20 mg/2ml Vial SLOW IVP SCH ×2 (09:59→20:31)
[2018-11-20] MEDS: risperiDONE 0.25 MG TAB PO SCH ×2 (10:00→20:47)
[2018-11-20] MEDS: Carvedilol 6.25 MG TAB PO SCH (10:00)
[2018-11-20] MEDS: Spironolactone 25 MG TAB PO SCH ×2 (10:00→17:41)
[2018-11-20] MEDS: Cefepime 1 GM in Sodium Chloride 0.9% 100 ML IVPB SCH (10:14)
--- NOTE | 2018-11-20 10:43 | PDOC.PN ---
- Subjective Encounter Start Date: 11/20/18 Encounter Start Time: 10:41 Patient seen and examined - Objective Resuscitation Status - Order Detail: 11/13/18 21:47 Resuscitation Status Routine Resuscitation Status: FULL: Full Resuscitation Vital Signs & Weight: Vital Signs (12 hours) Temp Pulse Resp BP Pulse Ox 11/20/18 10:00 102/68 11/20/18 06:44 85 102/68 11/20/18 06:00 24 H 11/20/18 04:00 99.9 F H 29 H 11/20/18 02:31 86 104/65 11/20/18 02:00 29 H 11/20/18 00:40 84 31 H 95 11/20/18 00:00 99.9 F H 35 H Weight Admit Weight 292 lb Weight 296 lb 11.875 oz Most Recent Monitor Data Heart Rate from ECG 86 NIBP 101/67 NIBP BP-Mean 78 Respiration from ECG 19 SpO2 96 I&O: 11/19/18 11/20/18 11/21/18 06:59 06:59 06:59 Intake Total 2130.1 2085.3 Output Total 1271 3427 Balance 859.1 -1341.7 Result Diagrams: 11/20/18 04:04 11/20/18 04:04 Additional Labs: Accuchecks 11/20/18 11/19/18 11/19/18 03:52 20:04 17:45 POC Glucose 247 H 272 H 236 H 11/19/18 12:53 POC Glucose 242 H Phys Exam - Physical Examination Constitutional: NAD HEENT: PERRLA +intubated +NG tube Neck: no nodes, no JVD, supple Respiratory: no rales, no rhonchi coarse breath sounds Cardiovascular: RRR, no significant murmur, no rub Gastrointestinal: soft, non-tender, no distention, positive bowel sounds rotund Musculoskeletal: pulses present, edema present (trace) Dx/Plan (1) Acute respiratory failure Code(s): J96.00 - ACUTE RESPIRATORY FAILURE, UNSP W HYPOXIA OR HYPERCAPNIA Status: Acute (2) Elevated troponin Code(s): R74.8 - ABNORMAL LEVELS OF OTHER SERUM ENZYMES Status: Acute (3) Diabetes type 2, controlled Code(s): E11.9 - TYPE 2 DIABETES MELLITUS WITHOUT COMPLICATIONS Status: Chronic Qualifiers: Diabetes mellitus correction insulin use: without medical terminologist use Diabetes mellitus complication status: without complication Qualified Code(s): E11.9 - Type 2 diabetes mellitus without complications (4) Hypertension Code(s): I10 - ESSENTIAL (PRIMARY) HYPERTENSION Status: Chronic Qualifiers: Hypertension type: essential hypertension Qualified Code(s): I10 - Essential (primary) hypertension (5) Obesity (BMI 30.0-34.9) Code(s): E66.9 - OBESITY, UNSPECIFIED Status: Chronic (6) Polysubstance abuse Code(s): F19.10 - OTHER PSYCHOACTIVE SUBSTANCE ABUSE, UNCOMPLICATED Status: Chronic - Plan * no changes in plan of care * continue weaning trials * poor cardiac function overall with poor prognosis * no family at bedside
[2018-11-20] MEDS: Insulin Glargine 20 UNITS in Pre-Filled Syringe 1 EACH SC SCH (20:31)
[2018-11-20] MEDS: Acetaminophen 650 MG Suppository PR PRN (23:44)
[2018-11-21] MEDS ORDERED: Sodium Chloride 0.9% 250 ML 250 ML IVPB SCH (01:15)
[2018-11-21] MEDS: Carvedilol 6.25 MG TAB PO SCH ×3 (01:44→22:32)
[2018-11-21] MEDS ORDERED: Sodium Chloride 0.9% 250 ML IVPB SCH (02:45)
[2018-11-21] MEDS: Acetaminophen 650 MG Suppository PR PRN (04:33)
[2018-11-21 05:19] LABS: #Basophils 0.1 thou/uL (0.0-0.2); #Eosinphils 0.1 thou/uL (0.0-0.7); #Lymphocytes 1.6 thou/uL (1.20-3.40); #Monocytes 1.6 thou/uL (0.11-0.59); #Neutrophils 8.3 thou/uL (1.40-6.50); %Basophils 0.7 % (0.0-1.0); %Eosinophils 0.8 % (0.0-10.0); %Lymphocytes 13.4 % (21.0-51.0); %Monocytes 13.7 % (0.0-10.0); %Neutrophils 71.4 % (42.0-75.0); Hemoglobin 13.3 g/dL (14.0-18.0); Mean Corpuscular HGB CONC 31.9 g/dL (32.0-36.0); Mean Corpuscular Hemoglobin 28.6 pg (27.0-31.0); Mean Corpuscular Volume 89.6 fL (78.0-98.0); Mean Platelet Volume 8.5 fL (7.4-10.4); Platelet Count 208 thou/uL (130-400); RBC Distribution Width 14.4 % (11.5-14.5); Red Blood Cell (RBC) Count 4.66 mill/uL (4.70-6.10); White Blood Cell (WBC) Count 11.6 thou/uL (4.8-10.8)
[2018-11-21 05:32] LABS: Anion Gap 15 mmol/L (10-20); BUN (Urea Nitrogen) 39 mg/dL (8.9-20.6); Calc. Creatinine Clearance 97 mL/min (70-130); Carbon Dioxide 25 mmol/L (22-29); Chloride 107 mmol/L (98-107); Estimated GFR-MDRD 51; Glucose 265 mg/dL (70-105); Potassium 4.9 mmol/L (3.5-5.1); Sodium 142 mmol/L (136-145)
--- NOTE | 2018-11-21 07:12 | OP ---
DATE OF PROCEDURE: 11/20/2018 PROCEDURES PERFORMED: Bronchoscopy and lavage. INDICATIONS FOR PROCEDURE: Retained secretions, copious amounts; aspiration pneumonia. POSTBRONCHOSCOPY DIAGNOSES: Retained secretions, copious amounts; aspiration pneumonia. DESCRIPTION OF PROCEDURE: After informed consent, the flexible bronchoscope was passed while the patient was sedated on Diprivan and fentanyl. Distal trachea was visualized, which has a minimal amount of purulent secretions occluding the distal trachea. This was suction lavaged. The right lung was inspected initially; right upper, right middle, and right lower lobes. Diffuse edema was seen and erythema. No endobronchial obstruction was seen. Pale amount of secretion was seen, yellowish, which was suctioned lavaged until clear. The left lung was inspected out. It also had diffuse edema and erythema. Minimal secretions, which were also suction lavaged until clear. The patient tolerated the procedure well. Washings were sent for Gram stain and MIXOLOGIST. Job ID: [id number]
[2018-11-21] MEDS ORDERED: Acetaminophen 1,000 MG in Premix Bag 1 BAG IVPB PRN (07:20)
[2018-11-21 07:34] LABS: ALV-art Gradient 141.975 (0-20); Actual Bicarbonate (HCO3a) 24.4 mEq/L (22-28); Base Excess (BEa) 0.1 mEq/L (-2.0 to +3.0); CO2 Tension 38.5 mmHg (35.0-45.0); Calcium, Ionized 1.19 mmol/L (1.12-1.30); Carboxyhemoglobin (COHb) 1.2 gm% (0.0-3.0); Hemoglobin (Hb) 13.2 g/dL (14.0-18.0); O2 Tension (PaO2) 95.1 mmHg (80.0-100.0); Potassium - ABG Lab 5.06 mmol/L (3.70-5.30); Puncture Site LRA; pH, Arterial 7.42 (7.35-7.45)
[2018-11-21] MEDS: levETIRAcetam In NaCl (Iso-Os) 1,000 MG in Premix Bag 1 BAG IVPB SCH ×2 (08:13→22:33)
[2018-11-21] MEDS: Propofol 1,000 MG/100 ML VIAL IV PRN ×3 (08:13→22:53)
[2018-11-21] MEDS: Insulin Glargine 10 UNITS in Pre-Filled Syringe 1 EACH SC SCH (08:14)
--- NOTE | 2018-11-21 08:48 | RAD ---
PORTABLE SEMIUPRIGHT FRONTAL CHEST RADIOGRAPH: DATE: 11/21/2018. COMPARISON: 11/20/2018. HISTORY: Ventilated patient. FINDINGS: An endotracheal tube and nasogastric tube in proper position. Stable single-lead transvenous pacing device. No pneumothorax is seen. There is hazy airspace disease in both lung bases with associated bilateral pleural effusions, stable. IMPRESSION: Stable appearance of the chest. POS: OFF
[2018-11-21] MEDS: Famotidine/PF 20 mg/2ml Vial SLOW IVP SCH ×2 (09:06→22:32)
[2018-11-21] MEDS: risperiDONE 0.25 MG TAB PO SCH ×2 (09:06→22:52)
[2018-11-21] MEDS: HumaLOG 300 UNITS/3 ML VIAL SC PRN ×4 (09:16→22:35)
[2018-11-21] MEDS ORDERED: Albumin 25% 25 GM/100 ML BOT IVPB SCH (09:19)
[2018-11-21] MEDS: Spironolactone 25 MG TAB PO SCH ×2 (10:29→18:46)
[2018-11-21] MEDS: Linezolid 600 MG in Premix Bag 1 BAG IVPB SCH ×2 (10:42→22:33)
[2018-11-21] MEDS: Cefepime 1 GM in Sodium Chloride 0.9% 100 ML IVPB SCH ×2 (10:43)
[2018-11-21] MEDS: Furosemide 40 MG/4 ML VIAL SLOW IVP SCH (11:09)
[2018-11-21] MEDS: Lorazepam 2 MG/ML VIAL SLOW IVP PRN ×2 (12:56→16:34)
[2018-11-21] MEDS: fentaNYL Citrate/PF 2,000 MCG in Sodium Chloride 0.9% 60 ML IV SCH (14:32)
--- NOTE | 2018-11-21 15:16 | PRG ---
DATE OF SERVICE: 11/21/2018 SUBJECTIVE: Saeid Best remains intubated and remains very agitated. X-ray showed bilateral pleural effusion. His EF is only 20%. His respective temperature last night of 101.3. OBJECTIVE: VITAL SIGNS: His blood pressure has decreased to 90/80, pulse 100, flutter, respirations 20, and temperature 100.2 this morning. CHEST: Decreased breath sounds. No wheezing. CARDIAC: Normal S1 and S2. No gallops. ABDOMEN: Soft. NEUROLOGIC: Sedated. LABORATORY DATA: PO2 is 95, pCO2 is 38, pH 7.42, rate of 40, 10 pressure support, 5 of PEEP. White count 9000. IMPRESSION: 1. Possibly Staph pneumonia. 2. Congestive heart failure with flutter. 3. Encephalopathy. 4. Seizure disorder. PLAN: 1. Vancomycin has been added to his present regime. 2. Continue supportive care and PT. 3. He is unweanable at this stage. One-half hour of critical time. Job ID: [id number]
--- NOTE | 2018-11-21 17:14 | EKG ---
Test Reason : Blood Pressure : / mmHG Vent. Rate : 115 BPM Atrial Rate : 308 BPM P-R Int : 000 ms QRS Dur : 090 ms QT Int : 300 ms P-R-T Axes : 229 031 074 degrees QTc Int : 415 ms Atrial flutter with variable A-V block Cannot rule out Inferior infarct (cited on or before 12-NOV-2007) Anterior infarct (cited on or before 23-MAR-2014) Abnormal ECG When compared with ECG of 08-SEP-2018 09:55, Atrial flutter has replaced Sinus rhythm Serial changes of Inferior infarct Present Confirmed by DR. Sylvia MCCRAY (3) on 11/21/2018 5:14:04 PM Referred By: ANURAG Confirmed By:DR. Sylvia MCCRAY
--- NOTE | 2018-11-21 18:12 | PDOC.PN ---
- Subjective Encounter Start Date: 11/21/18 Encounter Start Time: 09:10 Mr. Best was seen today in follow-up of acute respiratory failure, and seizure. He remains intubated. - Objective Resuscitation Status - Order Detail: 11/13/18 21:47 Resuscitation Status Routine Resuscitation Status: FULL: Full Resuscitation MAR Reviewed: Yes Vital Signs & Weight: Vital Signs (12 hours) Temp Pulse Resp BP Pulse Ox 11/21/18 16:00 99.7 F H 26 H 11/21/18 15:00 99.7 F H 11/21/18 14:58 100 92/71 11/21/18 14:00 33 H 11/21/18 12:29 84 111/89 11/21/18 12:27 87 21 H 94 L 11/21/18 12:00 24 H 11/21/18 11:00 100.6 F H 11/21/18 10:03 93 99/69 11/21/18 10:00 23 H 11/21/18 08:00 101.6 F H 30 H 96 11/21/18 06:55 113 H 101/75 11/21/18 06:54 92 36 H 97 Weight Admit Weight 292 lb Weight 296 lb 3.2 oz Most Recent Monitor Data Heart Rate from ECG 101 NIBP 98/73 NIBP BP-Mean 81 Respiration from ECG 20 SpO2 96 I&O: 11/20/18 11/21/18 11/22/18 06:59 06:59 06:59 Intake Total 2085.3 2179 1521.6 Output Total 3427 1880 1280 Balance -1341.7 299 241.6 Result Diagrams: 11/21/18 04:01 11/21/18 04:01 Additional Labs: Accuchecks 11/21/18 11/21/18 11/21/18 16:13 12:25 09:16 POC Glucose 295 H 298 H 295 H 11/21/18 11/20/18 01:01 21:18 POC Glucose 232 H 243 H Phys Exam - Physical Examination HEENT: PERRLA Respiratory: no wheezing, no rales, no rhonchi, clear to auscultation bilateral Cardiovascular: RRR, no significant murmur, no rub Gastrointestinal: soft, non-tender, no distention, positive bowel sounds Musculoskeletal: no edema, pulses present Dx/Plan (1) Seizure Code(s): R56.9 - UNSPECIFIED CONVULSIONS Status: Acute (2) Acute respiratory failure Code(s): J96.00 - ACUTE RESPIRATORY FAILURE, UNSP W HYPOXIA OR HYPERCAPNIA Status: Acute (3) Chronic systolic heart failure, ACC/AHA stage C Code(s): I50.22 - CHRONIC SYSTOLIC (CONGESTIVE) HEART FAILURE Status: Chronic (4) Diabetes type 2, controlled Code(s): E11.9 - TYPE 2 DIABETES MELLITUS WITHOUT COMPLICATIONS Status: Chronic Qualifiers: Diabetes mellitus middle or intermediate school principal insulin use: without long-term use Diabetes mellitus complication status: without complication Qualified Code(s): E11.9 - Type 2 diabetes mellitus without complications (5) Hypertension Code(s): I10 - ESSENTIAL (PRIMARY) HYPERTENSION Status: Chronic Qualifiers: Hypertension type: essential hypertension Qualified Code(s): I10 - Essential (primary) hypertension (6) Polysubstance abuse Code(s): F19.10 - OTHER PSYCHOACTIVE SUBSTANCE ABUSE, UNCOMPLICATED Status: Chronic - Plan * Acute respiratory failure- likely due to seizure, and pneumonia. He is not yet weanable from the ventilatory * Pneumonia- he has undergone bronchoscopy, and the washings are growing Staph, sensitivities are pending. Sputum culture is positive for Strep Pneumonia. Continue Cefepime and Zyvox * Seizures- continue Keppra * DM- blood glucose is elevated- will titrate Lantus * Chronic systolic heart failure- compensated
[2018-11-21] MEDS: Scopolamine 1.5 mg/72 hour Patch TD SCH (22:32)
[2018-11-21] MEDS: Insulin Glargine 25 UNITS in Pre-Filled Syringe 1 EACH SC SCH (22:34)
[2018-11-22] MEDS: Cefepime 1 GM in Sodium Chloride 0.9% 100 ML IVPB SCH ×3 (00:36→22:51)
[2018-11-22] MEDS: HumaLOG 300 UNITS/3 ML VIAL SC PRN ×5 (02:28→22:54)
[2018-11-22] MEDS: Propofol 1,000 MG/100 ML VIAL IV PRN ×3 (03:22→17:20)
[2018-11-22 05:28] LABS: #Basophils 0.1 thou/uL (0.0-0.2); #Eosinphils 0.2 thou/uL (0.0-0.7); #Lymphocytes 1.5 thou/uL (1.20-3.40); #Monocytes 1.4 thou/uL (0.11-0.59); #Neutrophils 7.1 thou/uL (1.40-6.50); %Basophils 0.6 % (0.0-1.0); %Lymphocytes 14.6 % (21.0-51.0); %Neutrophils 68.8 % (42.0-75.0); Hemoglobin 12.7 g/dL (14.0-18.0); Mean Corpuscular HGB CONC 31.5 g/dL (32.0-36.0); Mean Corpuscular Hemoglobin 28.4 pg (27.0-31.0); Mean Corpuscular Volume 90.1 fL (78.0-98.0); Platelet Count 200 thou/uL (130-400); RBC Distribution Width 14.5 % (11.5-14.5); Red Blood Cell (RBC) Count 4.48 mill/uL (4.70-6.10); White Blood Cell (WBC) Count 10.3 thou/uL (4.8-10.8)
[2018-11-22 05:49] LABS: Anion Gap 13 mmol/L (10-20); BUN (Urea Nitrogen) 37 mg/dL (8.9-20.6); Calc. Creatinine Clearance 115 mL/min (70-130); Calcium 9.1 mg/dL (7.8-10.44); Carbon Dioxide 30 mmol/L (22-29); Chloride 105 mmol/L (98-107); Estimated GFR-MDRD 62; Glucose 237 mg/dL (70-105); Potassium 4.3 mmol/L (3.5-5.1); Sodium 144 mmol/L (136-145)
[2018-11-22 07:29] LABS: Actual Bicarbonate (HCO3a) 30.3 mEq/L (22-28); Base Excess (BEa) 4.8 mEq/L (-2.0 to +3.0); CO2 Tension 48.4 mmHg (35.0-45.0); Carboxyhemoglobin (COHb) 1.3 gm% (0.0-3.0); Hemoglobin (Hb) 13.1 g/dL (14.0-18.0); O2 Tension (PaO2) 87.6 mmHg (80.0-100.0); pH, Arterial 7.41 (7.35-7.45)
[2018-11-22 07:30] LABS: Puncture Site LRA
[2018-11-22] MEDS: Spironolactone 25 MG TAB PO SCH ×2 (08:10→17:20)
[2018-11-22] MEDS: risperiDONE 0.25 MG TAB PO SCH ×2 (08:10→22:54)
[2018-11-22] MEDS: Insulin Glargine 25 UNITS in Pre-Filled Syringe 1 EACH SC SCH ×2 (08:11→22:50)
[2018-11-22] MEDS: Famotidine/PF 20 mg/2ml Vial SLOW IVP SCH ×2 (08:11→22:50)
[2018-11-22] MEDS: levETIRAcetam In NaCl (Iso-Os) 1,000 MG in Premix Bag 1 BAG IVPB SCH ×2 (08:12→22:51)
[2018-11-22] MEDS: Carvedilol 6.25 MG TAB PO SCH ×2 (08:14→22:49)
--- NOTE | 2018-11-22 08:32 | RAD ---
CHEST 1 VIEW: Date: 11/22/18 HISTORY: Dyspnea. Follow-up. COMPARISON: 11/21/18. FINDINGS: Cardiac silhouette remains magnified, enlarged, and partially obscured by bilateral pleural fluid and bibasilar infiltrates that are similar in appearance to the prior study. Pulmonary vasculature remai ns engorged with prominent bilateral perihilar infiltrates. Mediastinum is midline. Lines and tubes a ppear unchanged in position. No evidence of pneumothorax. IMPRESSION: Pulmonary edema, pleural fluid, and other findings appear stable. POS: [facility]
[2018-11-22] MEDS ORDERED: Vancomycin HCl 1 GM in Premix Bag 1 BAG IVPB SCH (09:00)
[2018-11-22] MEDS: Furosemide 40 MG/4 ML VIAL SLOW IVP SCH (10:16)
[2018-11-22] MEDS: Linezolid 600 MG in Premix Bag 1 BAG IVPB SCH ×2 (10:16→22:51)
[2018-11-22] MEDS: Enoxaparin Sodium 40 MG/0.4 ML SYRINGE SC SCH (10:16)
--- NOTE | 2018-11-22 12:00 | PRG ---
DATE OF SERVICE: 11/22/2018 SUBJECTIVE: This morning remains intubated on the vent, fentanyl and Diprivan. Easily agitated. OBJECTIVE: VITAL SIGNS: Blood pressure is 100/75, pulse 101, sats 90% on _40% vent rate 10 . His urine output has been good 2987in, 2370 out. CHEST: Decreased breath sounds. Bilateral rhonchi, crackles. CARDIAC: Normal S1, S2. No gallops. ABDOMEN: No masses. LABORATORY STUDIES: Creatinine 1.46, glucose 220. White count 10,000, H and H 12 and 40. PO2 is 87, pCO2 48, pH 7.41, rate of 10 and 40%, 5 of PEEP. Bronch washings are growing MRSA. IMPRESSION: 1. MRSA bronchopneumonia. 2. Seizure disorder. 3. Congestive cardiomyopathy. 4. Supraventricular tachycardia. 5. Major encephalopathy. He is on Aldactone, Lasix. Consider to be on Zyvox for his MRSA. May need to continue vancomycin at this stage, still not weanable. Day #9 on the vent. Discuss with family when they arrive. One half hour critical time. Job ID: [id number] [facility]
--- NOTE | 2018-11-22 13:18 | PDOC.PN ---
- Subjective Encounter Start Date: 11/22/18 Encounter Start Time: 13:17 Mr. Best was seen today in follow-up of respiratory failure and seizures. He is intubated. - Objective Resuscitation Status - Order Detail: 11/13/18 21:47 Resuscitation Status Routine Resuscitation Status: FULL: Full Resuscitation MAR Reviewed: Yes Vital Signs & Weight: Vital Signs (12 hours) Temp Pulse Resp BP Pulse Ox 11/22/18 12:39 100 116/69 11/22/18 12:38 100 24 H 99 11/22/18 12:00 99.9 F H 36 H 11/22/18 10:27 123 H 154/106 H 11/22/18 10:00 38 H 11/22/18 08:14 105/74 11/22/18 08:00 99.9 F H 24 H 11/22/18 06:52 93 102/78 11/22/18 06:50 92 21 H 97 11/22/18 06:00 27 H 11/22/18 04:00 99.0 F 27 H 11/22/18 02:56 96 116/83 11/22/18 02:00 27 H Weight Admit Weight 292 lb Weight 4 lb 2.315 oz Most Recent Monitor Data Heart Rate from ECG 108 NIBP 128/88 NIBP BP-Mean 101 Respiration from ECG 26 SpO2 99 I&O: 11/21/18 11/22/18 11/23/18 06:59 06:59 06:59 Intake Total 2179 2987.0 120 Output Total 1880 2370 1000 Balance 299 617.0 -880 Result Diagrams: 11/22/18 05:19 11/22/18 05:19 Additional Labs: Accuchecks 11/22/18 11/22/18 11/22/18 08:45 04:38 00:14 POC Glucose 211 H 220 H 218 H 11/21/18 11/21/18 20:43 16:13 POC Glucose 203 H 295 H Phys Exam - Physical Examination HEENT: PERRLA Respiratory: no wheezing + coarse breath sounds bilaterally Cardiovascular: RRR, no significant murmur, no rub Gastrointestinal: soft, non-tender, no distention, positive bowel sounds Musculoskeletal: pulses present, edema present + edema, and erythema of the right upper extremity + pulses are present Dx/Plan (1) Seizure Code(s): R56.9 - UNSPECIFIED CONVULSIONS Status: Acute (2) Acute respiratory failure Code(s): J96.00 - ACUTE RESPIRATORY FAILURE, UNSP W HYPOXIA OR HYPERCAPNIA Status: Acute (3) Chronic systolic heart failure, ACC/AHA stage C Code(s): I50.22 - CHRONIC SYSTOLIC (CONGESTIVE) HEART FAILURE Status: Chronic (4) Diabetes type 2, controlled Code(s): E11.9 - TYPE 2 DIABETES MELLITUS WITHOUT COMPLICATIONS Status: Chronic Qualifiers: Diabetes mellitus penitentiary insulin use: without penitentiary use Diabetes mellitus complication status: without complication Qualified Code(s): E11.9 - Type 2 diabetes mellitus without complications (5) Hypertension Code(s): I10 - ESSENTIAL (PRIMARY) HYPERTENSION Status: Chronic Qualifiers: Hypertension type: essential hypertension Qualified Code(s): I10 - Essential (primary) hypertension (6) Polysubstance abuse Code(s): F19.10 - OTHER PSYCHOACTIVE SUBSTANCE ABUSE, UNCOMPLICATED Status: Chronic - Plan * Seizure- none reported, stable on Keppra * Acute respiratory failure- initially from seizure, followed by pneumonia- continue Cefepime and Zyvox * Rigth upper extremity swelling- will check a venous ultrasound * DM- blood glucose continue to be elevated- will continue to titrate insulin periodically.
[2018-11-22] MEDS: Haloperidol Lactate 5 MG/ML VIAL SLOW IVP PRN ×2 (15:07→22:51)
--- NOTE | 2018-11-22 15:43 | ULT ---
VENOUS DUPLEX SONOGRAM RIGHT UPPER EXTREMITY: History: Right arm pain and edema. FINDINGS: Good color and spectral doppler flow within the internal jugular and subclavian veins, the axillaries , brachial, and basilic veins. From the mid upper arm to the wrist, the cephalic vein contains thromb us and lacks compressibility. IMPRESSION: 1. Long segment thrombosis of the cephalic vein, a superficial venous structure. 2. No evidence of deep venous thrombus of the right upper extremity. POS: [facility]
[2018-11-22] MEDS: Acetaminophen 500 MG TAB PO PRN (17:20)
[2018-11-22] MEDS: fentaNYL Citrate/PF 2,000 MCG in Sodium Chloride 0.9% 60 ML IV SCH (17:27)
[2018-11-23] MEDS: Lorazepam 2 MG/ML VIAL SLOW IVP PRN (01:30)
[2018-11-23] MEDS: Propofol 1,000 MG/100 ML VIAL IV PRN ×4 (01:30→23:14)
[2018-11-23] MEDS: HumaLOG 300 UNITS/3 ML VIAL SC PRN ×2 (04:45→12:51)
[2018-11-23] MEDS: Acetaminophen 500 MG TAB PO PRN ×3 (04:45→23:12)
[2018-11-23 06:06] LABS: Anion Gap 17 mmol/L (10-20); BUN (Urea Nitrogen) 34 mg/dL (8.9-20.6); Calc. Creatinine Clearance 2 mL/min (70-130); Carbon Dioxide 24 mmol/L (22-29); Chloride 108 mmol/L (98-107); Estimated GFR-MDRD 82; Glucose 254 mg/dL (70-105); Potassium 5.5 mmol/L (3.5-5.1); Sodium 143 mmol/L (136-145)
[2018-11-23 06:09] LABS: #Eosinphils 0.2 thou/uL (0.0-0.7); #Lymphocytes 1.8 thou/uL (1.20-3.40); #Monocytes 2.3 thou/uL (0.11-0.59); #Neutrophils 15.2 thou/uL (1.40-6.50); %Basophils 0.2 % (0.0-1.0); %Eosinophils 0.9 % (0.0-10.0); %Lymphocytes 9.4 % (21.0-51.0); %Monocytes 11.8 % (0.0-10.0); %Neutrophils 77.7 % (42.0-75.0); Hemoglobin 12.2 g/dL (14.0-18.0); Mean Corpuscular Hemoglobin 27.8 pg (27.0-31.0); Mean Corpuscular Volume 89.7 fL (78.0-98.0); Mean Platelet Volume 9.1 fL (7.4-10.4); Platelet Count 153 thou/uL (130-400); RBC Distribution Width 14.3 % (11.5-14.5); Red Blood Cell (RBC) Count 4.38 mill/uL (4.70-6.10); White Blood Cell (WBC) Count 19.5 thou/uL (4.8-10.8)
[2018-11-23 07:03] LABS: Actual Bicarbonate (HCO3a) 29.3 mEq/L (22-28); Base Excess (BEa) 4.3 mEq/L (-2.0 to +3.0); CO2 Tension 45.4 mmHg (35.0-45.0); Carboxyhemoglobin (COHb) 1.6 gm% (0.0-3.0); Hemoglobin (Hb) 12.3 g/dL (14.0-18.0); O2 Tension (PaO2) 71.2 mmHg (80.0-100.0); Potassium - ABG Lab 3.89 mmol/L (3.70-5.30); pH, Arterial 7.43 (7.35-7.45)
[2018-11-23 07:05] LABS: Puncture Site LRA
--- NOTE | 2018-11-23 08:44 | PRG ---
DATE OF SERVICE: 11/23/2018 SUBJECTIVE: Saeid Best remains in the ICU, intubated on the vent, still agitated. OBJECTIVE: VITAL SIGNS: His blood pressure is 104/70, pulse is 80 and atrial flutter, respiratory rate 20, sats 98%. His I's and O's have been better, 2224 in, 2340 out. CHEST: Decreased breath sounds without any wheezing. CARDIAC: Normal S1, S2. No gallops. ABDOMEN: No masses. LABORATORY DATA: His lytes are normal. Creatinine is 1.14, BUN is 34, glucose 220. White count 9000, H and H 12 and 39, platelet count 150. IMPRESSION: 1. Status post seizure activity, on Keppra. 2. MRSA bronchopneumonia, on Zyvox. 3. Major encephalopathy. 4. End-stage cardiomyopathy. 5. Substance abuse. PLAN: We are unable to contact any family members. clerical office worker including palliative care, is still trying to contact family members. Will try to minimize his sedation if possible, he may need_ trach and PEG. Once again, we will try to contact family members if possible. One-half hour of critical time. Job ID: [id number] [id number]
[2018-11-23] MEDS: Famotidine/PF 20 mg/2ml Vial SLOW IVP SCH ×2 (09:06→23:10)
[2018-11-23] MEDS: Enoxaparin Sodium 40 MG/0.4 ML SYRINGE SC SCH (09:06)
[2018-11-23] MEDS: Furosemide 40 MG/4 ML VIAL SLOW IVP SCH (09:06)
[2018-11-23] MEDS: Spironolactone 25 MG TAB PO SCH ×2 (09:06→17:01)
[2018-11-23] MEDS: Insulin Glargine 25 UNITS in Pre-Filled Syringe 1 EACH SC SCH ×2 (09:06→23:13)
[2018-11-23] MEDS: Haloperidol Lactate 5 MG/ML VIAL SLOW IVP PRN ×2 (09:47→14:55)
[2018-11-23] MEDS: levETIRAcetam In NaCl (Iso-Os) 1,000 MG in Premix Bag 1 BAG IVPB SCH ×2 (09:49→23:13)
[2018-11-23] MEDS: Cefepime 1 GM in Sodium Chloride 0.9% 100 ML IVPB SCH ×2 (09:57→23:09)
[2018-11-23] MEDS: Carvedilol 6.25 MG TAB PO SCH ×2 (09:57→23:12)
[2018-11-23] MEDS ORDERED: risperiDONE 0.25 MG TAB PO SCH (10:15)
[2018-11-23] MEDS: risperiDONE 0.25 MG TAB PO SCH ×3 (10:15→23:10)
[2018-11-23] MEDS: Linezolid 600 MG in Premix Bag 1 BAG IVPB SCH ×2 (10:22→23:12)
--- NOTE | 2018-11-23 16:36 | PDOC.PN ---
- Subjective Encounter Start Date: 11/23/18 Encounter Start Time: 13:00 Mr. Best was seen today in follow-up of acute respiratory failure and seizure. He is remains intubated, with no significant change. - Objective Resuscitation Status - Order Detail: 11/13/18 21:47 Resuscitation Status Routine Resuscitation Status: FULL: Full Resuscitation MAR Reviewed: Yes Vital Signs & Weight: Vital Signs (12 hours) Temp Pulse Resp BP Pulse Ox 11/23/18 14:02 85 102/67 11/23/18 14:00 20 11/23/18 12:57 94 108/76 11/23/18 12:56 87 35 H 95 11/23/18 12:00 100.0 F H 21 H 11/23/18 10:48 93 118/73 11/23/18 10:00 26 H 11/23/18 09:57 111/73 11/23/18 08:00 26 H 11/23/18 07:00 98.7 F 11/23/18 06:45 89 111/73 11/23/18 06:44 89 25 H 96 11/23/18 06:00 27 H Weight Admit Weight 292 lb Weight 294 lb 8.601 oz Most Recent Monitor Data Heart Rate from ECG 89 NIBP 112/68 NIBP BP-Mean 82 Respiration from ECG 32 SpO2 99 I&O: 11/22/18 11/23/18 11/24/18 06:59 06:59 06:59 Intake Total 2987.0 2224.3 388.5 Output Total 2370 2340 1325 Balance 617.0 -115.7 -936.5 Result Diagrams: 11/23/18 05:28 11/23/18 05:28 Additional Labs: Accuchecks 11/23/18 11/23/18 11/23/18 12:22 07:19 03:01 POC Glucose 254 H 220 H 237 H 11/22/18 11/22/18 11/22/18 21:42 17:25 11:59 POC Glucose 191 H 148 H 196 H Phys Exam - Physical Examination HEENT: PERRLA Respiratory: no rales, no rhonchi, clear to auscultation bilateral + coarse breath sounds Cardiovascular: RRR, no significant murmur, no rub Gastrointestinal: soft, non-tender, no distention, positive bowel sounds Musculoskeletal: no edema, pulses present Dx/Plan (1) Seizure Code(s): R56.9 - UNSPECIFIED CONVULSIONS Status: Acute (2) Acute respiratory failure Code(s): J96.00 - ACUTE RESPIRATORY FAILURE, UNSP W HYPOXIA OR HYPERCAPNIA Status: Acute (3) Chronic systolic heart failure, ACC/AHA stage C Code(s): I50.22 - CHRONIC SYSTOLIC (CONGESTIVE) HEART FAILURE Status: Chronic (4) Diabetes type 2, controlled Code(s): E11.9 - TYPE 2 DIABETES MELLITUS WITHOUT COMPLICATIONS Status: Chronic Qualifiers: Diabetes mellitus fci insulin use: without predatory animal exterminator use Diabetes mellitus complication status: without complication Qualified Code(s): E11.9 - Type 2 diabetes mellitus without complications (5) Hypertension Code(s): I10 - ESSENTIAL (PRIMARY) HYPERTENSION Status: Chronic Qualifiers: Hypertension type: essential hypertension Qualified Code(s): I10 - Essential (primary) hypertension (6) Polysubstance abuse Code(s): F19.10 - OTHER PSYCHOACTIVE SUBSTANCE ABUSE, UNCOMPLICATED Status: Chronic - Plan * Seizure- controlled on Keppra * Acute respiratory failure- he is currently not weanable- trach and PEG and being contemplated- in the process of locating family . * HTN- blood pressure is stable * DM- blood glucose is better
[2018-11-23] MEDS: fentaNYL Citrate/PF 2,000 MCG in Sodium Chloride 0.9% 60 ML IV SCH (20:53)
[2018-11-24] MEDS: Haloperidol Lactate 5 MG/ML VIAL SLOW IVP PRN (01:34)
[2018-11-24 05:24] LABS: Anion Gap 17 mmol/L (10-20); BUN (Urea Nitrogen) 29 mg/dL (8.9-20.6); Calc. Creatinine Clearance 158 mL/min (70-130); Calcium 8.8 mg/dL (7.8-10.44); Carbon Dioxide 25 mmol/L (22-29); Chloride 106 mmol/L (98-107); Estimated GFR-MDRD 90; Glucose 159 mg/dL (70-105); Potassium 4.2 mmol/L (3.5-5.1); Sodium 144 mmol/L (136-145)
[2018-11-24 05:37] LABS: #Eosinphils 0.2 thou/uL (0.0-0.7); #Lymphocytes 1.9 thou/uL (1.20-3.40); #Monocytes 1.9 thou/uL (0.11-0.59); #Neutrophils 14.9 thou/uL (1.40-6.50); %Basophils 0.1 % (0.0-1.0); %Eosinophils 1.3 % (0.0-10.0); %Lymphocytes 9.9 % (21.0-51.0); %Neutrophils 78.7 % (42.0-75.0); Hemoglobin 11.5 g/dL (14.0-18.0); Mean Corpuscular HGB CONC 32.2 g/dL (32.0-36.0); Mean Platelet Volume 9.3 fL (7.4-10.4); Platelet Count 159 thou/uL (130-400); RBC Distribution Width 14.3 % (11.5-14.5); Red Blood Cell (RBC) Count 3.98 mill/uL (4.70-6.10)
[2018-11-24] MEDS: Propofol 1,000 MG/100 ML VIAL IV PRN ×4 (05:52→19:42)
[2018-11-24 07:29] LABS: Base Excess (BEa) 4.4 mEq/L (-2.0 to +3.0); CO2 Tension 38.1 mmHg (35.0-45.0); Calcium, Ionized 1.17 mmol/L (1.12-1.30); Carboxyhemoglobin (COHb) 1.7 gm% (0.0-3.0); Hemoglobin (Hb) 12.5 g/dL (14.0-18.0); O2 Tension (PaO2) 87.4 mmHg (80.0-100.0); Potassium - ABG Lab 3.77 mmol/L (3.70-5.30); Puncture Site LRA; pH, Arterial 7.48 (7.35-7.45)
[2018-11-24 07:30] LABS: ALV-art Gradient 185.825 (0-20)
--- NOTE | 2018-11-24 08:06 | RAD ---
AP CHEST: History: Ventilator dependent patient. Date: 11-24-18 Comparison: 11-22-18 FINDINGS: AP chest demonstrates cardiomegaly. Dual-lead intracardiac defibrillator is seen. Bilateral pleural effusions seen. Extensive perihilar airspace opacities seen. No significant interva l change is seen since the previous comparison exam. IMPRESSION: Cardiomegaly. Bilateral pleural effusions and airspace opacities concerning for pulmonary edema or pn eumonia. POS: KENDELL
--- NOTE | 2018-11-24 09:21 | PRG ---
DATE OF SERVICE: 11/24/2018 SUBJECTIVE: Saeid Best remains intubated in the vent, still requiring Diprivan for sedation. OBJECTIVE: VITAL SIGNS: Temperature 99, blood pressure 129/81, respirations 20 , pulse is 88. HEENT: He opens eyes to verbal communication. CHEST: Bilateral rhonchi. CARDIAC: SVT. ABDOMEN: Distended and soft. NEUROLOGIC: He moves all four extremities. DIAGNOSTIC DATA: White count 19,000. H and H 11 and 35, platelet count 159. pO2 is 87, pCO2 is 38, ph 7.34 fio2 45%. BUN and creatinine normal. IMPRESSION: 1. Sepsis syndrome, Staph pneumonia. 2. Seizure disorder. 3. Respiratory failure. 4. Encephalopathy. PLAN: This is day 11 on the vent. If we are unable to wean him in the next several days, require trach and PEG. I discussed with his brother yesterday who is the only family member that I have seen. He is trying to contact his children. His common-law has been here. In the meantime, we will continue nutrition, PT , and supportive care. One half hour critical time. Job ID: [id number] MTDD
[2018-11-24] MEDS: Insulin Glargine 25 UNITS in Pre-Filled Syringe 1 EACH SC SCH (11:56)
[2018-11-24] MEDS: Cefepime 1 GM in Sodium Chloride 0.9% 100 ML IVPB SCH ×2 (11:56→23:35)
[2018-11-24] MEDS: Linezolid 600 MG in Premix Bag 1 BAG IVPB SCH ×2 (12:02→23:35)
[2018-11-24] MEDS: Furosemide 40 MG/4 ML VIAL SLOW IVP SCH (12:03)
[2018-11-24] MEDS: risperiDONE 0.25 MG TAB PO SCH ×3 (12:04→20:11)
[2018-11-24] MEDS: Carvedilol 6.25 MG TAB PO SCH ×2 (12:04→20:01)
[2018-11-24] MEDS: Enoxaparin Sodium 40 MG/0.4 ML SYRINGE SC SCH (12:05)
[2018-11-24] MEDS: levETIRAcetam In NaCl (Iso-Os) 1,000 MG in Premix Bag 1 BAG IVPB SCH ×2 (12:06→20:01)
[2018-11-24] MEDS: Acetaminophen 500 MG TAB PO PRN (12:27)
[2018-11-24] MEDS: Famotidine/PF 20 mg/2ml Vial SLOW IVP SCH (12:28)
[2018-11-24] MEDS: Spironolactone 25 MG TAB PO SCH ×2 (12:29→20:00)
--- NOTE | 2018-11-24 14:51 | PDOC.PN ---
- Subjective Encounter Start Date: 11/24/18 Encounter Start Time: 13:15 Mr. Best was seen today in follow-up of seizure and acute respiratory failure. He remains intubated. - Objective Resuscitation Status - Order Detail: 11/13/18 21:47 Resuscitation Status Routine Resuscitation Status: FULL: Full Resuscitation MAR Reviewed: Yes Vital Signs & Weight: Vital Signs (12 hours) Temp Pulse Resp BP Pulse Ox 11/24/18 14:02 83 109/64 11/24/18 13:58 84 26 H 96 11/24/18 12:04 133/82 11/24/18 10:37 90 112/66 11/24/18 08:00 99.8 F H 29 H 11/24/18 06:59 92 124/73 11/24/18 06:58 91 20 94 L 11/24/18 06:00 23 H 11/24/18 04:00 99.8 F H 27 H 11/24/18 02:52 85 102/63 Weight Admit Weight 292 lb Weight 289 lb 10.998 oz Most Recent Monitor Data Heart Rate from ECG 97 NIBP 129/81 NIBP BP-Mean 97 Respiration from ECG 21 SpO2 94 I&O: 11/23/18 11/24/18 11/25/18 06:59 06:59 06:59 Intake Total 2224.3 2549.5 45.1 Output Total 2340 1905 60 Balance -115.7 644.5 -14.9 Result Diagrams: 11/24/18 04:31 11/24/18 04:31 Additional Labs: Accuchecks 11/24/18 11/23/18 11/23/18 04:42 21:50 16:48 POC Glucose 145 H 121 H 128 H Phys Exam - Physical Examination HEENT: PERRLA Respiratory: no wheezing, no rales, no rhonchi, clear to auscultation bilateral Cardiovascular: RRR, no significant murmur, no rub Gastrointestinal: soft, positive bowel sounds Musculoskeletal: no edema Dx/Plan (1) Seizure Code(s): R56.9 - UNSPECIFIED CONVULSIONS Status: Acute (2) Acute respiratory failure Code(s): J96.00 - ACUTE RESPIRATORY FAILURE, UNSP W HYPOXIA OR HYPERCAPNIA Status: Acute (3) Chronic systolic heart failure, ACC/AHA stage C Code(s): I50.22 - CHRONIC SYSTOLIC (CONGESTIVE) HEART FAILURE Status: Chronic (4) Diabetes type 2, controlled Code(s): E11.9 - TYPE 2 DIABETES MELLITUS WITHOUT COMPLICATIONS Status: Chronic Qualifiers: Diabetes mellitus ferry terminal supervisor insulin use: without snf use Diabetes mellitus complication status: without complication Qualified Code(s): E11.9 - Type 2 diabetes mellitus without complications (5) Hypertension Code(s): I10 - ESSENTIAL (PRIMARY) HYPERTENSION Status: Chronic Qualifiers: Hypertension type: essential hypertension Qualified Code(s): I10 - Essential (primary) hypertension (6) Polysubstance abuse Code(s): F19.10 - OTHER PSYCHOACTIVE SUBSTANCE ABUSE, UNCOMPLICATED Status: Chronic - Plan * Seizures- controlled with Keppra * Acute respiratory failure- he continues to require ventilator support * Continue Cefepime and Zyvox * HTN- blood pressure is controlled * DM- blood glucose is controlled * He will need trach and PEG, awaiting family response
[2018-11-24] MEDS: HumaLOG 300 UNITS/3 ML VIAL SC PRN ×2 (15:32→20:03)
[2018-11-24] MEDS: fentaNYL Citrate/PF 2,000 MCG in Sodium Chloride 0.9% 60 ML IV SCH (19:56)
[2018-11-24] MEDS: Famotidine 20 MG TAB PO SCH (20:00)
[2018-11-24] MEDS: Scopolamine 1.5 mg/72 hour Patch TD SCH (23:36)
[2018-11-25] MEDS: Propofol 1,000 MG/100 ML VIAL IV PRN ×6 (00:24→23:33)
[2018-11-25] MEDS: Insulin Glargine 25 UNITS in Pre-Filled Syringe 1 EACH SC SCH ×3 (00:24→21:47)
[2018-11-25] MEDS: HumaLOG 300 UNITS/3 ML VIAL SC PRN ×4 (00:25→22:02)
[2018-11-25 01:25] LABS: GC by PCR Not Detected (NotDetected)
[2018-11-25 05:20] LABS: #Basophils 0.1 thou/uL (0.0-0.2); #Eosinphils 0.3 thou/uL (0.0-0.7); #Lymphocytes 1.5 thou/uL (1.20-3.40); #Monocytes 1.4 thou/uL (0.11-0.59); #Neutrophils 8.9 thou/uL (1.40-6.50); %Basophils 0.5 % (0.0-1.0); %Eosinophils 2.3 % (0.0-10.0); %Lymphocytes 11.9 % (21.0-51.0); %Monocytes 11.8 % (0.0-10.0); %Neutrophils 73.5 % (42.0-75.0); Mean Corpuscular HGB CONC 31.1 g/dL (32.0-36.0); Mean Corpuscular Hemoglobin 29.2 pg (27.0-31.0); Mean Corpuscular Volume 94.1 fL (78.0-98.0); Mean Platelet Volume 8.7 fL (7.4-10.4); Platelet Count 173 thou/uL (130-400); RBC Distribution Width 14.3 % (11.5-14.5); Red Blood Cell (RBC) Count 4.09 mill/uL (4.70-6.10); White Blood Cell (WBC) Count 12.2 thou/uL (4.8-10.8)
[2018-11-25 05:30] LABS: Anion Gap 16 mmol/L (10-20); BUN (Urea Nitrogen) 33 mg/dL (8.9-20.6); Calc. Creatinine Clearance 139 mL/min (70-130); Calcium 8.8 mg/dL (7.8-10.44); Carbon Dioxide 24 mmol/L (22-29); Chloride 106 mmol/L (98-107); Estimated GFR-MDRD 79; Glucose 156 mg/dL (70-105); Sodium 142 mmol/L (136-145)
[2018-11-25 07:59] LABS: CO2 Tension 46.6 mmHg (35.0-45.0); Calcium, Ionized 1.15 mmol/L (1.12-1.30); Carboxyhemoglobin (COHb) 1.3 gm% (0.0-3.0); Hemoglobin (Hb) 11.4 g/dL (14.0-18.0); O2 Tension (PaO2) 86.8 mmHg (80.0-100.0); Potassium - ABG Lab 3.97 mmol/L (3.70-5.30); pH, Arterial 7.44 (7.35-7.45)
[2018-11-25 08:00] LABS: Puncture Site L.R.
--- NOTE | 2018-11-25 08:25 | RAD ---
PORTABLE CHEST: DATE: 11/25/2018. PROVIDED CLINICAL HISTORY: Respiratory insufficiency. COMPARISON: 11/24/2018. FINDINGS: Significant interval change with respect to the prior examination is not apparent. Evaluation is mcqueen ited due to rotation. IMPRESSION: As above. POS: OFF
--- NOTE | 2018-11-25 08:41 | PDOC.PN ---
- Subjective Encounter Start Date: 11/25/18 Encounter Start Time: 10:43 Mr. Best was seen today in follow-up of Respiratory failure and seizure disorder. He remains intubated. No seizures reported. - Objective Resuscitation Status - Order Detail: 11/13/18 21:47 Resuscitation Status Routine Resuscitation Status: FULL: Full Resuscitation MAR Reviewed: Yes Vital Signs & Weight: Vital Signs (12 hours) Temp Pulse Resp BP Pulse Ox 11/25/18 07:43 89 17 95/66 93 L 11/25/18 02:42 88 97/71 11/25/18 02:00 30 H 11/25/18 01:03 86 25 H 95 11/25/18 00:00 99.8 F H 29 H 11/24/18 22:29 86 91/64 11/24/18 22:00 24 H Weight Admit Weight 292 lb Weight 289 lb 10.998 oz Most Recent Monitor Data Heart Rate from ECG 87 NIBP 86/58 NIBP BP-Mean 67 Respiration from ECG 20 SpO2 92 I&O: 11/24/18 11/25/18 11/26/18 06:59 06:59 06:59 Intake Total 2549.5 1175.1 Output Total 1905 1500 Balance 644.5 -324.9 Result Diagrams: 11/25/18 04:43 11/25/18 04:43 Additional Labs: Accuchecks 11/25/18 11/24/18 11/24/18 04:12 23:45 19:48 POC Glucose 160 H 205 H 186 H 11/24/18 15:23 POC Glucose 197 H Phys Exam - Physical Examination HEENT: PERRLA Respiratory: no wheezing, no rales, no rhonchi, clear to auscultation bilateral + coarse breath sounds bilaterally Cardiovascular: RRR, no significant murmur, no rub Gastrointestinal: soft, non-tender, no distention, positive bowel sounds Musculoskeletal: no edema, pulses present Neurological: non-focal Dx/Plan (1) Seizure Code(s): R56.9 - UNSPECIFIED CONVULSIONS Status: Acute (2) Acute respiratory failure Code(s): J96.00 - ACUTE RESPIRATORY FAILURE, UNSP W HYPOXIA OR HYPERCAPNIA Status: Acute (3) Chronic systolic heart failure, ACC/AHA stage C Code(s): I50.22 - CHRONIC SYSTOLIC (CONGESTIVE) HEART FAILURE Status: Chronic (4) Diabetes type 2, controlled Code(s): E11.9 - TYPE 2 DIABETES MELLITUS WITHOUT COMPLICATIONS Status: Chronic Qualifiers: Diabetes mellitus correction insulin use: without watermelon harvesting supervisor use Diabetes mellitus complication status: without complication Qualified Code(s): E11.9 - Type 2 diabetes mellitus without complications (5) Hypertension Code(s): I10 - ESSENTIAL (PRIMARY) HYPERTENSION Status: Chronic Qualifiers: Hypertension type: essential hypertension Qualified Code(s): I10 - Essential (primary) hypertension (6) Polysubstance abuse Code(s): F19.10 - OTHER PSYCHOACTIVE SUBSTANCE ABUSE, UNCOMPLICATED Status: Chronic - Plan * Seizure disorder- continue Keppra * Acute respiratory failure- due to Pneumonia, and CHF- continue Cefepime and Zyvox * CHF- spironolactone and Lisinopril have been added * He is not yet weanable, and the patient's daughter has decided on trach and PEG * HTN- blood pressure is low normal. * DM- blood glucose is stable
--- NOTE | 2018-11-25 08:59 | PRG ---
DATE OF SERVICE: 11/25/2018 SUBJECTIVE: Nasir is intubated in the vent, encephalopathic. OBJECTIVE: VITAL SIGNS: Temperature is 99.8, maximum was 101.5 yesterday, pulse 79, blood pressure 95/66, respirations 20, sedated with Diprivan and fentanyl. His I's and O's have been adequate. CHEST: Extensive rhonchi and crackles. CARDIAC: Normal S1, S2. No gallops. ABDOMEN: No masses. LABORATORY STUDIES/DATA: His lytes are normal. His white count 12,000, H and H 12 and 38, platelet count normal. X-ray shows worsening bilateral pleural effusion. IMPRESSION: 1. Respiratory failure, congestive heart failure, EF 20%. 2. Status post seizure activity. 3. Major encephalopathy, history of drug abuse. PLAN: He is covered with Zyvox and Maxipime. At this stage, day #12 is probably not weanable. Family members want everything to be done including a trach and a PEG. If blood pressure remains borderline low, he probably needs to be diuresed more aggressively. We will try as long as his blood pressure is adequate. One half hour of critical time. Job ID: [id number]
[2018-11-25] MEDS: levETIRAcetam In NaCl (Iso-Os) 1,000 MG in Premix Bag 1 BAG IVPB SCH ×2 (09:14→21:47)
[2018-11-25] MEDS: Linezolid 600 MG in Premix Bag 1 BAG IVPB SCH ×3 (09:14→21:47)
[2018-11-25] MEDS: risperiDONE 0.25 MG TAB PO SCH ×3 (09:15→21:48)
[2018-11-25] MEDS: Carvedilol 6.25 MG TAB PO SCH ×2 (09:15→21:48)
[2018-11-25] MEDS: Famotidine 20 MG TAB PO SCH ×2 (09:16→21:48)
[2018-11-25] MEDS: Lisinopril 5 MG TAB PO SCH ×2 (09:16→21:48)
[2018-11-25] MEDS: Spironolactone 25 MG TAB PO SCH ×2 (09:24→17:54)
[2018-11-25] MEDS: Furosemide 40 MG/4 ML VIAL SLOW IVP SCH ×2 (09:24→21:48)
[2018-11-25] MEDS: Enoxaparin Sodium 40 MG/0.4 ML SYRINGE SC SCH (09:25)
[2018-11-25] MEDS ORDERED: Polyethylene Glycol 3350 17 GM Packet PER TUBE PRN (10:41)
[2018-11-25] MEDS: Cefepime 1 GM in Sodium Chloride 0.9% 100 ML IVPB SCH (10:41)
[2018-11-25] MEDS ORDERED: Bisacodyl 10 MG SUPP PR PRN (10:41)
[2018-11-25] MEDS ORDERED: Pancrelipase DR 12000 1 CAP FS PRN (11:33)
[2018-11-25] MEDS ORDERED: Sodium Bicarbonate Tab 325 MG TAB PER TUBE PRN (11:33)
--- NOTE | 2018-11-25 14:01 | HP ---
HISTORY OF PRESENT ILLNESS: Saeid Best is a 52-year-old black male admitted to the hospital on 11/13/2018. The patient was found down in home by family. He is intubated, respiratory failure, pneumonia, MRSA. He was found to have acute CVA with right-sided weakness with embolic phenomenon in September 2018. I was told that he was smoking meth. I have been asked to see him regarding tracheostomy and PEG tube. He is on tube feedings. We will plan this tracheostomy and PEG tube next week Wednesday. PAST MEDICAL HISTORY: History of recent stroke, right hemiparesis in September of 2018, polysubstance abuse with meth and marijuana, morbid obesity, ischemic cardiomyopathy, hypertension, dyslipidemia, diabetes mellitus type 2, COPD, chronic kidney disease, chronic systolic heart failure, coronary artery disease, anxiety disorder, agitated. PAST SURGICAL HISTORY: Cardiac catheterization with stent placement. ALLERGIES: NONE. HOME MEDICATIONS: Aspirin, Lipitor, Lasix, glyburide, spironolactone, lisinopril, Eliquis, Coreg, vitamin B12, folic acid, nitroglycerine, and thiamine. SOCIAL HISTORY: The patient smokes a pack of cigarettes a day according to records. He is positive for meth and marijuana. PHYSICAL EXAMINATION: VITAL SIGNS: 6 feet, 233 pounds, intubated, sedated, 92, heart rate 101/69. LUNGS: Clear to auscultation. CARDIAC: Regular rate and rhythm without murmur or gallop. ABDOMEN: Soft, obese. EXTREMITIES: Unremarkable. LABORATORY DATA: White count 12, hemoglobin 12. Sodium 142, potassium 4.0, BUN 33, creatinine 1.18. ASSESSMENT AND PLAN: Drug use, history of stroke. PLAN: PEG tube and tracheostomy on Wednesday as he is still on tube feedings when I was consulted. Job ID: [id number]
[2018-11-25] MEDS: fentaNYL Citrate/PF 2,000 MCG in Sodium Chloride 0.9% 60 ML IV SCH (17:46)
[2018-11-26] MEDS: Propofol 1,000 MG/100 ML VIAL IV PRN ×4 (04:21→21:47)
[2018-11-26 05:35] LABS: Anion Gap 15 mmol/L (10-20); BUN (Urea Nitrogen) 44 mg/dL (8.9-20.6); Calc. Creatinine Clearance 131 mL/min (70-130); Calcium 8.1 mg/dL (7.8-10.44); Carbon Dioxide 27 mmol/L (22-29); Chloride 103 mmol/L (98-107); Estimated GFR-MDRD 73; Glucose 226 mg/dL (70-105); Potassium 4.9 mmol/L (3.5-5.1); Sodium 140 mmol/L (136-145)
[2018-11-26] MEDS: HumaLOG 300 UNITS/3 ML VIAL SC PRN ×2 (05:54→11:41)
[2018-11-26 07:04] LABS: #Basophils 0.1 thou/uL (0.0-0.2); #Eosinphils 0.3 thou/uL (0.0-0.7); #Lymphocytes 1.4 thou/uL (1.20-3.40); #Monocytes 1.7 thou/uL (0.11-0.59); #Neutrophils 9.3 thou/uL (1.40-6.50); %Basophils 0.5 % (0.0-1.0); %Eosinophils 2.1 % (0.0-10.0); %Lymphocytes 11.1 % (21.0-51.0); %Monocytes 13.2 % (0.0-10.0); Hemoglobin 12.1 g/dL (14.0-18.0); Mean Corpuscular HGB CONC 30.9 g/dL (32.0-36.0); Mean Corpuscular Hemoglobin 28.9 pg (27.0-31.0); Mean Corpuscular Volume 93.7 fL (78.0-98.0); Platelet Count 190 thou/uL (130-400); RBC Distribution Width 14.4 % (11.5-14.5); White Blood Cell (WBC) Count 12.7 thou/uL (4.8-10.8)
--- NOTE | 2018-11-26 08:08 | RAD ---
PORTABLE CHEST: Date: 11/26/18 PROVIDED CLINICAL HISTORY: Respiratory insufficiency. FINDINGS: Comparison with 11/25/18. Significant interval change with respect to the prior examination is not apparent. IMPRESSION: As above. POS: KAM
[2018-11-26] MEDS: levETIRAcetam In NaCl (Iso-Os) 1,000 MG in Premix Bag 1 BAG IVPB SCH ×2 (08:36→21:21)
[2018-11-26] MEDS: Carvedilol 6.25 MG TAB PO SCH ×2 (08:42→21:58)
[2018-11-26] MEDS: Lisinopril 5 MG TAB PO SCH ×2 (08:43→21:27)
[2018-11-26] MEDS: Spironolactone 25 MG TAB PO SCH ×2 (08:44→17:10)
[2018-11-26 08:45] LABS: Actual Bicarbonate (HCO3a) 31.2 mEq/L (22-28); Base Excess (BEa) 5.6 mEq/L (-2.0 to +3.0); CO2 Tension 50.1 mmHg (35.0-45.0); Calcium, Ionized 1.13 mmol/L (1.12-1.30); Carboxyhemoglobin (COHb) 1.2 gm% (0.0-3.0); Hemoglobin (Hb) 12.1 g/dL (14.0-18.0); O2 Tension (PaO2) 73.7 mmHg (80.0-100.0); Potassium - ABG Lab 4.05 mmol/L (3.70-5.30); pH, Arterial 7.41 (7.35-7.45)
[2018-11-26] MEDS: Furosemide 40 MG/4 ML VIAL SLOW IVP SCH ×2 (08:45→21:26)
[2018-11-26] MEDS: Enoxaparin Sodium 40 MG/0.4 ML SYRINGE SC SCH (08:45)
[2018-11-26] MEDS: Famotidine 20 MG TAB PO SCH ×2 (08:45→21:26)
[2018-11-26 08:46] LABS: Puncture Site L.R.
[2018-11-26] MEDS: Insulin Glargine 25 UNITS in Pre-Filled Syringe 1 EACH SC SCH (08:46)
[2018-11-26 08:47] LABS: ALV-art Gradient 184.525 (0-20)
[2018-11-26] MEDS: risperiDONE 0.25 MG TAB PO SCH ×3 (08:58→21:26)
[2018-11-26] MEDS: Linezolid 600 MG in Premix Bag 1 BAG IVPB SCH ×2 (09:34→21:25)
--- NOTE | 2018-11-26 10:57 | PRG ---
DATE OF SERVICE: 11/26/2018 SUBJECTIVE: The patient is seen and examined at the bedside. He is sedated and intubated. There was no any unexpected events overnight. OBJECTIVE: VITAL SIGNS: Blood pressure is 99/73, pulse is 85, respiratory rate is 23, and O2 saturation is 96% on the ventilator. HEENT: His pupils are responding to light in a sluggish way since he is sedated. Sclerae are nonicteric. Conjunctivae are pinkish. Oral mucosa is not assessed since he is orally intubated. LUNGS: Breath sounds somewhat diminished at both bases with few rales bilaterally. HEART: S1 and S2. No S3. No S4. No any murmur. ABDOMEN: Soft, nondistended, and obese. Bowel sounds are present. No organomegaly. EXTREMITIES: 1+ peripheral edema bilaterally on lower extremities and upper extremities. NEUROLOGIC: Postponed since he is sedated. LABORATORY DATA: Labs showed white count of 12.7, hemoglobin of 12.1, hematocrit of 39.3, and platelet count of 190,000. ABGs showed pH of 7.41, pCO2 of 50.1, and pO2 of 73.7. Normal electrolytes. BUN of 44, creatinine 1.27, and glycemia is ranging from 186 to 228. Microbiology, nothing new. Chest x-ray this morning showed there is no any significant interval change with respect to the prior examination. IMPRESSION: 1. Seizure acute, on the control. 2. Acute respiratory failure on the ventilator. This was with hypoxia and hypercapnia. 3. Chronic systolic heart failure with left ventricular ejection fraction of 20%. 4. Diabetes mellitus type 2, not controlled. 5. Hypertension. 6. Polysubstance abuse. PLAN: PEG and trach on Wednesday. Continue Keppra. Continue his linezolid for MRSA in bronchial washings aspirate. Also, we are going to continue his tube feeding with Glucerna at 65, he tolerates it without any residuals. We are going to go up on his insulin glargine to a 35 units since his glycemia is not controlled at this point. Job ID: [id number]
[2018-11-26] MEDS: fentaNYL Citrate/PF 2,000 MCG in Sodium Chloride 0.9% 60 ML IV SCH (13:00)
--- NOTE | 2018-11-26 14:40 | PRG ---
DATE OF SERVICE: 11/26/2018 SUBJECTIVE: Saeid Best is doing well today, baseline status. OBJECTIVE: VITAL SIGNS: 101/65, 86, and respiratory rate 21. LUNGS: Clear to auscultation. CARDIAC: Regular rate and rhythm without murmur or gallop. ABDOMEN: Soft. We will plan tracheostomy and PEG tube Wednesday morning. We will keep him n.p.o. without tube feedings tonight after midnight. Job ID: [id number]
[2018-11-26] MEDS: Scopolamine 1.5 mg/72 hour Patch TD SCH (15:49)
[2018-11-26] MEDS: Insulin Glargine 35 UNITS in Pre-Filled Syringe 1 EACH SC SCH (21:29)
--- NOTE | 2018-11-27 00:09 | PRG ---
DATE OF SERVICE: 11/26/2018 SUBJECTIVE: Mr. Best remains mechanically ventilated. OBJECTIVE: VITAL SIGNS: Blood pressure earlier has been 101/65, heart rate is in the 80s in sinus rhythm, respiratory rates in the 20s. HEAD AND NECK: Unremarkable. LUNGS: Clear anteriorly. HEART: Regular rhythm. ABDOMEN: Soft. IMAGING: Chest radiograph is unchanged. LABORATORY DATA: White count 12.7, hemoglobin 12.1, platelets 190,000. Electrolytes are unremarkable. BUN is 44, creatinine 1.27. IMPRESSION: 1. Respiratory failure tentatively on schedule for tracheostomy and percutaneous endoscopic gastrostomy placement. 2. Status post seizures. 3. Methicillin-resistant Staphylococcus aureus pneumonia, on Zyvox. 4. Encephalopathy. 5. Advanced cardiomyopathy. 6. History of substance abuse. Hopefully, we can make some progress weaning once he has a tracheostomy in place. Critical care time 30 minutes. Job ID: [id number]
[2018-11-27] MEDS: Propofol 1,000 MG/100 ML VIAL IV PRN ×4 (01:54→20:00)
[2018-11-27 05:52] LABS: #Basophils 0.1 thou/uL (0.0-0.2); #Eosinphils 0.3 thou/uL (0.0-0.7); #Lymphocytes 1.4 thou/uL (1.20-3.40); #Monocytes 1.3 thou/uL (0.11-0.59); #Neutrophils 7.9 thou/uL (1.40-6.50); %Basophils 0.5 % (0.0-1.0); %Eosinophils 2.9 % (0.0-10.0); %Lymphocytes 12.7 % (21.0-51.0); Hemoglobin 10.8 g/dL (14.0-18.0); Mean Corpuscular HGB CONC 30.1 g/dL (32.0-36.0); Mean Corpuscular Hemoglobin 28.3 pg (27.0-31.0); Mean Corpuscular Volume 93.7 fL (78.0-98.0); Mean Platelet Volume 9.1 fL (7.4-10.4); Platelet Count 223 thou/uL (130-400); RBC Distribution Width 14.3 % (11.5-14.5); Red Blood Cell (RBC) Count 3.84 mill/uL (4.70-6.10)
[2018-11-27 06:06] LABS: Anion Gap 13 mmol/L (10-20); BUN (Urea Nitrogen) 48 mg/dL (8.4-25.7); Calc. Creatinine Clearance 139 mL/min (70-130); Calcium 8.4 mg/dL (7.8-10.44); Carbon Dioxide 29 mmol/L (22-29); Chloride 104 mmol/L (98-107); Estimated GFR-MDRD 78; Glucose 133 mg/dL (70-105); Sodium 142 mmol/L (136-145)
[2018-11-27] MEDS: fentaNYL Citrate/PF 2,000 MCG in Sodium Chloride 0.9% 60 ML IV SCH (06:58)
[2018-11-27 08:37] LABS: Actual Bicarbonate (HCO3a) 30.9 mEq/L (22-28); Base Excess (BEa) 5.9 mEq/L (-2.0 to +3.0); CO2 Tension 46.7 mmHg (35.0-45.0); Calcium, Ionized 1.14 mmol/L (1.12-1.30); Carboxyhemoglobin (COHb) 1.3 gm% (0.0-3.0); Hemoglobin (Hb) 11.3 g/dL (14.0-18.0); O2 Tension (PaO2) 81.9 mmHg (80.0-100.0); Potassium - ABG Lab 3.87 mmol/L (3.70-5.30); pH, Arterial 7.44 (7.35-7.45)
[2018-11-27] MEDS: Spironolactone 25 MG TAB PO SCH ×2 (09:03→17:18)
[2018-11-27] MEDS: Enoxaparin Sodium 40 MG/0.4 ML SYRINGE SC SCH (09:03)
[2018-11-27] MEDS: Insulin Glargine 25 UNITS in Pre-Filled Syringe 1 EACH SC SCH (09:04)
[2018-11-27] MEDS: Lisinopril 5 MG TAB PO SCH ×2 (09:04→21:39)
[2018-11-27] MEDS: Furosemide 40 MG/4 ML VIAL SLOW IVP SCH ×2 (09:58→21:39)
[2018-11-27] MEDS: levETIRAcetam In NaCl (Iso-Os) 1,000 MG in Premix Bag 1 BAG IVPB SCH ×2 (09:58→21:37)
[2018-11-27] MEDS: Linezolid 600 MG in Premix Bag 1 BAG IVPB SCH ×2 (09:59→21:36)
[2018-11-27] MEDS: Famotidine 20 MG TAB PO SCH ×2 (09:59→21:36)
[2018-11-27] MEDS: risperiDONE 0.25 MG TAB PO SCH ×2 (09:59→14:48)
[2018-11-27] MEDS: Carvedilol 6.25 MG TAB PO SCH ×2 (10:01→21:37)
[2018-11-27 10:19] LABS: Puncture Site L.R.
[2018-11-27 10:20] LABS: ALV-art Gradient 180.575 (0-20)
--- NOTE | 2018-11-27 14:08 | PRG ---
DATE OF SERVICE: 11/27/2018 SUBJECTIVE: The patient is seen and examined at bedside. He is sedated. He is intubated. He is going for the PEG and trach this afternoon by Dr. Farmer. There were no any unexpected events overnight. OBJECTIVE: VITAL SIGNS: Blood pressure is 108/74, pulse is 88, respiratory rate is 22, and O2 saturation is 91% on the ventilator. LUNGS: Breath sounds somewhat diminished at both bases. HEART: S1 and S2 normal. No S3. No S4. ABDOMEN: Soft, nondistended. EXTREMITIES: No clubbing or cyanosis. There is 1+ peripheral edema, similar bilaterally on both lower extremities. NEUROLOGICAL: Postponed since he is intubated and sedated. LABORATORY DATA: Labs showed white count of 11.0, hemoglobin 10.8, hematocrit 35.9, and platelet count 223,000. Electrolytes within normal limits. BUN of 48, creatinine 1.19. Glycemia ranging from 74 to 213. IMPRESSION: 1. Status post seizures. 2. Methicillin-resistant Staphylococcus aureus pneumonia, on Zyvox. 3. Respiratory failure, for PEG and trach this afternoon by Dr. Farmer. 4. Cardiomyopathy with left ventricular ejection fraction of 20%. 5. Polysubstance abuse. We will continue his current regimen, Zyvox 600 mg every 12 hours. We will continue his glargine 25 units every morning and 35 units in the evening. His glycemia has improved significantly. Also, we will continue rest of the current regimen. Job ID: [id number]
[2018-11-27] MEDS ORDERED: Vecuronium 10 MG VIAL ONE (15:39)
[2018-11-27] MEDS ORDERED: Rocuronium Bromide 10 MG/ML (10ML VIAL) ONE (15:39)
[2018-11-27] MEDS ORDERED: Bupivacaine HCl 0.5%/Epinephrine 1:200,000/PF 30 ml Vial ONE (15:55)
[2018-11-27] MEDS ORDERED: Lidocaine 2% PF 5 ML VIAL ONE (15:55)
[2018-11-27] MEDS ORDERED: Midazolam HCl 2 mg/2 ml Vial ONE (15:55)
[2018-11-27] MEDS ORDERED: KETAMINE 100 MG/ML (5ML VIAL) ONE (15:56)
--- NOTE | 2018-11-27 17:49 | OP ---
DATE OF PROCEDURE: 11/27/2018 PREOPERATIVE DIAGNOSES: Respiratory failure, obesity, sleep apnea, dysphagia, encephalopathy. POSTOPERATIVE DIAGNOSES: Respiratory failure, obesity, sleep apnea, dysphagia, encephalopathy. PROCEDURE: Number 8 Bivona tracheostomy. Percutaneous endoscopic gastrostomy tube. ANESTHESIA: General. DESCRIPTION OF PROCEDURE: The patient was taken to the operating room under general anesthesia, neck and chest were prepared with ChloraPrep and draped in routine fashion. A transverse skin incision was made above the manubrium and carried down to skin, platysma, anterior cervical veins divided between 3-0 silk ties. Midline strap muscles were divided, reflected laterally. The thyroid divided at the isthmus was identified the trachea. A tracheostomy hook placed beneath the cricoid directed cephalad. The tracheostomy sutures 3-0 Prolene placed on anterior lateral bilaterally. Anterior window of the trachea excised and under direct visualization after good hemostasis in the wound, the endotracheal tube was withdrawn under direct visualization and the number eight Bivona placed in the trachea. Balloon inflated, connected to the ventilator. There was good end-tidal CO2. Good hemostasis was noted. Skin was approximated on either side. We will continue suture of 3-0 Prolene. Tracheostomy appliance was secured to skin with 3-0 Prolene. Sterile dressings were applied. Endoscope placed per os under direct visualization, using air insufflation passed down to the stomach and good indentation noted in the left subcostal. ChloraPrep was used. A stab incision was made. Trocar catheter introduced percutaneously within the gastric lumen, visualized endoscopically, grasping the wire pulled out the endoscope and wire out the mouth. It was connected to the feeding tube, which lubricated, brought down to the esophagus and stomach, fixating the abdominal wall with a fixation device and an abdominal binder applied. The patient tolerated the procedure well. Job ID: [id number]
[2018-11-27] MEDS ORDERED: Labetalol HCl 100 MG/20 ML VIAL ONE (21:18)
[2018-11-27] MEDS: Insulin Glargine 35 UNITS in Pre-Filled Syringe 1 EACH SC SCH (21:40)
[2018-11-28] MEDS: risperiDONE 0.25 MG TAB PO SCH ×4 (01:00→22:04)
[2018-11-28] MEDS: Propofol 1,000 MG/100 ML VIAL IV PRN ×4 (04:13→21:10)
[2018-11-28 05:12] LABS: #Basophils 0.1 thou/uL (0.0-0.2); #Eosinphils 0.2 thou/uL (0.0-0.7); #Lymphocytes 1.2 thou/uL (1.20-3.40); #Monocytes 1.6 thou/uL (0.11-0.59); #Neutrophils 9.5 thou/uL (1.40-6.50); %Basophils 0.4 % (0.0-1.0); %Eosinophils 1.5 % (0.0-10.0); %Lymphocytes 9.9 % (21.0-51.0); %Monocytes 12.8 % (0.0-10.0); %Neutrophils 75.4 % (42.0-75.0); Hemoglobin 11.6 g/dL (14.0-18.0); Mean Corpuscular HGB CONC 30.4 g/dL (32.0-36.0); Mean Corpuscular Hemoglobin 28.5 pg (27.0-31.0); Mean Corpuscular Volume 93.8 fL (78.0-98.0); Mean Platelet Volume 8.2 fL (7.4-10.4); Platelet Count 260 thou/uL (130-400); RBC Distribution Width 14.4 % (11.5-14.5); Red Blood Cell (RBC) Count 4.09 mill/uL (4.70-6.10); White Blood Cell (WBC) Count 12.6 thou/uL (4.8-10.8)
[2018-11-28 05:32] LABS: Anion Gap 17 mmol/L (10-20); BUN (Urea Nitrogen) 37 mg/dL (8.4-25.7); Calc. Creatinine Clearance 155 mL/min (70-130); Calcium 8.9 mg/dL (7.8-10.44); Carbon Dioxide 29 mmol/L (22-29); Chloride 102 mmol/L (98-107); Estimated GFR-MDRD 88; Glucose 136 mg/dL (70-105); Potassium 4.5 mmol/L (3.5-5.1); Sodium 143 mmol/L (136-145)
[2018-11-28] MEDS: fentaNYL Citrate/PF 2,000 MCG in Sodium Chloride 0.9% 60 ML IV SCH (07:30)
[2018-11-28 07:52] LABS: ALV-art Gradient 182.225 (0-20); Actual Bicarbonate (HCO3a) 30.8 mEq/L (22-28); Base Excess (BEa) 6.9 mEq/L (-2.0 to +3.0); CO2 Tension 40.9 mmHg (35.0-45.0); Calcium, Ionized 1.13 mmol/L (1.12-1.30); Carboxyhemoglobin (COHb) 1.6 gm% (0.0-3.0); Hemoglobin (Hb) 11.9 g/dL (14.0-18.0); O2 Tension (PaO2) 87.5 mmHg (80.0-100.0); Potassium - ABG Lab 4.01 mmol/L (3.70-5.30); Puncture Site LRA; pH, Arterial 7.49 (7.35-7.45)
[2018-11-28] MEDS ORDERED: Labetalol HCl 100 MG/20 ML VIAL ONE (08:06)
[2018-11-28] MEDS: Spironolactone 25 MG TAB PO SCH ×2 (08:09→17:17)
[2018-11-28] MEDS: Enoxaparin Sodium 40 MG/0.4 ML SYRINGE SC SCH (08:09)
[2018-11-28] MEDS: Carvedilol 6.25 MG TAB PO SCH ×2 (08:09→22:06)
[2018-11-28] MEDS: Furosemide 40 MG/4 ML VIAL SLOW IVP SCH ×2 (08:09→22:06)
[2018-11-28] MEDS: Lisinopril 5 MG TAB PO SCH ×2 (08:09→22:05)
[2018-11-28] MEDS: levETIRAcetam In NaCl (Iso-Os) 1,000 MG in Premix Bag 1 BAG IVPB SCH ×2 (08:10→22:05)
[2018-11-28] MEDS: Famotidine 20 MG TAB PO SCH ×2 (08:10→22:06)
[2018-11-28] MEDS: Linezolid 600 MG in Premix Bag 1 BAG IVPB SCH ×2 (08:10→22:05)
[2018-11-28] MEDS: Insulin Glargine 25 UNITS in Pre-Filled Syringe 1 EACH SC SCH (08:10)
[2018-11-28] MEDS: Haloperidol Lactate 5 MG/ML VIAL IM SCH ×4 (11:18→22:16)
--- NOTE | 2018-11-28 11:33 | PRG ---
DATE OF SERVICE: 11/28/2018 SUBJECTIVE: The patient is seen and examined at the bedside. He is in ICU C10. He had a tracheostomy done and PEG tube placed yesterday by Dr. Farmer. His sedation has significantly decreased, so he started waking up this morning. There were no any unexpected events overnight. OBJECTIVE: VITAL SIGNS: Blood pressure is 125/78, pulse is 90, respiratory rate is 10, O2 saturation is 95% on the vent. HEENT: His pupils respond to light properly. The sclerae are not icteric. The tracheostomy tube is in place and it is connected to the vent. LUNGS: Breath sounds somewhat diminished at both bases. HEART: S1 and S2 normal. No S3. No S4. ABDOMEN: Soft and nondistended. Bowel sounds sluggish. EXTREMITIES: 1+ peripheral edema, similar bilaterally on lower extremities. NEUROLOGIC: Postponed since the patient is under sedation. LABORATORY DATA: Showed white count of 12.6, hemoglobin 11.6, hematocrit 38.3, platelet count 260,000. ABGs showed pH of 7.49, pCO2 of 40.9, pO2 of 87.5. Normal electrolytes, BUN 37, creatinine 1.07, glycemia is ranging from 104 to 152, calcium 8.9. IMPRESSION: 1. Status post seizures. 2. Methicillin-resistant Staphylococcus aureus pneumonia, on Zyvox. 3. Respiratory failure, status post tracheostomy done last night. 4. Cardiomyopathy with left ventricular ejection fraction of 20%. 5. Polysubstance abuse. PLAN: Continue Zyvox. Continue insulin glargine 25 units every morning and 35 units in the evening. His glycemia seems to be in good level. We are going to start using his PEG tube for feeding, for now, we will just use for medications. General Surgery recommends bolus feeding and we will look for LTAC to transfer him as soon as this is arranged. Job ID: [id number]
--- NOTE | 2018-11-28 13:35 | PRG ---
DATE OF SERVICE: 11/28/2018 SUBJECTIVE: Saeid Best doing well after tracheostomy and PEG tube yesterday. Tracheostomy site healthy without bleeding. PEG site clean and dry. Abdomen, soft and nontender. He is tolerating his bolus tube feedings. Bolus tube feedings due to his agitation, risk of dislodging the tube and requiring laparotomy with his severe cardiomyopathy. Would continue bolus tube feedings to keep the feeding tube sequestra, so he cannot pull it out. At this point, I will see him as needed this hospitalization. Please call if necessary. Job ID: [id number]
--- NOTE | 2018-11-28 14:28 | PRG ---
DATE OF SERVICE: 11/28/2018 SUBJECTIVE: Mr. Best will not awaken and follow commands. It is unclear how long he was down at home with seizing. OBJECTIVE: VITAL SIGNS: Heart rate 113, blood pressure 145/60, respiratory rate 15, oximetry is 99. HEENT: Pupils are reactive. NECK: Supple. LUNGS: Remarkable for coarse equal breath sounds. HEART: Regular rhythm. S1 and S2 are normal. ABDOMEN: Soft and nontender. LABORATORY DATA: White count 20, hemoglobin 10.5, platelets 160. Sodium 141, potassium 3.1, chloride 116, bicarb 13, BUN 11, creatinine 0.55. PH 7.31, CO2 23, PO2 134. IMPRESSION: 1. Respiratory failure. 2. Hyperchloremic acidosis. 3. Status post tracheostomy and PEG placement. 4. Seizures for prolonged period of time associated with drug use prior to admission. 5. We will switch his IV fluids to half-normal saline. This will likely lead to gradual correction of his acid-base disorder. He is not weanable from ventilation at this time. Critical care time 30 minutes. Job ID: [id number]
[2018-11-28] MEDS: Insulin Glargine 35 UNITS in Pre-Filled Syringe 1 EACH SC SCH (22:20)
[2018-11-29] MEDS: Propofol 1,000 MG/100 ML VIAL IV PRN ×3 (00:37→11:01)
[2018-11-29] MEDS: HumaLOG 300 UNITS/3 ML VIAL SC PRN ×4 (00:51→16:17)
[2018-11-29] MEDS: Haloperidol Lactate 5 MG/ML VIAL IM SCH ×3 (03:22→09:56)
[2018-11-29 05:25] LABS: #Eosinphils 0.2 thou/uL (0.0-0.7); #Lymphocytes 1.2 thou/uL (1.20-3.40); #Monocytes 1.6 thou/uL (0.11-0.59); #Neutrophils 12.2 thou/uL (1.40-6.50); %Basophils 0.1 % (0.0-1.0); %Eosinophils 1.1 % (0.0-10.0); %Lymphocytes 7.8 % (21.0-51.0); %Monocytes 10.3 % (0.0-10.0); %Neutrophils 80.7 % (42.0-75.0); Hemoglobin 11.7 g/dL (14.0-18.0); Mean Corpuscular HGB CONC 31.1 g/dL (32.0-36.0); Mean Corpuscular Volume 93.3 fL (78.0-98.0); Platelet Count 305 thou/uL (130-400); RBC Distribution Width 14.4 % (11.5-14.5); Red Blood Cell (RBC) Count 4.02 mill/uL (4.70-6.10); White Blood Cell (WBC) Count 15.1 thou/uL (4.8-10.8)
[2018-11-29 05:42] LABS: Anion Gap 17 mmol/L (10-20); BUN (Urea Nitrogen) 27 mg/dL (8.4-25.7); Calc. Creatinine Clearance 158 mL/min (70-130); Calcium 8.7 mg/dL (7.8-10.44); Carbon Dioxide 27 mmol/L (22-29); Chloride 103 mmol/L (98-107); Estimated GFR-MDRD 90; Glucose 158 mg/dL (70-105); Potassium 3.9 mmol/L (3.5-5.1); Sodium 143 mmol/L (136-145)
[2018-11-29] MEDS: Acetaminophen 500 MG TAB PO PRN ×3 (06:13→21:15)
[2018-11-29 07:27] LABS: Base Excess (BEa) 6.4 mEq/L (-2.0 to +3.0); CO2 Tension 39.6 mmHg (35.0-45.0); Calcium, Ionized 1.15 mmol/L (1.12-1.30); Carboxyhemoglobin (COHb) 1.5 gm% (0.0-3.0); Hemoglobin (Hb) 12.4 g/dL (14.0-18.0); O2 Tension (PaO2) 66.1 mmHg (80.0-100.0); Potassium - ABG Lab 3.65 mmol/L (3.70-5.30)
[2018-11-29 07:28] LABS: Puncture Site LRA
[2018-11-29] MEDS: Carvedilol 6.25 MG TAB PO SCH ×2 (08:17→21:16)
[2018-11-29] MEDS: Spironolactone 25 MG TAB PO SCH ×2 (08:17→16:28)
[2018-11-29] MEDS: Enoxaparin Sodium 40 MG/0.4 ML SYRINGE SC SCH (08:19)
[2018-11-29] MEDS: Lisinopril 5 MG TAB PO SCH ×2 (08:19→21:17)
[2018-11-29] MEDS: Famotidine 20 MG TAB PO SCH ×2 (08:19→21:17)
[2018-11-29] MEDS: Furosemide 40 MG/4 ML VIAL SLOW IVP SCH ×2 (08:19→21:16)
[2018-11-29] MEDS: levETIRAcetam In NaCl (Iso-Os) 1,000 MG in Premix Bag 1 BAG IVPB SCH ×2 (08:20→21:17)
[2018-11-29] MEDS: Insulin Glargine 25 UNITS in Pre-Filled Syringe 1 EACH SC SCH (08:20)
--- NOTE | 2018-11-29 08:43 | PRG ---
DATE OF SERVICE: 11/27/2018 SUBJECTIVE: Mr. Best remains mechanically ventilated. OBJECTIVE: VITAL SIGNS: Heart rate is 81, blood pressure is 90/61, respiratory rate 20, and oximetry is 97%. LUNGS: Clear. HEART: Regular rhythm. ABDOMEN: Soft. EXTREMITIES: Without asymmetry or edema. LABORATORY DATA: White count 11, hemoglobin 10.8, sodium 143, potassium 4, chloride 104, bicarb 29, BUN 48, and creatinine 1.19. PH 7.44, CO2 of 46, and PO2 of 81. IMPRESSION: 1. Respiratory failure. 2. Methicillin-resistant Staph pneumonia. 3. Status post seizures. 4. Encephalopathy. 5. Advanced cardiomyopathy. 6. History of substance abuse. PLAN: Continue supportive care, tracheostomy, and PEG when feasible. Job ID: [id number] MTDD
[2018-11-29] MEDS: risperiDONE 0.25 MG TAB PO SCH ×3 (09:52→21:16)
[2018-11-29] MEDS: Linezolid 600 MG in Premix Bag 1 BAG IVPB SCH ×2 (09:53→21:17)
[2018-11-29] MEDS: Lorazepam 2 MG/ML VIAL SLOW IVP PRN (11:01)
[2018-11-29] MEDS: Haloperidol Lactate 5 MG/ML VIAL SLOW IVP SCH ×4 (13:11→21:16)
[2018-11-29] MEDS: Lorazepam 2 MG/ML VIAL SLOW IVP SCH ×4 (13:11→21:19)
--- NOTE | 2018-11-29 15:09 | PDOC.PN ---
- Subjective Encounter Start Date: 11/29/18 Encounter Start Time: 10:00 Pt seen for followup re: acute respiratory failure. s/p trach, pt unable to answer questions, could not complete ROS. - Objective Resuscitation Status - Order Detail: 11/13/18 21:47 Resuscitation Status Routine Resuscitation Status: FULL: Full Resuscitation MAR Reviewed: Yes Vital Signs & Weight: Vital Signs (12 hours) Temp Pulse Resp BP Pulse Ox 11/29/18 15:00 99.9 F H 11/29/18 14:32 97 115/61 11/29/18 14:00 17 11/29/18 13:12 98 128/73 11/29/18 13:11 97 22 H 98 11/29/18 12:00 100.6 F H 23 H 11/29/18 11:17 107 H 141/84 H 11/29/18 10:00 36 H 11/29/18 08:19 97 118/85 11/29/18 08:17 118/85 11/29/18 08:00 100.8 F H 27 H 11/29/18 07:05 97 118/85 11/29/18 07:02 94 34 H 91 L 11/29/18 06:00 22 H 11/29/18 05:00 100.7 F H 11/29/18 04:02 93 111/77 11/29/18 04:00 24 H Weight Admit Weight 292 lb Weight 283 lb 15.286 oz Most Recent Monitor Data Heart Rate from ECG 99 NIBP 109/67 NIBP BP-Mean 81 Respiration from ECG 28 SpO2 97 I&O: 11/28/18 11/29/18 11/30/18 06:59 06:59 06:59 Intake Total 1250 3037 765 Output Total 3560 3155 855 Balance -2310 -118 -90 Result Diagrams: 11/29/18 05:09 11/29/18 05:09 Additional Labs: Accuchecks 11/29/18 11/29/18 11/29/18 10:25 04:36 00:44 POC Glucose 175 H 156 H 194 H 11/28/18 11/28/18 21:19 17:08 POC Glucose 120 H 88 Labs reviewed by me Phys Exam - Physical Examination Obese HEENT: moist MMs s/p trach Respiratory: clear to auscultation bilateral Cardiovascular: RRR Gastrointestinal: soft PEG+ Neurological: moves all 4 limbs Deviation from normal: Unable to assess Dx/Plan (1) Acute respiratory failure Code(s): J96.00 - ACUTE RESPIRATORY FAILURE, UNSP W HYPOXIA OR HYPERCAPNIA Status: Acute Comment: s/p trach (2) Seizure Code(s): R56.9 - UNSPECIFIED CONVULSIONS Status: Acute Comment: continue Keppra (3) MRSA (methicillin resistant Staphylococcus aureus) infection Code(s): A49.02 - METHICILLIN RESIS STAPH INFECTION, UNSP SITE Status: Acute Comment: continue Zyvox (4) CAD (coronary artery disease) Code(s): I25.10 - ATHSCL HEART DISEASE OF [place] CORONARY ARTERY W/O ANG PCTRS Status: Chronic Qualifiers: Coronary Disease-Associated Artery/Lesion type: [place] artery [place] vs. transplanted heart: [place] heart Associated angina: without angina Qualified Code(s): I25.10 - Atherosclerotic heart disease of [place] coronary artery without angina pectoris Comment: stable (5) Hypertension Code(s): I10 - ESSENTIAL (PRIMARY) HYPERTENSION Status: Chronic Qualifiers: Hypertension type: essential hypertension Qualified Code(s): I10 - Essential (primary) hypertension Comment: controlled (6) DM2 (diabetes mellitus, type 2) Status: Chronic Comment: continue insulin - Plan * . Review of Systems - Medications/Allergies Allergies/Adverse Reactions: Allergies Allergy/AdvReac Type Severity Reaction Status Date / Time No Known Allergies Allergy Verified 09/08/18 15:17 Medications: Current Medications Acetaminophen (Tylenol) 650 mg MT Q4H PRN PRN Reason: Fever > 101 Last Admin: 11/21/18 04:33 Dose: 650 mg Acetaminophen (Tylenol) 1,000 mg PO Q6H PRN PRN Reason: Fever/Mild Pain Last Admin: 11/29/18 13:15 Dose: 1,000 mg Albuterol/Ipratropium (Duoneb) 3 ml NEB [id number] JOSE Last Admin: 11/29/18 13:11 Dose: 3 ml Lipase/Protease/[place]ylase ([place] [id number]) 1 cap FS .PER PROTOCOL PRN PRN Reason: TUBE OCCLUSION PROTOCOL Bisacodyl (Dulcolax) 10 mg MT DAILYPRN PRN PRN Reason: Constipation Last Admin: 11/25/18 18:34 Dose: 10 mg Carvedilol (Coreg) 3.125 mg PO BID [facility] Last Admin: 11/29/18 08:17 Dose: 3.125 mg Dextrose/Water (Dextrose 50%) 25 gm IVP PRN PRN PRN Reason: HYPOGLYCEMIA PROTOCOL Enoxaparin Sodium (Lovenox) 40 mg SC 0900 [facility] Last Admin: 11/29/18 08:19 Dose: 40 mg Famotidine (Pepcid) 20 mg PO Q12HR [facility] Last Admin: 11/29/18 08:19 Dose: 20 mg Furosemide (Lasix) 40 mg SLOW IVP BID [facility] Last Admin: 11/29/18 08:19 Dose: 40 mg Glucagon (Glucagon) 1 mg IM PRN PRN PRN Reason: HYPOGLYCEMIA PROTOCOL Haloperidol Lactate (Haldol) 5 mg SLOW IVP Q6H PRN PRN Reason: Agitation Last Admin: 11/24/18 01:34 Dose: 5 mg Haloperidol Lactate (Haldol) 10 mg SLOW IVP Q3H [facility] Last Admin: 11/29/18 13:11 Dose: 10 mg Fentanyl Citrate 2,000 mcg/ (Sodium Chloride) 100 mls @ 0 mls/hr IV INF [facility]; Protocol Stop: 12/13/18 21:09 Last Admin: 11/28/18 07:30 Dose: 100 mls Levetiracetam 1,000 mg/ Device 100 mls @ 200 mls/hr IVPB BID [facility] Last Admin: 11/29/18 08:20 Dose: 100 mls Fentanyl Citrate (Fentanyl Bolus) 250 mls @ 0 mls/hr IVPB PRN PRN PRN Reason: Breakthrough pain/agitation Stop: 12/13/18 23:28 Potassium Chloride 40 meq/ (Sodium Chloride) 270 mls @ 135 mls/hr IVPB ASDIR PRN PRN Reason: FOR SERUM K+ 2.5 - 3.5 Potassium Chloride 40 meq/ (Device) 100 mls @ 50 mls/hr IVPB ASDIR PRN PRN Reason: FOR SERUM K+ 2.5 - 3.5 Magnesium Sulfate 1 gm/ Sodium (Chloride) 102 mls @ 102 mls/hr IV PRN PRN PRN Reason: MAG LEVEL 1.4 - 2.0 Magnesium Sulfate 2 gm/ Device 100 mls @ 100 mls/hr IVPB ASDIR PRN PRN Reason: MAGNESIUM < 1.4 Potassium Phosphate 9 mmol/ (Sodium Chloride) 103 mls @ 25.75 mls/hr IVPB ASDIR PRN PRN Reason: Phosphate 1.0-1.8 Potassium Phosphate 12 mmol/ (Sodium Chloride) 254 mls @ 63.5 mls/hr IV ASDIR PRN PRN Reason: Serum phosphate 0.5-0.9 Potassium Phosphate 15 mmol/ (Sodium Chloride) 255 mls @ 63.75 mls/hr IV ASDIR PRN PRN Reason: Serum Phos < 0.5 Dextrose/Water (D5w) 1,000 mls @ 0 mls/hr IV INF PRN PRN Reason: HYPOGLYCEMIA PROTOCOL Linezolid 600 mg/ Device 300 mls @ 150 mls/hr IVPB 1000,2200 [facility] Last Admin: 11/29/18 09:53 Dose: 300 mls Insulin Glargine 25 units/ (Miscellaneous Medication) 0.25 mls @ 0 mls/hr SC QAM [facility] Last Admin: 11/29/18 08:20 Dose: 0.25 mls Insulin Glargine 35 units/ (Miscellaneous Medication) 0.35 mls @ 0 mls/hr SC HS [facility] Last Admin: 11/28/18 22:20 Dose: 0.35 mls Insulin Human Lispro (Humalog) 0 units SC .AGGRESSIVE SLIDING PRN; Protocol PRN Reason: AGGRESSIVE SLIDING SCALE Last Admin: 11/29/18 10:25 Dose: 3 unit Lisinopril (Zestril) 5 mg PO BID [facility] Last Admin: 11/29/18 08:19 Dose: 5 mg Lorazepam (Ativan) 2 mg SLOW IVP Q1H PRN PRN Reason: Breakthrough agitation Stop: 12/13/18 23:28 Last Admin: 11/29/18 11:01 Dose: 2 mg Lorazepam (Ativan) 1 mg SLOW IVP Q3H [facility] Last Admin: 11/29/18 13:11 Dose: 1 mg Magnesium Oxide (Magnesium Oxide) 400 mg PO BIDPRN PRN PRN Reason: FOR SERUM MAG 1.4 - 2.0 Magnesium Oxide (Magnesium Oxide) 800 mg PO PRN PRN PRN Reason: FOR SERUM MAG < 1.4 Miscellaneous Medication (Phos-Nak) 1 pkt PO TIDPRN PRN PRN Reason: FOR PHOS LEVEL 1.0 - 1.8 Miscellaneous Medication (Phos-Nak) 2 pkt PO TIDPRN PRN PRN Reason: FOR PHOS LEVEL 0.5 - 1.0 Morphine Sulfate (Morphine) 2 mg SLOW IVP Q1H PRN PRN Reason: BREAKTHROUGH PAIN/Agitation Stop: 12/13/18 23:28 Morphine Sulfate (Morphine) 2 mg SLOW IVP Q4H PRN PRN Reason: Moderate Pain (4-6) Ccu Electrolyte (Replacement Protocol) 0 each FS PRN PRN PRN Reason: FOR ELECTROLYTE REPLACEMENT Ondansetron HCl (Zofran) 4 mg IVP Q6H PRN PRN Reason: Nausea/Vomiting Polyethylene Glycol (Miralax) 17 gm PER TUBE DAILY PRN PRN Reason: Constipation Potassium Chloride (K-Dur) 40 meq PO ASDIR PRN PRN Reason: FOR SERUM K+ 2.5 - 3.5 Potassium Chloride (Klor-Con) 40 meq PER TUBE ASDIR PRN PRN Reason: FOR SERUM K+ 2.5-3.5 Propofol (Diprivan) 1,000 mg IV INF PRN; Protocol PRN Reason: TO ACHIEVE GOAL RASS Stop: 12/13/18 23:28 Last Admin: 11/29/18 11:01 Dose: 1,000 mg Propofol (Diprivan Bolus) 20 mg IV Q5MIN PRN PRN Reason: BREAKTHROUGH AGITATION Stop: 12/13/18 23:28 Risperidone (Risperidone) 0.5 mg PO TID [facility] Last Admin: 11/29/18 14:45 Dose: 0.5 mg Scopolamine (Transderm Scop) 1.5 mg TD Q3D [facility] Last Admin: 11/26/18 15:49 Dose: 1.5 mg Sodium Bicarbonate (Bicarbonate, Sodium) 650 mg PER TUBE .PER PROTOCOL PRN PRN Reason: ENTERAL TUBE OCCLUSION Sodium Chloride (Flush - Normal Saline) 10 ml IVF Q12HR [facility] Last Admin: 11/29/18 09:53 Dose: 10 ml Sodium Chloride (Flush - Normal Saline) 10 ml IVF PRN PRN PRN Reason: Saline Flush Last Admin: 11/29/18 09:52 Dose: 10 ml Spironolactone (Aldactone) 25 mg PO BID-[facility] Last Admin: 11/29/18 08:17 Dose: 25 mg
--- NOTE | 2018-11-29 17:58 | PRG ---
DATE OF SERVICE: 11/29/2018 SUBJECTIVE: Mr. Best is started to nod to questions, intermittently follows commands. When he is not deeply sedated, he is extremely agitated. Intake and outputs are negative, 118 mL today. OBJECTIVE: VITAL SIGNS: He is afebrile. Respiratory rates in the teens when he is sedated, blood pressure 113/74, heart rate is in the 90s. LUNGS: Remarkable for coarse equal breath sounds. HEART: Regular rhythm. ABDOMEN: Soft and nontender. EXTREMITIES: Without clubbing, cyanosis, or edema. IMPRESSION: Probable encephalopathy that is multifactorial related to prolonged seizures, perhaps some hypoxic insult combined with perhaps side effect and drug use. An ex Girlfriend apparently showed up today and claimed she quit dating him because he was using drugs continuously. We will check a chest x-ray in the morning, continue with lab. We will start him on IV Haldol with Ativan today to see if this allows us to wean him off propofol. If he does, then we can gradually decrease the interval of the Haldol and Ativan. Hopefully eventually getting to a trach collar. Critical care time 30 minutes. Job ID: [id number] MTDD
[2018-11-29] MEDS: Insulin Glargine 35 UNITS in Pre-Filled Syringe 1 EACH SC SCH (22:12)
[2018-11-30] MEDS: Lorazepam 2 MG/ML VIAL SLOW IVP SCH ×8 (00:10→21:19)
[2018-11-30] MEDS: Haloperidol Lactate 5 MG/ML VIAL SLOW IVP SCH ×8 (00:10→21:18)
[2018-11-30 05:04] LABS: #Eosinphils 0.2 thou/uL (0.0-0.7); #Lymphocytes 1.3 thou/uL (1.20-3.40); #Monocytes 1.6 thou/uL (0.11-0.59); #Neutrophils 11.2 thou/uL (1.40-6.50); %Basophils 0.2 % (0.0-1.0); %Eosinophils 1.4 % (0.0-10.0); %Monocytes 10.9 % (0.0-10.0); %Neutrophils 78.4 % (42.0-75.0); Hemoglobin 11.7 g/dL (14.0-18.0); Mean Corpuscular HGB CONC 30.1 g/dL (32.0-36.0); Mean Corpuscular Hemoglobin 28.5 pg (27.0-31.0); Mean Corpuscular Volume 94.5 fL (78.0-98.0); Mean Platelet Volume 7.9 fL (7.4-10.4); Platelet Count 311 thou/uL (130-400); RBC Distribution Width 14.2 % (11.5-14.5); Red Blood Cell (RBC) Count 4.11 mill/uL (4.70-6.10); White Blood Cell (WBC) Count 14.3 thou/uL (4.8-10.8)
[2018-11-30 05:24] LABS: Anion Gap 15 mmol/L (10-20); BUN (Urea Nitrogen) 27 mg/dL (8.4-25.7); Calc. Creatinine Clearance 152 mL/min (70-130); Calcium 8.7 mg/dL (7.8-10.44); Carbon Dioxide 30 mmol/L (22-29); Chloride 102 mmol/L (98-107); Estimated GFR-MDRD Greater than 90; Glucose 148 mg/dL (70-105); Potassium 3.6 mmol/L (3.5-5.1); Sodium 143 mmol/L (136-145)
[2018-11-30 07:26] LABS: Actual Bicarbonate (HCO3a) 32.9 mEq/L (22-28); Base Excess (BEa) 8.8 mEq/L (-2.0 to +3.0); Calcium, Ionized 1.14 mmol/L (1.12-1.30); Carboxyhemoglobin (COHb) 1.5 gm% (0.0-3.0); Hemoglobin (Hb) 11.7 g/dL (14.0-18.0); O2 Tension (PaO2) 82.6 mmHg (80.0-100.0); Potassium - ABG Lab 3.63 mmol/L (3.70-5.30)
[2018-11-30 07:27] LABS: Puncture Site LRA
--- NOTE | 2018-11-30 09:03 | RAD ---
CHEST 1 VIEW: Date: 11/30/18 HISTORY: Dyspnea. Follow-up. COMPARISON: 11/26/18. FINDINGS: Cardiac silhouette remains magnified and enlarged. Pulmonary vasculature is engorged with bilateral p erihilar and bibasilar infiltrates. On the right, pleural fluid appears less dense than on the previo us study. Left pleural fluid is again demonstrated. Tracheostomy appliance now overlies the upper airway. Nasogastric tube no longer visible. No evidence of pneumothorax. IMPRESSION: 1. Tracheostomy appliance in good radiographic position. Interval removal of nasogastric tube. 2. Slight interval decrease in right pleural fluid. POS: [facility]
[2018-11-30] MEDS: Spironolactone 25 MG TAB PO SCH ×2 (09:28→16:31)
[2018-11-30] MEDS: Lisinopril 5 MG TAB PO SCH ×2 (09:29→21:20)
[2018-11-30] MEDS: Famotidine 20 MG TAB PO SCH ×2 (09:29→21:20)
[2018-11-30] MEDS: Carvedilol 6.25 MG TAB PO SCH ×2 (09:29→21:19)
[2018-11-30] MEDS: Linezolid 600 MG in Premix Bag 1 BAG IVPB SCH ×2 (09:30→21:18)
[2018-11-30] MEDS: Furosemide 40 MG/4 ML VIAL SLOW IVP SCH ×2 (09:30→21:18)
[2018-11-30] MEDS: levETIRAcetam In NaCl (Iso-Os) 1,000 MG in Premix Bag 1 BAG IVPB SCH ×2 (09:30→21:18)
[2018-11-30] MEDS: Enoxaparin Sodium 40 MG/0.4 ML SYRINGE SC SCH (09:31)
[2018-11-30] MEDS: Insulin Glargine 25 UNITS in Pre-Filled Syringe 1 EACH SC SCH (09:31)
[2018-11-30] MEDS: HumaLOG 300 UNITS/3 ML VIAL SC PRN (09:54)
[2018-11-30] MEDS: risperiDONE 0.25 MG TAB PO SCH ×3 (10:02→21:20)
[2018-11-30 11:01] LABS: Chlamydia by PCR Not Detected (NotDetected)
--- NOTE | 2018-11-30 14:49 | PRG ---
DATE OF SERVICE: 11/30/2018 SUBJECTIVE: Saeid Best remains in the critical care unit. OBJECTIVE: VITAL SIGNS: Blood pressure 105/65, heart rate is 91, respiratory rate 17, oximetry is 100%. GENERAL: He is somnolent. He is receiving Haldol and Ativan around the clock. I have increased the interval between doses to hopefully get him to a point where he is cooperative and could easily completely wean from mechanical ventilation. LUNGS: Clear anteriorly. HEART: Regular rhythm. ABDOMEN: Soft. EXTREMITIES: Without clubbing, cyanosis, or edema. DIAGNOSTIC STUDIES: Chest radiograph slightly improved as he had an effusion on the right side. LABORATORY DATA: White count 14.3, hemoglobin 11.7, and platelets 311,000. Sodium 143, potassium 3.6, chloride 102, bicarb 30, BUN 27, and creatinine 1.04. IMPRESSION: 1. Respiratory failure. 2. Status post being found down seizing associated with drug use at home ? component of anoxic injury versus prolonged status injury. 3. Obesity. 4. Respiratory failure with tracheostomy in place. 5. Methicillin-resistant Staph pneumonia. 6. Encephalopathy ? slightly improved. 7. Advanced cardiomyopathy. PLAN: Continue supportive care, nutritional support, adjusting medicines for his encephalopathy with slow weaning from mechanical ventilation as tolerated. Critical care time 30 minutes. Job ID: [id number]
--- NOTE | 2018-11-30 15:24 | PDOC.PN ---
- Subjective Encounter Start Date: 11/30/18 Encounter Start Time: 09:00 Pt seen for followup re: acute respiratory failure. Nonverbal, unable to complete review of systems. - Objective Resuscitation Status - Order Detail: 11/13/18 21:47 Resuscitation Status Routine Resuscitation Status: FULL: Full Resuscitation MAR Reviewed: Yes Vital Signs & Weight: Vital Signs (12 hours) Temp Pulse Resp BP 11/30/18 14:09 94 11/30/18 14:00 17 11/30/18 12:00 100.7 F H 20 11/30/18 11:54 93 11/30/18 10:00 20 11/30/18 09:57 93 11/30/18 09:29 93 118/77 11/30/18 08:00 100.7 F H 27 H 11/30/18 07:12 93 11/30/18 06:00 17 11/30/18 04:00 99.6 F 17 Weight Admit Weight 292 lb Weight 281 lb 1.43 oz Most Recent Monitor Data Heart Rate from ECG 91 NIBP 105/65 NIBP BP-Mean 78 Respiration from ECG 17 SpO2 100 I&O: 11/29/18 11/30/18 12/01/18 06:59 06:59 06:59 Intake Total 3037 3129 330 Output Total 3155 2135 1160 Balance -118 994 -830 Result Diagrams: 11/30/18 04:48 11/30/18 04:48 Additional Labs: Accuchecks 11/30/18 11/30/18 11/29/18 09:53 04:36 21:30 POC Glucose 152 H 137 H 119 H 11/29/18 16:16 POC Glucose 155 H EKG Reviewed by me: Yes (Tele: NSR) Phys Exam - Physical Examination HEENT: moist MMs tracheostomy Respiratory: clear to auscultation bilateral Cardiovascular: RRR Gastrointestinal: soft G-tube Neurological: moves all 4 limbs Psychiatric: normal affect Dx/Plan (1) Acute respiratory failure Code(s): J96.00 - ACUTE RESPIRATORY FAILURE, UNSP W HYPOXIA OR HYPERCAPNIA Status: Acute Comment: s/p trach, in CCU, still on Propofol (2) Seizure Code(s): R56.9 - UNSPECIFIED CONVULSIONS Status: Acute Comment: on Keppra (3) MRSA (methicillin resistant Staphylococcus aureus) infection Code(s): A49.02 - METHICILLIN RESIS STAPH INFECTION, UNSP SITE Status: Acute Comment: on Zyvox (4) CAD (coronary artery disease) Code(s): I25.10 - ATHSCL HEART DISEASE OF [place] CORONARY ARTERY W/O ANG PCTRS Status: Chronic Qualifiers: Coronary Disease-Associated Artery/Lesion type: [place] artery [place] vs. transplanted heart: [place] heart Associated angina: without angina Qualified Code(s): I25.10 - Atherosclerotic heart disease of [place] coronary artery without angina pectoris Comment: stable (5) Hypertension Code(s): I10 - ESSENTIAL (PRIMARY) HYPERTENSION Status: Chronic Qualifiers: Hypertension type: essential hypertension Qualified Code(s): I10 - Essential (primary) hypertension Comment: controlled (6) DM2 (diabetes mellitus, type 2) Status: Chronic Comment: relatively controlled - Plan * . Review of Systems - Medications/Allergies Allergies/Adverse Reactions: Allergies Allergy/AdvReac Type Severity Reaction Status Date / Time No Known Allergies Allergy Verified 09/08/18 15:17 Medications: Current Medications Acetaminophen (Tylenol) 650 mg AR Q4H PRN PRN Reason: Fever > 101 Last Admin: 11/21/18 04:33 Dose: 650 mg Acetaminophen (Tylenol) 1,000 mg PO Q6H PRN PRN Reason: Fever/Mild Pain Last Admin: 11/29/18 21:15 Dose: 1,000 mg Albuterol/Ipratropium (Duoneb) 3 ml NEB [id number] JOSE Last Admin: 11/30/18 11:53 Dose: 3 ml Lipase/Protease/Amylase (Sergo Aguilar [id number]) 1 cap FS .PER PROTOCOL PRN PRN Reason: TUBE OCCLUSION PROTOCOL Bisacodyl (Dulcolax) 10 mg AR DAILYPRN PRN PRN Reason: Constipation Last Admin: 11/25/18 18:34 Dose: 10 mg Carvedilol (Coreg) 3.125 mg PO BID [facility] Last Admin: 11/30/18 09:29 Dose: 3.125 mg Dextrose/Water (Dextrose 50%) 25 gm IVP PRN PRN PRN Reason: HYPOGLYCEMIA PROTOCOL Enoxaparin Sodium (Lovenox) 40 mg SC 0900 [facility] Last Admin: 11/30/18 09:31 Dose: 40 mg Famotidine (Pepcid) 20 mg PO Q12HR [facility] Last Admin: 11/30/18 09:29 Dose: 20 mg Furosemide (Lasix) 40 mg SLOW IVP BID [facility] Last Admin: 11/30/18 09:30 Dose: 40 mg Glucagon (Glucagon) 1 mg IM PRN PRN PRN Reason: HYPOGLYCEMIA PROTOCOL Haloperidol Lactate (Haldol) 10 mg SLOW IVP Q4H [facility] Last Admin: 11/30/18 12:59 Dose: 10 mg Fentanyl Citrate 2,000 mcg/ (Sodium Chloride) 100 mls @ 0 mls/hr IV INF [facility]; Protocol Stop: 12/13/18 21:09 Last Admin: 11/28/18 07:30 Dose: 100 mls Levetiracetam 1,000 mg/ Device 100 mls @ 200 mls/hr IVPB BID [facility] Last Admin: 11/30/18 09:30 Dose: 100 mls Fentanyl Citrate (Fentanyl Bolus) 250 mls @ 0 mls/hr IVPB PRN PRN PRN Reason: Breakthrough pain/agitation Stop: 12/13/18 23:28 Potassium Chloride 40 meq/ (Sodium Chloride) 270 mls @ 135 mls/hr IVPB ASDIR PRN PRN Reason: FOR SERUM K+ 2.5 - 3.5 Potassium Chloride 40 meq/ (Device) 100 mls @ 50 mls/hr IVPB ASDIR PRN PRN Reason: FOR SERUM K+ 2.5 - 3.5 Magnesium Sulfate 1 gm/ Sodium (Chloride) 102 mls @ 102 mls/hr IV PRN PRN PRN Reason: MAG LEVEL 1.4 - 2.0 Magnesium Sulfate 2 gm/ Device 100 mls @ 100 mls/hr IVPB ASDIR PRN PRN Reason: MAGNESIUM < 1.4 Potassium Phosphate 9 mmol/ (Sodium Chloride) 103 mls @ 25.75 mls/hr IVPB ASDIR PRN PRN Reason: Phosphate 1.0-1.8 Potassium Phosphate 12 mmol/ (Sodium Chloride) 254 mls @ 63.5 mls/hr IV ASDIR PRN PRN Reason: Serum phosphate 0.5-0.9 Potassium Phosphate 15 mmol/ (Sodium Chloride) 255 mls @ 63.75 mls/hr IV ASDIR PRN PRN Reason: Serum Phos < 0.5 Dextrose/Water (D5w) 1,000 mls @ 0 mls/hr IV INF PRN PRN Reason: HYPOGLYCEMIA PROTOCOL Linezolid 600 mg/ Device 300 mls @ 150 mls/hr IVPB 1000,2200 [facility] Last Admin: 11/30/18 09:30 Dose: 300 mls Insulin Glargine 25 units/ (Miscellaneous Medication) 0.25 mls @ 0 mls/hr SC QAM [facility] Last Admin: 11/30/18 09:31 Dose: 0.25 mls Insulin Glargine 35 units/ (Miscellaneous Medication) 0.35 mls @ 0 mls/hr SC HS [facility] Last Admin: 11/29/18 22:12 Dose: 0.35 mls Insulin Human Lispro (Humalog) 0 units SC .AGGRESSIVE SLIDING PRN; Protocol PRN Reason: AGGRESSIVE SLIDING SCALE Last Admin: 11/30/18 09:54 Dose: 3 unit Lisinopril (Zestril) 5 mg PO BID [facility] Last Admin: 11/30/18 09:29 Dose: 5 mg Lorazepam (Ativan) 2 mg SLOW IVP Q1H PRN PRN Reason: Breakthrough agitation Stop: 12/13/18 23:28 Last Admin: 11/29/18 11:01 Dose: 2 mg Lorazepam (Ativan) 1 mg SLOW IVP Q4H [facility] Last Admin: 11/30/18 13:00 Dose: 1 mg Magnesium Oxide (Magnesium Oxide) 400 mg PO BIDPRN PRN PRN Reason: FOR SERUM MAG 1.4 - 2.0 Magnesium Oxide (Magnesium Oxide) 800 mg PO PRN PRN PRN Reason: FOR SERUM MAG < 1.4 Miscellaneous Medication (Phos-Nak) 1 pkt PO TIDPRN PRN PRN Reason: FOR PHOS LEVEL 1.0 - 1.8 Miscellaneous Medication (Phos-Nak) 2 pkt PO TIDPRN PRN PRN Reason: FOR PHOS LEVEL 0.5 - 1.0 Morphine Sulfate (Morphine) 2 mg SLOW IVP Q1H PRN PRN Reason: BREAKTHROUGH PAIN/Agitation Stop: 12/13/18 23:28 Morphine Sulfate (Morphine) 2 mg SLOW IVP Q4H PRN PRN Reason: Moderate Pain (4-6) Ccu Electrolyte (Replacement Protocol) 0 each FS PRN PRN PRN Reason: FOR ELECTROLYTE REPLACEMENT Ondansetron HCl (Zofran) 4 mg IVP Q6H PRN PRN Reason: Nausea/Vomiting Polyethylene Glycol (Miralax) 17 gm PER TUBE DAILY PRN PRN Reason: Constipation Potassium Chloride (K-Dur) 40 meq PO ASDIR PRN PRN Reason: FOR SERUM K+ 2.5 - 3.5 Potassium Chloride (Klor-Con) 40 meq PER TUBE ASDIR PRN PRN Reason: FOR SERUM K+ 2.5-3.5 Propofol (Diprivan) 1,000 mg IV INF PRN; Protocol PRN Reason: TO ACHIEVE GOAL RASS Stop: 12/13/18 23:28 Last Admin: 11/29/18 11:01 Dose: 1,000 mg Propofol (Diprivan Bolus) 20 mg IV Q5MIN PRN PRN Reason: BREAKTHROUGH AGITATION Stop: 12/13/18 23:28 Risperidone (Risperidone) 0.5 mg PO TID [facility] Last Admin: 11/30/18 10:02 Dose: 0.5 mg Scopolamine (Transderm Scop) 1.5 mg TD Q3D [facility] Last Admin: 11/26/18 15:49 Dose: 1.5 mg Sodium Bicarbonate (Bicarbonate, Sodium) 650 mg PER TUBE .PER PROTOCOL PRN PRN Reason: ENTERAL TUBE OCCLUSION Sodium Chloride (Flush - Normal Saline) 10 ml IVF Q12HR [facility] Last Admin: 11/30/18 10:02 Dose: 10 ml Sodium Chloride (Flush - Normal Saline) 10 ml IVF PRN PRN PRN Reason: Saline Flush Last Admin: 11/29/18 09:52 Dose: 10 ml Spironolactone (Aldactone) 25 mg PO BID-[facility] Last Admin: 11/30/18 09:28 Dose: 25 mg
[2018-11-30] MEDS: Acetaminophen 500 MG TAB PO PRN (21:19)
[2018-11-30] MEDS: Scopolamine 1.5 mg/72 hour Patch TD SCH (21:20)
[2018-11-30] MEDS: Insulin Glargine 35 UNITS in Pre-Filled Syringe 1 EACH SC SCH (22:38)
[2018-12-01] MEDS: Lorazepam 2 MG/ML VIAL SLOW IVP SCH ×6 (01:20→21:25)
[2018-12-01] MEDS: Haloperidol Lactate 5 MG/ML VIAL SLOW IVP SCH ×6 (01:20→21:25)
[2018-12-01 06:07] LABS: Anion Gap 13 mmol/L (10-20); BUN (Urea Nitrogen) 25 mg/dL (8.4-25.7); Calc. Creatinine Clearance 199 mL/min (70-130); Calcium 8.7 mg/dL (7.8-10.44); Carbon Dioxide 30 mmol/L (22-29); Chloride 103 mmol/L (98-107); Estimated GFR-MDRD Greater than 90; Glucose 133 mg/dL (70-105); Potassium 3.4 mmol/L (3.5-5.1); Sodium 143 mmol/L (136-145)
[2018-12-01 06:19] LABS: #Eosinphils 0.3 thou/uL (0.0-0.7); #Lymphocytes 1.3 thou/uL (1.20-3.40); #Monocytes 1.3 thou/uL (0.11-0.59); #Neutrophils 10.7 thou/uL (1.40-6.50); %Basophils 0.3 % (0.0-1.0); %Lymphocytes 9.4 % (21.0-51.0); %Monocytes 9.8 % (0.0-10.0); %Neutrophils 78.6 % (42.0-75.0); Hemoglobin 10.2 g/dL (14.0-18.0); Mean Corpuscular HGB CONC 29.6 g/dL (32.0-36.0); Mean Corpuscular Hemoglobin 27.8 pg (27.0-31.0); Mean Corpuscular Volume 93.9 fL (78.0-98.0); Mean Platelet Volume 8.1 fL (7.4-10.4); Platelet Count 328 thou/uL (130-400); RBC Distribution Width 14.1 % (11.5-14.5); Red Blood Cell (RBC) Count 3.67 mill/uL (4.70-6.10); White Blood Cell (WBC) Count 13.6 thou/uL (4.8-10.8)
[2018-12-01] MEDS: Lorazepam 2 MG/ML VIAL SLOW IVP PRN ×3 (06:54→15:12)
[2018-12-01] MEDS ORDERED: Fentanyl BOLUS 250 ML IVPB PRN (06:54)
[2018-12-01] MEDS ORDERED: fentaNYL Citrate/PF 2,000 MCG in Sodium Chloride 0.9% 60 ML IV SCH (07:00)
[2018-12-01 07:53] LABS: Actual Bicarbonate (HCO3a) 35.3 mEq/L (22-28); Base Excess (BEa) 10.9 mEq/L (-2.0 to +3.0); Calcium, Ionized 1.13 mmol/L (1.12-1.30); Carboxyhemoglobin (COHb) 1.2 gm% (0.0-3.0); Hemoglobin (Hb) 10.9 g/dL (14.0-18.0); O2 Tension (PaO2) 83.9 mmHg (80.0-100.0); Potassium - ABG Lab 3.33 mmol/L (3.70-5.30)
[2018-12-01 07:55] LABS: Puncture Site LRA
--- NOTE | 2018-12-01 08:06 | RAD ---
AP VIEW CHEST: HISTORY: Ventilator-dependent patient. FINDINGS: AP view chest is obtained on 12/01/2018. Comparison is made to previous exam from 11/30/2018. AP view chest demonstrates an intracardiac defibrillator in place. A tracheostomy tube is in place. Marked cardiomegaly is seen. Pulmonary vascular congestion is seen. Bilateral pleural effusions se en. Radiographic appearance of the chest is stable and unchanged. IMPRESSION: Cardiomegaly and pulmonary vascular congestion. POS: [facility]
[2018-12-01] MEDS: Spironolactone 25 MG TAB PO SCH ×2 (08:30→15:11)
[2018-12-01] MEDS: Carvedilol 6.25 MG TAB PO SCH ×2 (08:31→21:27)
[2018-12-01] MEDS: Enoxaparin Sodium 40 MG/0.4 ML SYRINGE SC SCH (08:31)
[2018-12-01] MEDS: levETIRAcetam In NaCl (Iso-Os) 1,000 MG in Premix Bag 1 BAG IVPB SCH ×2 (08:32→21:25)
[2018-12-01] MEDS: Famotidine 20 MG TAB PO SCH ×2 (08:32→21:28)
[2018-12-01] MEDS: Furosemide 40 MG/4 ML VIAL SLOW IVP SCH ×2 (08:32→21:26)
[2018-12-01] MEDS: Lisinopril 5 MG TAB PO SCH ×2 (08:33→21:26)
[2018-12-01] MEDS: risperiDONE 0.25 MG TAB PO SCH ×3 (08:34→21:28)
[2018-12-01] MEDS: Linezolid 600 MG in Premix Bag 1 BAG IVPB SCH ×2 (08:38→21:26)
[2018-12-01] MEDS: Morphine 2 MG/ML SYRINGE SLOW IVP PRN ×4 (08:39→17:43)
[2018-12-01] MEDS: Insulin Glargine 25 UNITS in Pre-Filled Syringe 1 EACH SC SCH (08:39)
[2018-12-01] MEDS: HumaLOG 300 UNITS/3 ML VIAL SC PRN (10:46)
--- NOTE | 2018-12-01 19:19 | PDOC.PN ---
- Subjective Encounter Start Date: 12/01/18 Encounter Start Time: 09:20 Pt seen for followup re: acute hypoxic resp failure. Pt nonverbal, unable to complete ROS. - Objective Resuscitation Status - Order Detail: 11/13/18 21:47 Resuscitation Status Routine Resuscitation Status: FULL: Full Resuscitation MAR Reviewed: Yes Vital Signs & Weight: Vital Signs (12 hours) Temp Pulse Resp BP Pulse Ox 12/01/18 18:50 98 44 H 100 12/01/18 16:15 87 12/01/18 16:00 38 H 12/01/18 15:00 99.6 F 12/01/18 14:00 35 H 12/01/18 13:17 96 12/01/18 12:00 100.3 F H 28 H 12/01/18 10:17 93 12/01/18 10:00 24 H 12/01/18 08:33 92 151/85 H 12/01/18 08:31 151/65 H 12/01/18 08:00 100.8 F H 27 H 12/01/18 07:35 92 Weight Admit Weight 292 lb Weight 279 lb 12.266 oz Most Recent Monitor Data Heart Rate from ECG 85 NIBP 136/88 NIBP BP-Mean 104 Respiration from ECG 18 SpO2 100 I&O: 11/30/18 12/01/18 12/02/18 06:59 06:59 06:59 Intake Total 3129 2823 939 Output Total 2135 2610 1430 Balance 994 213 -491 Result Diagrams: 12/01/18 05:15 12/01/18 05:15 Additional Labs: Accuchecks 12/01/18 12/01/18 11/30/18 18:36 10:31 21:27 POC Glucose 92 195 H 127 H EKG Reviewed by me: Yes (Tele: NSR) Phys Exam - Physical Examination s/p trach HEENT: moist MMs s/p trach Respiratory: clear to auscultation bilateral Cardiovascular: RRR Gastrointestinal: soft PEG tube Neurological: moves all 4 limbs Deviation from normal: Unable to assess Dx/Plan (1) Acute respiratory failure Code(s): J96.00 - ACUTE RESPIRATORY FAILURE, UNSP W HYPOXIA OR HYPERCAPNIA Status: Acute Comment: s/p trach, on vent, in CCU, on sedation (2) Seizure Code(s): R56.9 - UNSPECIFIED CONVULSIONS Status: Acute Comment: will continue Keppra (3) MRSA (methicillin resistant Staphylococcus aureus) infection Code(s): A49.02 - METHICILLIN RESIS STAPH INFECTION, UNSP SITE Status: Acute Comment: will continue Zyvox (4) CAD (coronary artery disease) Code(s): I25.10 - ATHSCL HEART DISEASE OF [place] CORONARY ARTERY W/O ANG PCTRS Status: Chronic Qualifiers: Coronary Disease-Associated Artery/Lesion type: [place] artery [place] vs. transplanted heart: [place] heart Associated angina: without angina Qualified Code(s): I25.10 - Atherosclerotic heart disease of [place] coronary artery without angina pectoris Comment: stable (5) Hypertension Code(s): I10 - ESSENTIAL (PRIMARY) HYPERTENSION Status: Chronic Qualifiers: Hypertension type: essential hypertension Qualified Code(s): I10 - Essential (primary) hypertension Comment: controlled (6) DM2 (diabetes mellitus, type 2) Status: Chronic Comment: relatively controlled - Plan * . Review of Systems - Medications/Allergies Allergies/Adverse Reactions: Allergies Allergy/AdvReac Type Severity Reaction Status Date / Time No Known Allergies Allergy Verified 09/08/18 15:17 Medications: Current Medications Acetaminophen (Tylenol) 650 mg ID Q4H PRN PRN Reason: Fever > 101 Last Admin: 11/21/18 04:33 Dose: 650 mg Acetaminophen (Tylenol) 1,000 mg PO Q6H PRN PRN Reason: Fever/Mild Pain Last Admin: 11/30/18 21:19 Dose: 1,000 mg Albuterol/Ipratropium (Duoneb) 3 ml NEB [id number] [facility] Last Admin: 12/01/18 18:50 Dose: 3 ml Lipase/Protease/Amylase ([place] [id number]) 1 cap FS .PER PROTOCOL PRN PRN Reason: TUBE OCCLUSION PROTOCOL Bisacodyl (Dulcolax) 10 mg ID DAILYPRN PRN PRN Reason: Constipation Last Admin: 11/25/18 18:34 Dose: 10 mg Carvedilol (Coreg) 3.125 mg PO BID [facility] Last Admin: 12/01/18 08:31 Dose: 3.125 mg Dextrose/Water (Dextrose 50%) 25 gm IVP PRN PRN PRN Reason: HYPOGLYCEMIA PROTOCOL Enoxaparin Sodium (Lovenox) 40 mg SC 0900 [facility] Last Admin: 12/01/18 08:31 Dose: 40 mg Famotidine (Pepcid) 20 mg PO Q12HR [facility] Last Admin: 12/01/18 08:32 Dose: 20 mg Furosemide (Lasix) 40 mg SLOW IVP BID [facility] Last Admin: 12/01/18 08:32 Dose: 40 mg Glucagon (Glucagon) 1 mg IM PRN PRN PRN Reason: HYPOGLYCEMIA PROTOCOL Haloperidol Lactate (Haldol) 10 mg SLOW IVP Q4H [facility] Last Admin: 12/01/18 17:42 Dose: 10 mg Levetiracetam 1,000 mg/ Device 100 mls @ 200 mls/hr IVPB BID [facility] Last Admin: 12/01/18 08:32 Dose: 100 mls Potassium Chloride 40 meq/ (Sodium Chloride) 270 mls @ 135 mls/hr IVPB ASDIR PRN PRN Reason: FOR SERUM K+ 2.5 - 3.5 Potassium Chloride 40 meq/ (Device) 100 mls @ 50 mls/hr IVPB ASDIR PRN PRN Reason: FOR SERUM K+ 2.5 - 3.5 Magnesium Sulfate 1 gm/ Sodium (Chloride) 102 mls @ 102 mls/hr IV PRN PRN PRN Reason: MAG LEVEL 1.4 - 2.0 Magnesium Sulfate 2 gm/ Device 100 mls @ 100 mls/hr IVPB ASDIR PRN PRN Reason: MAGNESIUM < 1.4 Potassium Phosphate 9 mmol/ (Sodium Chloride) 103 mls @ 25.75 mls/hr IVPB ASDIR PRN PRN Reason: Phosphate 1.0-1.8 Potassium Phosphate 12 mmol/ (Sodium Chloride) 254 mls @ 63.5 mls/hr IV ASDIR PRN PRN Reason: Serum phosphate 0.5-0.9 Potassium Phosphate 15 mmol/ (Sodium Chloride) 255 mls @ 63.75 mls/hr IV ASDIR PRN PRN Reason: Serum Phos < 0.5 Dextrose/Water (D5w) 1,000 mls @ 0 mls/hr IV INF PRN PRN Reason: HYPOGLYCEMIA PROTOCOL Linezolid 600 mg/ Device 300 mls @ 150 mls/hr IVPB 1000,2200 [facility] Last Admin: 12/01/18 08:38 Dose: 300 mls Insulin Glargine 25 units/ (Miscellaneous Medication) 0.25 mls @ 0 mls/hr SC QAM [facility] Last Admin: 12/01/18 08:39 Dose: 0.25 mls Insulin Glargine 35 units/ (Miscellaneous Medication) 0.35 mls @ 0 mls/hr SC HS [facility] Last Admin: 11/30/18 22:38 Dose: 0.35 mls Fentanyl Citrate 2,000 mcg/ (Sodium Chloride) 100 mls @ 0 mls/hr IV INF [facility]; Protocol Fentanyl Citrate (Fentanyl Bolus) 250 mls @ 0 mls/hr IVPB PRN PRN PRN Reason: Breakthrough pain/agitation Insulin Human Lispro (Humalog) 0 units SC .AGGRESSIVE SLIDING PRN; Protocol PRN Reason: AGGRESSIVE SLIDING SCALE Last Admin: 12/01/18 10:46 Dose: 3 unit Lisinopril (Zestril) 5 mg PO BID [facility] Last Admin: 12/01/18 08:33 Dose: 5 mg Lorazepam (Ativan) 1 mg SLOW IVP Q4H [facility] Last Admin: 12/01/18 17:42 Dose: 1 mg Lorazepam (Ativan) 2 mg SLOW IVP Q1H PRN PRN Reason: Breakthrough agitation Last Admin: 12/01/18 15:12 Dose: 2 mg Magnesium Oxide (Magnesium Oxide) 400 mg PO BIDPRN PRN PRN Reason: FOR SERUM MAG 1.4 - 2.0 Magnesium Oxide (Magnesium Oxide) 800 mg PO PRN PRN PRN Reason: FOR SERUM MAG < 1.4 Miscellaneous Medication (Phos-Nak) 1 pkt PO TIDPRN PRN PRN Reason: FOR PHOS LEVEL 1.0 - 1.8 Miscellaneous Medication (Phos-Nak) 2 pkt PO TIDPRN PRN PRN Reason: FOR PHOS LEVEL 0.5 - 1.0 Morphine Sulfate (Morphine) 2 mg SLOW IVP Q4H PRN PRN Reason: Moderate Pain (4-6) Last Admin: 12/01/18 11:20 Dose: 2 mg Morphine Sulfate (Morphine) 2 mg SLOW IVP Q1H PRN PRN Reason: BREAKTHROUGH PAIN/Agitation Last Admin: 12/01/18 17:43 Dose: 2 mg Ccu Electrolyte (Replacement Protocol) 0 each FS PRN PRN PRN Reason: FOR ELECTROLYTE REPLACEMENT Ondansetron HCl (Zofran) 4 mg IVP Q6H PRN PRN Reason: Nausea/Vomiting Polyethylene Glycol (Miralax) 17 gm PER TUBE DAILY PRN PRN Reason: Constipation Potassium Chloride (K-Dur) 40 meq PO ASDIR PRN PRN Reason: FOR SERUM K+ 2.5 - 3.5 Potassium Chloride (Klor-Con) 40 meq PER TUBE ASDIR PRN PRN Reason: FOR SERUM K+ 2.5-3.5 Last Admin: 12/01/18 17:43 Dose: 40 meq Propofol (Diprivan) 1,000 mg IV INF PRN; Protocol PRN Reason: TO ACHIEVE GOAL RASS Stop: 12/13/18 23:28 Last Admin: 11/29/18 11:01 Dose: 1,000 mg Propofol (Diprivan Bolus) 20 mg IV Q5MIN PRN PRN Reason: BREAKTHROUGH AGITATION Stop: 12/13/18 23:28 Risperidone (Risperidone) 0.5 mg PO TID [facility] Last Admin: 12/01/18 15:10 Dose: 0.5 mg Scopolamine (Transderm Scop) 1.5 mg TD Q3D [facility] Last Admin: 11/30/18 21:20 Dose: 1.5 mg Sodium Bicarbonate (Bicarbonate, Sodium) 650 mg PER TUBE .PER PROTOCOL PRN PRN Reason: ENTERAL TUBE OCCLUSION Sodium Chloride (Flush - Normal Saline) 10 ml IVF Q12HR [facility] Last Admin: 12/01/18 08:35 Dose: 10 ml Sodium Chloride (Flush - Normal Saline) 10 ml IVF PRN PRN PRN Reason: Saline Flush Last Admin: 11/29/18 09:52 Dose: 10 ml Spironolactone (Aldactone) 25 mg PO BID-WM [facility] Last Admin: 12/01/18 15:11 Dose: 25 mg
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
[2018-12-01] MEDS: Insulin Glargine 35 UNITS in Pre-Filled Syringe 1 EACH SC SCH (21:28)
[2018-12-02] MEDS: Haloperidol Lactate 5 MG/ML VIAL SLOW IVP SCH ×6 (00:41→19:46)
[2018-12-02] MEDS: Lorazepam 2 MG/ML VIAL SLOW IVP SCH ×6 (00:41→19:47)
[2018-12-02] MEDS: Morphine 2 MG/ML SYRINGE SLOW IVP PRN ×4 (04:45→21:54)
[2018-12-02 04:58] LABS: #Basophils 0.1 thou/uL (0.0-0.2); #Eosinphils 0.4 thou/uL (0.0-0.7); #Lymphocytes 1.3 thou/uL (1.20-3.40); #Monocytes 1.1 thou/uL (0.11-0.59); #Neutrophils 9.5 thou/uL (1.40-6.50); %Basophils 0.5 % (0.0-1.0); %Eosinophils 3.2 % (0.0-10.0); %Lymphocytes 10.4 % (21.0-51.0); %Monocytes 8.9 % (0.0-10.0); Hemoglobin 10.5 g/dL (14.0-18.0); Mean Corpuscular HGB CONC 30.1 g/dL (32.0-36.0); Mean Corpuscular Hemoglobin 28.3 pg (27.0-31.0); Mean Corpuscular Volume 94.1 fL (78.0-98.0); Mean Platelet Volume 7.4 fL (7.4-10.4); Platelet Count 366 thou/uL (130-400); Red Blood Cell (RBC) Count 3.71 mill/uL (4.70-6.10); White Blood Cell (WBC) Count 12.3 thou/uL (4.8-10.8)
[2018-12-02 05:18] LABS: Anion Gap 15 mmol/L (10-20); BUN (Urea Nitrogen) 24 mg/dL (8.4-25.7); Calc. Creatinine Clearance 172 mL/min (70-130); Calcium 8.7 mg/dL (7.8-10.44); Carbon Dioxide 29 mmol/L (22-29); Chloride 102 mmol/L (98-107); Estimated GFR-MDRD Greater than 90; Glucose 124 mg/dL (70-105); Potassium 3.6 mmol/L (3.5-5.1); Sodium 142 mmol/L (136-145)
[2018-12-02 06:48] LABS: Actual Bicarbonate (HCO3a) 32.2 mEq/L (22-28); Base Excess (BEa) 7.7 mEq/L (-2.0 to +3.0); CO2 Tension 45.1 mmHg (35.0-45.0); Calcium, Ionized 1.15 mmol/L (1.12-1.30); Carboxyhemoglobin (COHb) 1.3 gm% (0.0-3.0); Hemoglobin (Hb) 11.1 g/dL (14.0-18.0); O2 Tension (PaO2) 97.7 mmHg (80.0-100.0); Potassium - ABG Lab 3.53 mmol/L (3.70-5.30); pH, Arterial 7.47 (7.35-7.45)
[2018-12-02 07:02] LABS: ALV-art Gradient 131.125 (0-20); Puncture Site LRA
[2018-12-02] MEDS: Furosemide 40 MG/4 ML VIAL SLOW IVP SCH ×2 (08:52→19:46)
[2018-12-02] MEDS: Spironolactone 25 MG TAB PO SCH ×2 (08:54→17:15)
[2018-12-02] MEDS: Famotidine 20 MG TAB PO SCH ×2 (08:54→19:46)
[2018-12-02] MEDS: Carvedilol 6.25 MG TAB PO SCH ×2 (08:54→19:45)
[2018-12-02] MEDS: Lisinopril 5 MG TAB PO SCH ×2 (08:54→19:50)
[2018-12-02] MEDS: Enoxaparin Sodium 40 MG/0.4 ML SYRINGE SC SCH (08:55)
[2018-12-02] MEDS: Linezolid 600 MG in Premix Bag 1 BAG IVPB SCH ×2 (09:00→21:00)
[2018-12-02] MEDS: levETIRAcetam In NaCl (Iso-Os) 1,000 MG in Premix Bag 1 BAG IVPB SCH ×2 (09:05→19:48)
[2018-12-02] MEDS: Insulin Glargine 25 UNITS in Pre-Filled Syringe 1 EACH SC SCH (09:06)
[2018-12-02] MEDS: risperiDONE 0.25 MG TAB PO SCH ×3 (09:19→19:45)
--- NOTE | 2018-12-02 09:48 | RAD ---
PORTABLE CHEST: HISTORY: CCU followup. Shortness of breath. COMPARISON: 12/01/2018. FINDINGS: Hazy opacification in the right lung may represent pleural fluid layering posteriorly. There is righ t basilar atelectasis and/or infiltrate. Also evidence of left basilar atelectasis or infiltrate. C ardiomegaly and mild vascular engorgement. Tracheostomy device. Pacemaker lead unchanged. IMPRESSION: The above-noted chest findings do not appear significantly changed from yesterday. POS: [facility]
--- NOTE | 2018-12-02 12:04 | PRG ---
DATE OF SERVICE: 12/02/2018 SUBJECTIVE: Saeid Best remains encephalopathic. He continues on Haldol and Ativan. OBJECTIVE: LUNGS: Clear. HEART: Regular rhythm. ABDOMEN: Soft. EXTREMITIES: Without asymmetry. He still at times combative with the nurses. LABORATORY DATA: White count 12.3, hemoglobin 10.5, and platelets 366. Electrolytes are normal. IMPRESSION: 1. Respiratory failure associated with methamphetamine use and seizures, that were apparently prolonged. 2. Persistent encephalopathy. 3. Status post trach. PLAN: Continue slow weaning attempts. Continue to adjust antipsychotic drugs. CRITICAL CARE TIME: 30 minutes. Job ID: [id number]
--- NOTE | 2018-12-02 18:00 | PDOC.PN ---
- Subjective Encounter Start Date: 12/02/18 Encounter Start Time: 11:20 Pt seen for followup re: acute hypoxic respiratory failure. Nonverbal pt, unable to complete ROS. - Objective Resuscitation Status - Order Detail: 11/13/18 21:47 Resuscitation Status Routine Resuscitation Status: FULL: Full Resuscitation Vital Signs & Weight: Vital Signs (12 hours) Temp Pulse Resp BP Pulse Ox 12/02/18 16:00 99.6 F 45 H 12/02/18 14:24 94 137/100 H 12/02/18 14:00 37 H 12/02/18 13:02 99 144/88 H 12/02/18 12:59 98 44 H 99 12/02/18 12:00 99.7 F H 39 H 12/02/18 10:48 104 H 144/104 H 12/02/18 10:00 41 H 12/02/18 08:54 89 128/76 12/02/18 08:00 23 H 100 12/02/18 06:27 91 127/84 12/02/18 06:26 89 26 H 99 12/02/18 06:00 34 H Weight Admit Weight 292 lb Weight 274 lb 7.608 oz Most Recent Monitor Data Heart Rate from ECG 99 NIBP 149/100 NIBP BP-Mean 116 Respiration from ECG 40 SpO2 100 I&O: 12/01/18 12/02/18 12/03/18 06:59 06:59 06:59 Intake Total 2823 2525 1273 Output Total 2610 2705 1145 Balance 213 -180 128 Result Diagrams: 12/02/18 04:44 12/02/18 04:44 Additional Labs: Accuchecks 12/02/18 12/02/18 12/02/18 17:00 10:00 04:14 POC Glucose 86 123 H 117 H 12/01/18 12/01/18 21:50 18:36 POC Glucose 87 92 Phys Exam - Physical Examination s/p trach HEENT: moist MMs trach Respiratory: clear to auscultation bilateral Cardiovascular: RRR Gastrointestinal: soft, positive bowel sounds PEG tube Neurological: moves all 4 limbs Deviation from normal: Unable to assess Dx/Plan (1) Acute respiratory failure Code(s): J96.00 - ACUTE RESPIRATORY FAILURE, UNSP W HYPOXIA OR HYPERCAPNIA Status: Acute Comment: s/p trach, on vent, being managed in CCU (2) Seizure Code(s): R56.9 - UNSPECIFIED CONVULSIONS Status: Acute Comment: continue Keppra (3) MRSA (methicillin resistant Staphylococcus aureus) infection Code(s): A49.02 - METHICILLIN RESIS STAPH INFECTION, UNSP SITE Status: Acute Comment: continue Zyvox (4) CAD (coronary artery disease) Code(s): I25.10 - ATHSCL HEART DISEASE OF [place] CORONARY ARTERY W/O ANG PCTRS Status: Chronic Qualifiers: Coronary Disease-Associated Artery/Lesion type: [place] artery [place] vs. transplanted heart: [place] heart Associated angina: without angina Qualified Code(s): I25.10 - Atherosclerotic heart disease of [place] coronary artery without angina pectoris Comment: stable (5) Hypertension Code(s): I10 - ESSENTIAL (PRIMARY) HYPERTENSION Status: Chronic Qualifiers: Hypertension type: essential hypertension Qualified Code(s): I10 - Essential (primary) hypertension Comment: controlled (6) DM2 (diabetes mellitus, type 2) Status: Chronic Comment: relatively controlled - Plan * . Review of Systems - Medications/Allergies Allergies/Adverse Reactions: Allergies Allergy/AdvReac Type Severity Reaction Status Date / Time No Known Allergies Allergy Verified 09/08/18 15:17 Medications: Current Medications Acetaminophen (Tylenol) 650 mg GA Q4H PRN PRN Reason: Fever > 101 Last Admin: 11/21/18 04:33 Dose: 650 mg Acetaminophen (Tylenol) 1,000 mg PO Q6H PRN PRN Reason: Fever/Mild Pain Last Admin: 11/30/18 21:19 Dose: 1,000 mg Albuterol/Ipratropium (Duoneb) 3 ml NEB [id number] [facility] Last Admin: 12/02/18 12:59 Dose: 3 ml Lipase/Protease/Amylase ([place] [id number]) 1 cap FS .PER PROTOCOL PRN PRN Reason: TUBE OCCLUSION PROTOCOL Bisacodyl (Dulcolax) 10 mg GA DAILYPRN PRN PRN Reason: Constipation Last Admin: 11/25/18 18:34 Dose: 10 mg Carvedilol (Coreg) 3.125 mg PO BID [facility] Last Admin: 12/02/18 08:54 Dose: 3.125 mg Dextrose/Water (Dextrose 50%) 25 gm IVP PRN PRN PRN Reason: HYPOGLYCEMIA PROTOCOL Enoxaparin Sodium (Lovenox) 40 mg SC 0900 [facility] Last Admin: 12/02/18 08:55 Dose: 40 mg Famotidine (Pepcid) 20 mg PO Q12HR [facility] Last Admin: 12/02/18 08:54 Dose: 20 mg Furosemide (Lasix) 40 mg SLOW IVP BID [facility] Last Admin: 12/02/18 08:52 Dose: 40 mg Glucagon (Glucagon) 1 mg IM PRN PRN PRN Reason: HYPOGLYCEMIA PROTOCOL Haloperidol Lactate (Haldol) 10 mg SLOW IVP Q4H [facility] Last Admin: 12/02/18 17:14 Dose: 10 mg Levetiracetam 1,000 mg/ Device 100 mls @ 200 mls/hr IVPB BID [facility] Last Admin: 12/02/18 09:05 Dose: 100 mls Potassium Chloride 40 meq/ (Sodium Chloride) 270 mls @ 135 mls/hr IVPB ASDIR PRN PRN Reason: FOR SERUM K+ 2.5 - 3.5 Potassium Chloride 40 meq/ (Device) 100 mls @ 50 mls/hr IVPB ASDIR PRN PRN Reason: FOR SERUM K+ 2.5 - 3.5 Magnesium Sulfate 1 gm/ Sodium (Chloride) 102 mls @ 102 mls/hr IV PRN PRN PRN Reason: MAG LEVEL 1.4 - 2.0 Magnesium Sulfate 2 gm/ Device 100 mls @ 100 mls/hr IVPB ASDIR PRN PRN Reason: MAGNESIUM < 1.4 Potassium Phosphate 9 mmol/ (Sodium Chloride) 103 mls @ 25.75 mls/hr IVPB ASDIR PRN PRN Reason: Phosphate 1.0-1.8 Potassium Phosphate 12 mmol/ (Sodium Chloride) 254 mls @ 63.5 mls/hr IV ASDIR PRN PRN Reason: Serum phosphate 0.5-0.9 Potassium Phosphate 15 mmol/ (Sodium Chloride) 255 mls @ 63.75 mls/hr IV ASDIR PRN PRN Reason: Serum Phos < 0.5 Dextrose/Water (D5w) 1,000 mls @ 0 mls/hr IV INF PRN PRN Reason: HYPOGLYCEMIA PROTOCOL Linezolid 600 mg/ Device 300 mls @ 150 mls/hr IVPB 1000,2200 [facility] Last Admin: 12/02/18 09:00 Dose: 300 mls Insulin Glargine 25 units/ (Miscellaneous Medication) 0.25 mls @ 0 mls/hr SC QAM [facility] Last Admin: 12/02/18 09:06 Dose: 0.25 mls Insulin Glargine 35 units/ (Miscellaneous Medication) 0.35 mls @ 0 mls/hr SC HS [facility] Last Admin: 12/01/18 21:28 Dose: 0.35 mls Fentanyl Citrate 2,000 mcg/ (Sodium Chloride) 100 mls @ 0 mls/hr IV INF [facility]; Protocol Fentanyl Citrate (Fentanyl Bolus) 250 mls @ 0 mls/hr IVPB PRN PRN PRN Reason: Breakthrough pain/agitation Insulin Human Lispro (Humalog) 0 units SC .AGGRESSIVE SLIDING PRN; Protocol PRN Reason: AGGRESSIVE SLIDING SCALE Last Admin: 12/01/18 10:46 Dose: 3 unit Lisinopril (Zestril) 5 mg PO BID [facility] Last Admin: 12/02/18 08:54 Dose: 5 mg Lorazepam (Ativan) 1 mg SLOW IVP Q4H [facility] Last Admin: 12/02/18 17:14 Dose: 1 mg Lorazepam (Ativan) 2 mg SLOW IVP Q1H PRN PRN Reason: Breakthrough agitation Last Admin: 12/01/18 15:12 Dose: 2 mg Magnesium Oxide (Magnesium Oxide) 400 mg PO BIDPRN PRN PRN Reason: FOR SERUM MAG 1.4 - 2.0 Magnesium Oxide (Magnesium Oxide) 800 mg PO PRN PRN PRN Reason: FOR SERUM MAG < 1.4 Miscellaneous Medication (Phos-Nak) 1 pkt PO TIDPRN PRN PRN Reason: FOR PHOS LEVEL 1.0 - 1.8 Miscellaneous Medication (Phos-Nak) 2 pkt PO TIDPRN PRN PRN Reason: FOR PHOS LEVEL 0.5 - 1.0 Morphine Sulfate (Morphine) 2 mg SLOW IVP Q4H PRN PRN Reason: Moderate Pain (4-6) Last Admin: 12/02/18 10:14 Dose: 2 mg Morphine Sulfate (Morphine) 2 mg SLOW IVP Q1H PRN PRN Reason: BREAKTHROUGH PAIN/Agitation Last Admin: 12/02/18 04:45 Dose: 2 mg Ccu Electrolyte (Replacement Protocol) 0 each FS PRN PRN PRN Reason: FOR ELECTROLYTE REPLACEMENT Ondansetron HCl (Zofran) 4 mg IVP Q6H PRN PRN Reason: Nausea/Vomiting Polyethylene Glycol (Miralax) 17 gm PER TUBE DAILY PRN PRN Reason: Constipation Potassium Chloride (K-Dur) 40 meq PO ASDIR PRN PRN Reason: FOR SERUM K+ 2.5 - 3.5 Potassium Chloride (Klor-Con) 40 meq PER TUBE ASDIR PRN PRN Reason: FOR SERUM K+ 2.5-3.5 Last Admin: 12/01/18 17:43 Dose: 40 meq Propofol (Diprivan) 1,000 mg IV INF PRN; Protocol PRN Reason: TO ACHIEVE GOAL RASS Stop: 12/13/18 23:28 Last Admin: 11/29/18 11:01 Dose: 1,000 mg Propofol (Diprivan Bolus) 20 mg IV Q5MIN PRN PRN Reason: BREAKTHROUGH AGITATION Stop: 12/13/18 23:28 Quetiapine Fumarate (Seroquel) 100 mg PO HS [facility] Risperidone (Risperidone) 0.5 mg PO TID [facility] Last Admin: 12/02/18 17:14 Dose: 0.5 mg Scopolamine (Transderm Scop) 1.5 mg TD Q3D [facility] Last Admin: 11/30/18 21:20 Dose: 1.5 mg Sodium Bicarbonate (Bicarbonate, Sodium) 650 mg PER TUBE .PER PROTOCOL PRN PRN Reason: ENTERAL TUBE OCCLUSION Sodium Chloride (Flush - Normal Saline) 10 ml IVF Q12HR [facility] Last Admin: 12/02/18 08:58 Dose: 10 ml Sodium Chloride (Flush - Normal Saline) 10 ml IVF PRN PRN PRN Reason: Saline Flush Last Admin: 11/29/18 09:52 Dose: 10 ml Spironolactone (Aldactone) 25 mg PO BID-WM [facility] Last Admin: 12/02/18 17:15 Dose: 25 mg
[2018-12-02] MEDS: Insulin Glargine 35 UNITS in Pre-Filled Syringe 1 EACH SC SCH (19:49)
[2018-12-02] MEDS: Lorazepam 2 MG/ML VIAL SLOW IVP PRN (21:54)
[2018-12-03] MEDS: Lorazepam 2 MG/ML VIAL SLOW IVP SCH ×7 (00:55→20:47)
[2018-12-03] MEDS: Haloperidol Lactate 5 MG/ML VIAL SLOW IVP SCH ×6 (00:55→21:06)
[2018-12-03] MEDS: Morphine 2 MG/ML SYRINGE SLOW IVP PRN (03:42)
[2018-12-03] MEDS: Lorazepam 2 MG/ML VIAL SLOW IVP PRN (03:42)
[2018-12-03 06:08] LABS: #Basophils 0.1 thou/uL (0.0-0.2); #Eosinphils 0.4 thou/uL (0.0-0.7); #Lymphocytes 1.2 thou/uL (1.20-3.40); #Monocytes 1.1 thou/uL (0.11-0.59); #Neutrophils 8.2 thou/uL (1.40-6.50); %Basophils 0.6 % (0.0-1.0); %Eosinophils 3.9 % (0.0-10.0); %Lymphocytes 11.3 % (21.0-51.0); %Monocytes 9.7 % (0.0-10.0); %Neutrophils 74.5 % (42.0-75.0); Hemoglobin 10.4 g/dL (14.0-18.0); Mean Corpuscular HGB CONC 30.4 g/dL (32.0-36.0); Mean Corpuscular Hemoglobin 28.7 pg (27.0-31.0); Mean Corpuscular Volume 94.3 fL (78.0-98.0); Platelet Count 326 thou/uL (130-400); RBC Distribution Width 13.9 % (11.5-14.5); Red Blood Cell (RBC) Count 3.64 mill/uL (4.70-6.10); White Blood Cell (WBC) Count 10.9 thou/uL (4.8-10.8)
[2018-12-03 06:33] LABS: Anion Gap 14 mmol/L (10-20); BUN (Urea Nitrogen) 23 mg/dL (8.4-25.7); Calc. Creatinine Clearance 160 mL/min (70-130); Carbon Dioxide 32 mmol/L (22-29); Chloride 100 mmol/L (98-107); Estimated GFR-MDRD Greater than 90; Glucose 81 mg/dL (70-105); Potassium 3.6 mmol/L (3.5-5.1); Sodium 142 mmol/L (136-145)
[2018-12-03 07:14] LABS: Actual Bicarbonate (HCO3a) 30.5 mEq/L (22-28); Base Excess (BEa) 7.3 mEq/L (-2.0 to +3.0); CO2 Tension 37.7 mmHg (35.0-45.0); Calcium, Ionized 1.15 mmol/L (1.12-1.30); Carboxyhemoglobin (COHb) 1.5 gm% (0.0-3.0); Hemoglobin (Hb) 10.8 g/dL (14.0-18.0); O2 Tension (PaO2) 124.8 mmHg (80.0-100.0); Potassium - ABG Lab 3.86 mmol/L (3.70-5.30); pH, Arterial 7.53 (7.35-7.45)
[2018-12-03 07:15] LABS: ALV-art Gradient 113.275 (0-20); Puncture Site RRA
[2018-12-03] MEDS: Spironolactone 25 MG TAB PO SCH ×2 (08:25→17:33)
[2018-12-03] MEDS: Famotidine 20 MG TAB PO SCH ×2 (08:26→20:34)
[2018-12-03] MEDS: Carvedilol 6.25 MG TAB PO SCH ×2 (08:27→20:26)
[2018-12-03] MEDS: risperiDONE 0.25 MG TAB PO SCH ×3 (08:27→20:34)
[2018-12-03] MEDS: Furosemide 40 MG/4 ML VIAL SLOW IVP SCH ×2 (08:28→20:34)
[2018-12-03] MEDS: Enoxaparin Sodium 40 MG/0.4 ML SYRINGE SC SCH (08:28)
[2018-12-03] MEDS: Linezolid 600 MG in Premix Bag 1 BAG IVPB SCH ×2 (08:29→21:15)
[2018-12-03] MEDS: Insulin Glargine 25 UNITS in Pre-Filled Syringe 1 EACH SC SCH (08:30)
[2018-12-03] MEDS: Lisinopril 5 MG TAB PO SCH ×2 (08:30→20:26)
[2018-12-03] MEDS: levETIRAcetam In NaCl (Iso-Os) 1,000 MG in Premix Bag 1 BAG IVPB SCH ×2 (08:35→20:34)
--- NOTE | 2018-12-03 11:01 | PRG ---
DATE OF SERVICE: 12/03/2018 TIME SPENT: Thirty-five minutes of critical care time. SUBJECTIVE: The patient remains intermittently on mechanical ventilation. He is up in a chair this morning. OBJECTIVE: VITAL SIGNS: His temperature is 98.5, pulse 92, and blood pressure 127/91. Total intake for 24 hours 3 and output 2595. Weight 270 pounds. HEENT: Unremarkable. NECK: Trach in place. LUNGS: Diminished breath sounds at bases. CARDIAC: S1 and S2. Regular. ABDOMEN: Obese, soft, and nontender. EXTREMITIES: Trace edema. LABORATORY DATA: Sodium 142, potassium 3.6, chloride 100, CO2 of 32, BUN 23, creatinine 0.9, and glucose 81. A pH of 7.53, pCO2 at 37, pO2 of 124 on SIMV , tidal volume 500, PEEP 5, pressure support 10, and FiO2 of 40%. White blood cell count 10.9, hematocrit 34.3, and platelet count 326. ASSESSMENT: 1. Respiratory failure after seizure. 2. Encephalopathy. 3. Status post trach. PLAN: 1. Try to move to trach collar today. 2. Discontinue daily chest x-ray and daily ABG. 3. Work towards LTAC placement. Job ID: [id number]
--- NOTE | 2018-12-03 11:52 | PDOC.PN ---
- Subjective Encounter Start Date: 12/03/18 Encounter Start Time: 11:20 -: non-verbal Pt seen for followup re; acute hypoxic resp failure. Pt nonverbal, unable to complete ROS. - Objective Resuscitation Status - Order Detail: 11/13/18 21:47 Resuscitation Status Routine Resuscitation Status: FULL: Full Resuscitation MAR Reviewed: Yes Vital Signs & Weight: Vital Signs (12 hours) Temp Pulse Resp BP Pulse Ox 12/03/18 10:20 97 115/73 12/03/18 10:00 34 H 12/03/18 09:35 91 L 12/03/18 08:30 85 125/85 12/03/18 08:27 125/85 12/03/18 08:00 99.3 F 32 H 12/03/18 06:48 85 108/84 12/03/18 06:47 86 27 H 96 12/03/18 06:00 28 H 12/03/18 04:00 98.5 F 28 H 12/03/18 02:00 35 H 12/03/18 00:00 99 F 31 H Weight Admit Weight 292 lb Weight 270 lb 4.587 oz Most Recent Monitor Data Heart Rate from ECG 93 NIBP 110/65 NIBP BP-Mean 80 Respiration from ECG 37 SpO2 94 I&O: 12/02/18 12/03/18 12/04/18 06:59 06:59 06:59 Intake Total 2525 2063 740 Output Total 2705 2595 1005 Balance -180 -532 -265 Result Diagrams: 12/03/18 05:55 12/03/18 05:55 Additional Labs: Accuchecks 12/03/18 12/03/18 12/02/18 09:59 09:05 22:27 POC Glucose 100 66 L 122 H 12/02/18 17:00 POC Glucose 86 EKG Reviewed by me: Yes (Tele: NSR) Phys Exam - Physical Examination trach tracheostomy Respiratory: clear to auscultation bilateral Cardiovascular: RRR Gastrointestinal: soft Musculoskeletal: edema present Neurological: moves all 4 limbs Deviation from normal: Unable to assess Dx/Plan (1) Acute respiratory failure Code(s): J96.00 - ACUTE RESPIRATORY FAILURE, UNSP W HYPOXIA OR HYPERCAPNIA Status: Acute Comment: s/p trach, on vent (2) Seizure Code(s): R56.9 - UNSPECIFIED CONVULSIONS Status: Acute Comment: on Keppra (3) MRSA (methicillin resistant Staphylococcus aureus) infection Code(s): A49.02 - METHICILLIN RESIS STAPH INFECTION, UNSP SITE Status: Acute Comment: on Zyvox (4) CAD (coronary artery disease) Code(s): I25.10 - ATHSCL HEART DISEASE OF [place] CORONARY ARTERY W/O ANG PCTRS Status: Chronic Qualifiers: Coronary Disease-Associated Artery/Lesion type: [place] artery [place] vs. transplanted heart: [place] heart Associated angina: without angina Qualified Code(s): I25.10 - Atherosclerotic heart disease of [place] coronary artery without angina pectoris Comment: stable (5) Hypertension Code(s): I10 - ESSENTIAL (PRIMARY) HYPERTENSION Status: Chronic Qualifiers: Hypertension type: essential hypertension Qualified Code(s): I10 - Essential (primary) hypertension Comment: controlled (6) DM2 (diabetes mellitus, type 2) Status: Chronic Comment: relatively controlled - Plan * . Review of Systems - Medications/Allergies Allergies/Adverse Reactions: Allergies Allergy/AdvReac Type Severity Reaction Status Date / Time No Known Allergies Allergy Verified 09/08/18 15:17 Medications: Current Medications Acetaminophen (Tylenol) 650 mg MT Q4H PRN PRN Reason: Fever > 101 Last Admin: 11/21/18 04:33 Dose: 650 mg Acetaminophen (Tylenol) 1,000 mg PO Q6H PRN PRN Reason: Fever/Mild Pain Last Admin: 11/30/18 21:19 Dose: 1,000 mg Albuterol/Ipratropium (Duoneb) 3 ml NEB [id number] [facility] Last Admin: 12/03/18 06:47 Dose: 3 ml Lipase/Protease/Amylase ([place] [id number]) 1 cap FS .PER PROTOCOL PRN PRN Reason: TUBE OCCLUSION PROTOCOL Bisacodyl (Dulcolax) 10 mg MT DAILYPRN PRN PRN Reason: Constipation Last Admin: 11/25/18 18:34 Dose: 10 mg Carvedilol (Coreg) 3.125 mg PO BID [facility] Last Admin: 12/03/18 08:27 Dose: 3.125 mg Dextrose/Water (Dextrose 50%) 25 gm IVP PRN PRN PRN Reason: HYPOGLYCEMIA PROTOCOL Enoxaparin Sodium (Lovenox) 40 mg SC 0900 [facility] Last Admin: 12/03/18 08:28 Dose: 40 mg Famotidine (Pepcid) 20 mg PO Q12HR [facility] Last Admin: 12/03/18 08:26 Dose: 20 mg Furosemide (Lasix) 40 mg SLOW IVP BID [facility] Last Admin: 12/03/18 08:28 Dose: 40 mg Glucagon (Glucagon) 1 mg IM PRN PRN PRN Reason: HYPOGLYCEMIA PROTOCOL Haloperidol Lactate (Haldol) 10 mg SLOW IVP Q4H [facility] Last Admin: 12/03/18 08:28 Dose: 10 mg Levetiracetam 1,000 mg/ Device 100 mls @ 200 mls/hr IVPB BID [facility] Last Admin: 12/03/18 08:35 Dose: 100 mls Potassium Chloride 40 meq/ (Sodium Chloride) 270 mls @ 135 mls/hr IVPB ASDIR PRN PRN Reason: FOR SERUM K+ 2.5 - 3.5 Potassium Chloride 40 meq/ (Device) 100 mls @ 50 mls/hr IVPB ASDIR PRN PRN Reason: FOR SERUM K+ 2.5 - 3.5 Magnesium Sulfate 1 gm/ Sodium (Chloride) 102 mls @ 102 mls/hr IV PRN PRN PRN Reason: MAG LEVEL 1.4 - 2.0 Magnesium Sulfate 2 gm/ Device 100 mls @ 100 mls/hr IVPB ASDIR PRN PRN Reason: MAGNESIUM < 1.4 Potassium Phosphate 9 mmol/ (Sodium Chloride) 103 mls @ 25.75 mls/hr IVPB ASDIR PRN PRN Reason: Phosphate 1.0-1.8 Potassium Phosphate 12 mmol/ (Sodium Chloride) 254 mls @ 63.5 mls/hr IV ASDIR PRN PRN Reason: Serum phosphate 0.5-0.9 Potassium Phosphate 15 mmol/ (Sodium Chloride) 255 mls @ 63.75 mls/hr IV ASDIR PRN PRN Reason: Serum Phos < 0.5 Dextrose/Water (D5w) 1,000 mls @ 0 mls/hr IV INF PRN PRN Reason: HYPOGLYCEMIA PROTOCOL Linezolid 600 mg/ Device 300 mls @ 150 mls/hr IVPB 1000,2200 [facility] Last Admin: 12/03/18 08:29 Dose: 300 mls Insulin Glargine 25 units/ (Miscellaneous Medication) 0.25 mls @ 0 mls/hr SC QAM [facility] Last Admin: 12/03/18 08:30 Dose: Not Given Insulin Glargine 35 units/ (Miscellaneous Medication) 0.35 mls @ 0 mls/hr SC HS [facility] Last Admin: 12/02/18 19:49 Dose: Not Given Fentanyl Citrate 2,000 mcg/ (Sodium Chloride) 100 mls @ 0 mls/hr IV INF [facility]; Protocol Fentanyl Citrate (Fentanyl Bolus) 250 mls @ 0 mls/hr IVPB PRN PRN PRN Reason: Breakthrough pain/agitation Insulin Human Lispro (Humalog) 0 units SC .AGGRESSIVE SLIDING PRN; Protocol PRN Reason: AGGRESSIVE SLIDING SCALE Last Admin: 12/01/18 10:46 Dose: 3 unit Lisinopril (Zestril) 5 mg PO BID [facility] Last Admin: 12/03/18 08:30 Dose: 5 mg Lorazepam (Ativan) 1 mg SLOW IVP Q4H [facility] Last Admin: 12/03/18 08:28 Dose: 1 mg Lorazepam (Ativan) 2 mg SLOW IVP Q1H PRN PRN Reason: Breakthrough agitation Last Admin: 12/03/18 03:42 Dose: 2 mg Magnesium Oxide (Magnesium Oxide) 400 mg PO BIDPRN PRN PRN Reason: FOR SERUM MAG 1.4 - 2.0 Magnesium Oxide (Magnesium Oxide) 800 mg PO PRN PRN PRN Reason: FOR SERUM MAG < 1.4 Miscellaneous Medication (Phos-Nak) 1 pkt PO TIDPRN PRN PRN Reason: FOR PHOS LEVEL 1.0 - 1.8 Miscellaneous Medication (Phos-Nak) 2 pkt PO TIDPRN PRN PRN Reason: FOR PHOS LEVEL 0.5 - 1.0 Morphine Sulfate (Morphine) 2 mg SLOW IVP Q4H PRN PRN Reason: Moderate Pain (4-6) Last Admin: 12/02/18 10:14 Dose: 2 mg Morphine Sulfate (Morphine) 2 mg SLOW IVP Q1H PRN PRN Reason: BREAKTHROUGH PAIN/Agitation Last Admin: 12/03/18 03:42 Dose: 2 mg Ccu Electrolyte (Replacement Protocol) 0 each FS PRN PRN PRN Reason: FOR ELECTROLYTE REPLACEMENT Ondansetron HCl (Zofran) 4 mg IVP Q6H PRN PRN Reason: Nausea/Vomiting Polyethylene Glycol (Miralax) 17 gm PER TUBE DAILY PRN PRN Reason: Constipation Potassium Chloride (K-Dur) 40 meq PO ASDIR PRN PRN Reason: FOR SERUM K+ 2.5 - 3.5 Potassium Chloride (Klor-Con) 40 meq PER TUBE ASDIR PRN PRN Reason: FOR SERUM K+ 2.5-3.5 Last Admin: 12/01/18 17:43 Dose: 40 meq Propofol (Diprivan) 1,000 mg IV INF PRN; Protocol PRN Reason: TO ACHIEVE GOAL RASS Stop: 12/13/18 23:28 Last Admin: 11/29/18 11:01 Dose: 1,000 mg Propofol (Diprivan Bolus) 20 mg IV Q5MIN PRN PRN Reason: BREAKTHROUGH AGITATION Stop: 12/13/18 23:28 Quetiapine Fumarate (Seroquel) 100 mg PO HS [facility] Last Admin: 12/02/18 19:46 Dose: 100 mg Risperidone (Risperidone) 0.5 mg PO TID [facility] Last Admin: 12/03/18 08:27 Dose: 0.5 mg Scopolamine (Transderm Scop) 1.5 mg TD Q3D [facility] Last Admin: 11/30/18 21:20 Dose: 1.5 mg Sodium Bicarbonate (Bicarbonate, Sodium) 650 mg PER TUBE .PER PROTOCOL PRN PRN Reason: ENTERAL TUBE OCCLUSION Sodium Chloride (Flush - Normal Saline) 10 ml IVF Q12HR [facility] Last Admin: 12/03/18 08:30 Dose: 10 ml Sodium Chloride (Flush - Normal Saline) 10 ml IVF PRN PRN PRN Reason: Saline Flush Last Admin: 11/29/18 09:52 Dose: 10 ml Spironolactone (Aldactone) 25 mg PO BID[facility] Last Admin: 12/03/18 08:25 Dose: 25 mg
--- NOTE | 2018-12-03 13:03 | RAD ---
RADIOGRAPH CHEST 1 VIEW: Date: 12/03/2018. Time: 4:41 a.m. HISTORY: A 53-year-old male with respiratory distress. COMPARISON: 12/02/2018, 4:52 a.m. FINDINGS: Tracheostomy tube and left subclavian AICD are again noted. Extensive airspace opacities throughout the left lower lobe, and right lower lung zone, with haziness extending into right upper lung zone. No pneumothorax. No interval change overall. IMPRESSION: 1. Bilateral extensive pulmonary densities and possible bilateral pleural effusions. 2. Tracheostomy tube. 3. No interval change since yesterday. RULA [] POS: KAM
[2018-12-03] MEDS: Insulin Glargine 35 UNITS in Pre-Filled Syringe 1 EACH SC SCH (20:03)
[2018-12-03] MEDS: Scopolamine 1.5 mg/72 hour Patch TD SCH (21:15)
[2018-12-04] MEDS: Lorazepam 2 MG/ML VIAL SLOW IVP SCH ×6 (00:07→22:02)
[2018-12-04] MEDS: Haloperidol Lactate 5 MG/ML VIAL SLOW IVP SCH ×6 (00:07→21:53)
[2018-12-04] MEDS: Lorazepam 2 MG/ML VIAL SLOW IVP PRN ×4 (02:55→18:34)
[2018-12-04] MEDS: HumaLOG 300 UNITS/3 ML VIAL SC PRN (05:11)
[2018-12-04 08:45] LABS: #Basophils 0.1 thou/uL (0.0-0.2); #Eosinphils 0.4 thou/uL (0.0-0.7); #Lymphocytes 1.5 thou/uL (1.20-3.40); #Monocytes 1.1 thou/uL (0.11-0.59); #Neutrophils 6.4 thou/uL (1.40-6.50); %Basophils 0.6 % (0.0-1.0); %Eosinophils 4.2 % (0.0-10.0); %Lymphocytes 16.1 % (21.0-51.0); %Monocytes 11.7 % (0.0-10.0); %Neutrophils 67.4 % (42.0-75.0); Hemoglobin 10.3 g/dL (14.0-18.0); Mean Corpuscular HGB CONC 30.8 g/dL (32.0-36.0); Mean Corpuscular Hemoglobin 28.8 pg (27.0-31.0); Mean Corpuscular Volume 93.5 fL (78.0-98.0); Mean Platelet Volume 7.9 fL (7.4-10.4); Platelet Count 354 thou/uL (130-400); RBC Distribution Width 13.6 % (11.5-14.5); Red Blood Cell (RBC) Count 3.58 mill/uL (4.70-6.10); White Blood Cell (WBC) Count 9.5 thou/uL (4.8-10.8)
[2018-12-04 08:53] LABS: Anion Gap 11 mmol/L (10-20); BUN (Urea Nitrogen) 21 mg/dL (8.4-25.7); Calc. Creatinine Clearance 166 mL/min (70-130); Calcium 8.9 mg/dL (7.8-10.44); Carbon Dioxide 34 mmol/L (22-29); Chloride 100 mmol/L (98-107); Estimated GFR-MDRD Greater than 90; Glucose 118 mg/dL (70-105); Potassium 3.8 mmol/L (3.5-5.1); Sodium 141 mmol/L (136-145)
[2018-12-04] MEDS: Lisinopril 5 MG TAB PO SCH (08:55)
[2018-12-04] MEDS: Enoxaparin Sodium 40 MG/0.4 ML SYRINGE SC SCH (08:55)
[2018-12-04] MEDS: Carvedilol 6.25 MG TAB PO SCH ×2 (08:56→21:46)
[2018-12-04] MEDS: Spironolactone 25 MG TAB PO SCH (08:56)
[2018-12-04] MEDS: Furosemide 40 MG/4 ML VIAL SLOW IVP SCH ×2 (08:56→21:04)
[2018-12-04] MEDS: levETIRAcetam In NaCl (Iso-Os) 1,000 MG in Premix Bag 1 BAG IVPB SCH ×2 (08:57→20:35)
[2018-12-04] MEDS: Famotidine 20 MG TAB PO SCH ×2 (08:57→20:34)
[2018-12-04] MEDS: risperiDONE 0.25 MG TAB PO SCH ×3 (09:13→20:34)
[2018-12-04] MEDS: Insulin Glargine 25 UNITS in Pre-Filled Syringe 1 EACH SC SCH (09:28)
[2018-12-04] MEDS: Linezolid 600 MG in Premix Bag 1 BAG IVPB SCH ×2 (09:43→21:52)
--- NOTE | 2018-12-04 10:40 | PRG ---
DATE OF SERVICE: TIME SPENT: 35 minutes critical time. SUBJECTIVE: The patient remains on mechanical ventilation. He becomes very tachypneic when the ventilator settings are lowered. OBJECTIVE: VITAL SIGNS: Temperature 99.8, pulse 96, blood pressure 112/69, O2 saturation 97%. A 24-hour intake 2752, output 3070. HEENT: Unremarkable. NECK: No adenopathy or JVD. LUNGS: Clear anteriorly. CARDIAC: S1, S2. Tachycardic. ABDOMEN: Soft, nontender. EXTREMITIES: No edema. LABORATORY DATA: Sodium 141, potassium 3.8, BUN 21, creatinine 0.9, glucose 118. White blood cell count 9.5, hematocrit 33.5, and platelet count 354. ASSESSMENT: 1. Respiratory failure, requiring mechanical ventilation. 2. Diabetes mellitus. 3. Decreased blood pressure and decreased blood glucoses. 4. Encephalopathy. 5. Status post trach. PLAN: Decrease his blood pressure medication, decrease his insulin. We will continue CPAP trials. It looks like it will take him a long time to get better. Job ID: [id number]
--- NOTE | 2018-12-04 13:14 | PDOC.PN ---
- Subjective Encounter Start Date: 12/04/18 Encounter Start Time: 10:00 Pt seen for followup re: acute respiratory failure. Nonverbal, unable to complete ROS. - Objective Resuscitation Status - Order Detail: 11/13/18 21:47 Resuscitation Status Routine Resuscitation Status: FULL: Full Resuscitation MAR Reviewed: Yes Vital Signs & Weight: Vital Signs (12 hours) Temp Pulse Resp BP Pulse Ox 12/04/18 12:00 99.9 F H 34 H 12/04/18 10:18 98 112/69 12/04/18 10:00 48 H 12/04/18 08:56 109/75 12/04/18 08:55 94 109/75 12/04/18 08:00 99.8 F H 44 H 12/04/18 07:08 92 96/64 12/04/18 07:06 94 37 H 97 12/04/18 06:00 35 H 12/04/18 04:00 38 H 12/04/18 03:00 99.7 F H 12/04/18 02:00 37 H Weight Admit Weight 292 lb Weight 272 lb 14.916 oz Most Recent Monitor Data Heart Rate from ECG 93 NIBP 107/75 NIBP BP-Mean 85 Respiration from ECG 11 SpO2 100 I&O: 12/03/18 12/04/18 12/05/18 06:59 06:59 06:59 Intake Total 2063 2752 340 Output Total 2595 3070 [facility] -532 -318 -575 Result Diagrams: 12/04/18 07:58 12/04/18 07:58 Additional Labs: Accuchecks 12/04/18 12/04/18 12/03/18 10:05 05:11 20:01 POC Glucose 116 H 160 H 122 H 12/03/18 16:42 POC Glucose 127 H EKG Reviewed by me: Yes (Tele: NSR) Phys Exam - Physical Examination s/p tracheostomy, obese HEENT: moist MMs s/p tracheostomy Alexis crackles Cardiovascular: RRR Gastrointestinal: soft Musculoskeletal: edema present Neurological: moves all 4 limbs Deviation from normal: Unable to assess Dx/Plan (1) Acute respiratory failure Code(s): J96.00 - ACUTE RESPIRATORY FAILURE, UNSP W HYPOXIA OR HYPERCAPNIA Status: Acute Comment: s/p trach, on vent; in CCU. Difficulty weaning. (2) Seizure Code(s): R56.9 - UNSPECIFIED CONVULSIONS Status: Acute Comment: No recurrence, continue Keppra (3) MRSA (methicillin resistant Staphylococcus aureus) infection Code(s): A49.02 - METHICILLIN RESIS STAPH INFECTION, UNSP SITE Status: Acute Comment: continue Zyvox (4) CAD (coronary artery disease) Code(s): I25.10 - ATHSCL HEART DISEASE OF [place] CORONARY ARTERY W/O ANG PCTRS Status: Chronic Qualifiers: Coronary Disease-Associated Artery/Lesion type: [place] artery [place] vs. transplanted heart: [place] heart Associated angina: without angina Qualified Code(s): I25.10 - Atherosclerotic heart disease of [place] coronary artery without angina pectoris Comment: stable (5) Hypertension Code(s): I10 - ESSENTIAL (PRIMARY) HYPERTENSION Status: Chronic Qualifiers: Hypertension type: essential hypertension Qualified Code(s): I10 - Essential (primary) hypertension Comment: controlled (6) DM2 (diabetes mellitus, type 2) Status: Chronic Comment: relatively controlled - Plan * . Review of Systems - Medications/Allergies Allergies/Adverse Reactions: Allergies Allergy/AdvReac Type Severity Reaction Status Date / Time No Known Allergies Allergy Verified 09/08/18 15:17 Medications: Current Medications Acetaminophen (Tylenol) 650 mg MS Q4H PRN PRN Reason: Fever > 101 Last Admin: 11/21/18 04:33 Dose: 650 mg Acetaminophen (Tylenol) 1,000 mg PO Q6H PRN PRN Reason: Fever/Mild Pain Last Admin: 11/30/18 21:19 Dose: 1,000 mg Albuterol/Ipratropium (Duoneb) 3 ml NEB [id number] [facility] Last Admin: 12/04/18 07:06 Dose: 3 ml Lipase/Protease/Amylase ([place] [id number]) 1 cap FS .PER PROTOCOL PRN PRN Reason: TUBE OCCLUSION PROTOCOL Bisacodyl (Dulcolax) 10 mg MS DAILYPRN PRN PRN Reason: Constipation Last Admin: 11/25/18 18:34 Dose: 10 mg Carvedilol (Coreg) 3.125 mg PO BID [facility] Last Admin: 12/04/18 08:56 Dose: 3.125 mg Dextrose/Water (Dextrose 50%) 25 gm IVP PRN PRN PRN Reason: HYPOGLYCEMIA PROTOCOL Enoxaparin Sodium (Lovenox) 40 mg SC 0900 [facility] Last Admin: 12/04/18 08:55 Dose: 40 mg Famotidine (Pepcid) 20 mg PO Q12HR [facility] Last Admin: 12/04/18 08:57 Dose: 20 mg Furosemide (Lasix) 40 mg SLOW IVP BID [facility] Last Admin: 12/04/18 08:56 Dose: 40 mg Glucagon (Glucagon) 1 mg IM PRN PRN PRN Reason: HYPOGLYCEMIA PROTOCOL Haloperidol Lactate (Haldol) 10 mg SLOW IVP Q4H [facility] Last Admin: 12/04/18 12:48 Dose: 10 mg Levetiracetam 1,000 mg/ Device 100 mls @ 200 mls/hr IVPB BID [facility] Last Admin: 12/04/18 08:57 Dose: 100 mls Potassium Chloride 40 meq/ (Sodium Chloride) 270 mls @ 135 mls/hr IVPB ASDIR PRN PRN Reason: FOR SERUM K+ 2.5 - 3.5 Potassium Chloride 40 meq/ (Device) 100 mls @ 50 mls/hr IVPB ASDIR PRN PRN Reason: FOR SERUM K+ 2.5 - 3.5 Magnesium Sulfate 1 gm/ Sodium (Chloride) 102 mls @ 102 mls/hr IV PRN PRN PRN Reason: MAG LEVEL 1.4 - 2.0 Magnesium Sulfate 2 gm/ Device 100 mls @ 100 mls/hr IVPB ASDIR PRN PRN Reason: MAGNESIUM < 1.4 Potassium Phosphate 9 mmol/ (Sodium Chloride) 103 mls @ 25.75 mls/hr IVPB ASDIR PRN PRN Reason: Phosphate 1.0-1.8 Potassium Phosphate 12 mmol/ (Sodium Chloride) 254 mls @ 63.5 mls/hr IV ASDIR PRN PRN Reason: Serum phosphate 0.5-0.9 Potassium Phosphate 15 mmol/ (Sodium Chloride) 255 mls @ 63.75 mls/hr IV ASDIR PRN PRN Reason: Serum Phos < 0.5 Dextrose/Water (D5w) 1,000 mls @ 0 mls/hr IV INF PRN PRN Reason: HYPOGLYCEMIA PROTOCOL Linezolid 600 mg/ Device 300 mls @ 150 mls/hr IVPB 1000,2200 [facility] Last Admin: 12/04/18 09:43 Dose: 300 mls Insulin Glargine 25 units/ (Miscellaneous Medication) 0.25 mls @ 0 mls/hr SC QAM [facility] Last Admin: 12/04/18 09:28 Dose: 0.25 mls Fentanyl Citrate 2,000 mcg/ (Sodium Chloride) 100 mls @ 0 mls/hr IV INF [facility]; Protocol Fentanyl Citrate (Fentanyl Bolus) 250 mls @ 0 mls/hr IVPB PRN PRN PRN Reason: Breakthrough pain/agitation Insulin Human Lispro (Humalog) 0 units SC .AGGRESSIVE SLIDING PRN; Protocol PRN Reason: AGGRESSIVE SLIDING SCALE Last Admin: 12/04/18 05:11 Dose: 3 unit Lisinopril (Zestril) 5 mg PO DAILY [facility] Lorazepam (Ativan) 1 mg SLOW IVP Q4H [facility] Last Admin: 12/04/18 13:01 Dose: 1 mg Lorazepam (Ativan) 2 mg SLOW IVP Q1H PRN PRN Reason: Breakthrough agitation Last Admin: 12/04/18 11:24 Dose: 2 mg Magnesium Oxide (Magnesium Oxide) 400 mg PO BIDPRN PRN PRN Reason: FOR SERUM MAG 1.4 - 2.0 Magnesium Oxide (Magnesium Oxide) 800 mg PO PRN PRN PRN Reason: FOR SERUM MAG < 1.4 Miscellaneous Medication (Phos-Nak) 1 pkt PO TIDPRN PRN PRN Reason: FOR PHOS LEVEL 1.0 - 1.8 Miscellaneous Medication (Phos-Nak) 2 pkt PO TIDPRN PRN PRN Reason: FOR PHOS LEVEL 0.5 - 1.0 Morphine Sulfate (Morphine) 2 mg SLOW IVP Q4H PRN PRN Reason: Moderate Pain (4-6) Last Admin: 12/02/18 10:14 Dose: 2 mg Morphine Sulfate (Morphine) 2 mg SLOW IVP Q1H PRN PRN Reason: BREAKTHROUGH PAIN/Agitation Last Admin: 12/03/18 03:42 Dose: 2 mg Ccu Electrolyte (Replacement Protocol) 0 each FS PRN PRN PRN Reason: FOR ELECTROLYTE REPLACEMENT Ondansetron HCl (Zofran) 4 mg IVP Q6H PRN PRN Reason: Nausea/Vomiting Polyethylene Glycol (Miralax) 17 gm PER TUBE DAILY PRN PRN Reason: Constipation Potassium Chloride (K-Dur) 40 meq PO ASDIR PRN PRN Reason: FOR SERUM K+ 2.5 - 3.5 Potassium Chloride (Klor-Con) 40 meq PER TUBE ASDIR PRN PRN Reason: FOR SERUM K+ 2.5-3.5 Last Admin: 12/01/18 17:43 Dose: 40 meq Propofol (Diprivan) 1,000 mg IV INF PRN; Protocol PRN Reason: TO ACHIEVE GOAL RASS Stop: 12/13/18 23:28 Last Admin: 11/29/18 11:01 Dose: 1,000 mg Propofol (Diprivan Bolus) 20 mg IV Q5MIN PRN PRN Reason: BREAKTHROUGH AGITATION Stop: 12/13/18 23:28 Quetiapine Fumarate (Seroquel) 100 mg PO HS [facility] Last Admin: 12/03/18 20:34 Dose: 100 mg Risperidone (Risperidone) 0.5 mg PO TID [facility] Last Admin: 12/04/18 09:13 Dose: 0.5 mg Scopolamine (Transderm Scop) 1.5 mg TD Q3D [facility] Last Admin: 12/03/18 21:15 Dose: 1.5 mg Sodium Bicarbonate (Bicarbonate, Sodium) 650 mg PER TUBE .PER PROTOCOL PRN PRN Reason: ENTERAL TUBE OCCLUSION Sodium Chloride (Flush - Normal Saline) 10 ml IVF Q12HR [facility] Last Admin: 12/04/18 09:14 Dose: 10 ml Sodium Chloride (Flush - Normal Saline) 10 ml IVF PRN PRN PRN Reason: Saline Flush Last Admin: 11/29/18 09:52 Dose: 10 ml Spironolactone (Aldactone) 25 mg PO DAILY [facility]
[2018-12-04] MEDS: Diabetic Tussin DM 5 ML UDCUP PO SCH ×2 (16:05→23:45)
[2018-12-05] MEDS: Haloperidol Lactate 5 MG/ML VIAL SLOW IVP SCH ×2 (01:11→05:16)
[2018-12-05] MEDS: Lorazepam 2 MG/ML VIAL SLOW IVP SCH ×7 (01:13→22:26)
[2018-12-05] MEDS: Lorazepam 2 MG/ML VIAL SLOW IVP PRN ×4 (02:32→18:09)
[2018-12-05] MEDS: Diabetic Tussin DM 5 ML UDCUP PO SCH ×4 (05:16→23:17)
--- NOTE | 2018-12-05 09:13 | PRG ---
DATE OF SERVICE: 12/05/2018 SUBJECTIVE: Saeid Best is a 53-year-old morbidly obese gentleman, status post trach and PEG for multiorgan failure. His last chest x-ray shows small pleural effusion. He opens his eyes. OBJECTIVE: VITAL SIGNS: Pulse 93, blood pressure is 103/63, saturations 92% on 30%, respirations 15. His I's and O's have been good, 2063 in and 2595 out. CHEST: Bilateral rhonchi. CARDIAC: Normal S1 and S2. No gallops. ABDOMEN: No masses. LABORATORY DATA: His lytes are normal. H and H unremarkable. IMPRESSION: 1. Respiratory failure. 2. Metabolic encephalopathy. 3. Diabetes. 4. Status post trach and percutaneous endoscopic gastrostomy. PLAN: Continue CPAP trial. Minimize sedation. Eventual long-term placement. Continue cardiac care. One half hour critical time. Job ID: [id number]
[2018-12-05 09:43] LABS: Anion Gap 15 mmol/L (10-20); BUN (Urea Nitrogen) 20 mg/dL (8.4-25.7); Calc. Creatinine Clearance 177 mL/min (70-130); Calcium 8.5 mg/dL (7.8-10.44); Carbon Dioxide 29 mmol/L (22-29); Chloride 100 mmol/L (98-107); Estimated GFR-MDRD Greater than 90; Glucose 168 mg/dL (70-105); Sodium 140 mmol/L (136-145)
[2018-12-05 09:57] LABS: #Eosinphils 0.4 thou/uL (0.0-0.7); #Lymphocytes 1.3 thou/uL (1.20-3.40); #Monocytes 0.9 thou/uL (0.11-0.59); #Neutrophils 4.2 thou/uL (1.40-6.50); %Basophils 0.5 % (0.0-1.0); %Eosinophils 6.4 % (0.0-10.0); %Monocytes 12.6 % (0.0-10.0); %Neutrophils 61.5 % (42.0-75.0); Hemoglobin 9.6 g/dL (14.0-18.0); Mean Corpuscular HGB CONC 30.8 g/dL (32.0-36.0); Mean Corpuscular Hemoglobin 28.6 pg (27.0-31.0); Mean Corpuscular Volume 93.1 fL (78.0-98.0); Mean Platelet Volume 7.8 fL (7.4-10.4); Platelet Count 349 thou/uL (130-400); RBC Distribution Width 13.7 % (11.5-14.5); Red Blood Cell (RBC) Count 3.35 mill/uL (4.70-6.10); White Blood Cell (WBC) Count 6.8 thou/uL (4.8-10.8)
[2018-12-05] MEDS: Carvedilol 6.25 MG TAB PO SCH ×2 (10:06→20:23)
[2018-12-05] MEDS: Furosemide 40 MG/4 ML VIAL SLOW IVP SCH ×2 (10:06→20:20)
[2018-12-05] MEDS: Spironolactone 25 MG TAB PO SCH (10:07)
[2018-12-05] MEDS: Famotidine 20 MG TAB PO SCH ×2 (10:07→20:24)
[2018-12-05] MEDS: Lisinopril 5 MG TAB PO SCH (10:08)
[2018-12-05] MEDS: Insulin Glargine 25 UNITS in Pre-Filled Syringe 1 EACH SC SCH (10:08)
[2018-12-05] MEDS: Enoxaparin Sodium 40 MG/0.4 ML SYRINGE SC SCH (10:09)
[2018-12-05] MEDS: levETIRAcetam In NaCl (Iso-Os) 1,000 MG in Premix Bag 1 BAG IVPB SCH ×2 (10:09→20:15)
[2018-12-05] MEDS: Linezolid 600 MG in Premix Bag 1 BAG IVPB SCH (10:10)
[2018-12-05] MEDS: risperiDONE 0.25 MG TAB PO SCH ×2 (10:26→20:22)
[2018-12-05] MEDS: Haloperidol Lactate 5 MG/ML VIAL SLOW IVP PRN ×3 (11:34→18:39)
[2018-12-05 15:14] VITALS: BMI 34.7
--- NOTE | 2018-12-05 17:49 | PDOC.PN ---
- Subjective Encounter Start Date: 12/05/18 Encounter Start Time: 09:20 Pt seen for followup re: acute hypoxic resp failure. Trying to say words, unable to speak. Unable to complete ROS. - Objective Resuscitation Status - Order Detail: 11/13/18 21:47 Resuscitation Status Routine Resuscitation Status: FULL: Full Resuscitation MAR Reviewed: Yes Vital Signs & Weight: Vital Signs (12 hours) Temp Pulse Resp BP Pulse Ox 12/05/18 15:37 104 H 12/05/18 13:21 105 H 119/97 H 12/05/18 12:00 100.7 F H 43 H 12/05/18 10:28 100 116/75 12/05/18 10:08 107 H 108/67 12/05/18 10:06 116/75 12/05/18 10:00 19 12/05/18 08:00 100.5 F H 23 H 99 12/05/18 07:42 90 108/67 99 12/05/18 06:00 13 Weight Admit Weight 292 lb Weight 270 lb 15.17 oz Most Recent Monitor Data Heart Rate from ECG 93 NIBP 111/68 NIBP BP-Mean 82 Respiration from ECG 0 SpO2 99 I&O: 12/04/18 12/05/18 12/06/18 06:59 06:59 06:59 Intake Total 2752 2311 720 Output Total 3070 2315 905 Balance -318 -4 -185 Result Diagrams: 12/05/18 08:56 12/05/18 08:56 Additional Labs: Accuchecks 12/05/18 12/05/18 12/04/18 10:01 05:22 20:38 POC Glucose 152 H 119 H 119 H EKG Reviewed by me: Yes (Tele: sinus tachycardia) Phys Exam - Physical Examination Obese HEENT: moist MMs s/p trach Alexis crackles S1, S2, reg, tachy Gastrointestinal: positive bowel sounds PEG tube Neurological: moves all 4 limbs Psychiatric: normal affect Dx/Plan (1) Acute respiratory failure Code(s): J96.00 - ACUTE RESPIRATORY FAILURE, UNSP W HYPOXIA OR HYPERCAPNIA Status: Acute Comment: s/p trach, on vent (2) Seizure Code(s): R56.9 - UNSPECIFIED CONVULSIONS Status: Acute Comment: on Keppra (3) MRSA (methicillin resistant Staphylococcus aureus) infection Code(s): A49.02 - METHICILLIN RESIS STAPH INFECTION, UNSP SITE Status: Acute Comment: continue Zyvox (4) CAD (coronary artery disease) Code(s): I25.10 - ATHSCL HEART DISEASE OF [place] CORONARY ARTERY W/O ANG PCTRS Status: Chronic Qualifiers: Coronary Disease-Associated Artery/Lesion type: [place] artery [place] vs. transplanted heart: [place] heart Associated angina: without angina Qualified Code(s): I25.10 - Atherosclerotic heart disease of [place] coronary artery without angina pectoris Comment: stable (5) Hypertension Code(s): I10 - ESSENTIAL (PRIMARY) HYPERTENSION Status: Chronic Qualifiers: Hypertension type: essential hypertension Qualified Code(s): I10 - Essential (primary) hypertension Comment: controlled (6) DM2 (diabetes mellitus, type 2) Status: Chronic Comment: relatively controlled - Plan * . Review of Systems - Medications/Allergies Allergies/Adverse Reactions: Allergies Allergy/AdvReac Type Severity Reaction Status Date / Time No Known Allergies Allergy Verified 09/08/18 15:17 Medications: Current Medications Acetaminophen (Tylenol) 650 mg LA Q4H PRN PRN Reason: Fever > 101 Last Admin: 11/21/18 04:33 Dose: 650 mg Acetaminophen (Tylenol) 1,000 mg PO Q6H PRN PRN Reason: Fever/Mild Pain Last Admin: 11/30/18 21:19 Dose: 1,000 mg Albuterol/Ipratropium (Duoneb) 3 ml NEB [id number] JOSE Last Admin: 12/05/18 13:20 Dose: 3 ml Lipase/Protease/Amylase ([place] [id number]) 1 cap FS .PER PROTOCOL PRN PRN Reason: TUBE OCCLUSION PROTOCOL Bisacodyl (Dulcolax) 10 mg LA DAILYPRN PRN PRN Reason: Constipation Last Admin: 11/25/18 18:34 Dose: 10 mg Carvedilol (Coreg) 3.125 mg PO BID JOSE Last Admin: 12/05/18 10:06 Dose: 3.125 mg Dextrose/Water (Dextrose 50%) 25 gm IVP PRN PRN PRN Reason: HYPOGLYCEMIA PROTOCOL Enoxaparin Sodium (Lovenox) 40 mg SC 0900 [facility] Last Admin: 12/05/18 10:09 Dose: 40 mg Famotidine (Pepcid) 20 mg PO Q12HR JOSE Last Admin: 12/05/18 10:07 Dose: 20 mg Furosemide (Lasix) 40 mg SLOW IVP BID [facility] Last Admin: 12/05/18 10:06 Dose: 40 mg Glucagon (Glucagon) 1 mg IM PRN PRN PRN Reason: HYPOGLYCEMIA PROTOCOL Guaifenesin/Dextromethorphan (Diabetic Tussin Dm) 10 ml PO Q6HR [facility] Last Admin: 12/05/18 12:25 Dose: 10 ml Haloperidol Lactate (Haldol) 10 mg SLOW IVP Q4H PRN PRN Reason: Agitation Last Admin: 12/05/18 15:21 Dose: 10 mg Levetiracetam 1,000 mg/ Device 100 mls @ 200 mls/hr IVPB BID [facility] Last Admin: 12/05/18 10:09 Dose: 100 mls Potassium Chloride 40 meq/ (Sodium Chloride) 270 mls @ 135 mls/hr IVPB ASDIR PRN PRN Reason: FOR SERUM K+ 2.5 - 3.5 Potassium Chloride 40 meq/ (Device) 100 mls @ 50 mls/hr IVPB ASDIR PRN PRN Reason: FOR SERUM K+ 2.5 - 3.5 Magnesium Sulfate 1 gm/ Sodium (Chloride) 102 mls @ 102 mls/hr IV PRN PRN PRN Reason: MAG LEVEL 1.4 - 2.0 Magnesium Sulfate 2 gm/ Device 100 mls @ 100 mls/hr IVPB ASDIR PRN PRN Reason: MAGNESIUM < 1.4 Potassium Phosphate 9 mmol/ (Sodium Chloride) 103 mls @ 25.75 mls/hr IVPB ASDIR PRN PRN Reason: Phosphate 1.0-1.8 Potassium Phosphate 12 mmol/ (Sodium Chloride) 254 mls @ 63.5 mls/hr IV ASDIR PRN PRN Reason: Serum phosphate 0.5-0.9 Potassium Phosphate 15 mmol/ (Sodium Chloride) 255 mls @ 63.75 mls/hr IV ASDIR PRN PRN Reason: Serum Phos < 0.5 Dextrose/Water (D5w) 1,000 mls @ 0 mls/hr IV INF PRN PRN Reason: HYPOGLYCEMIA PROTOCOL Insulin Glargine 25 units/ (Miscellaneous Medication) 0.25 mls @ 0 mls/hr SC QAM [facility] Last Admin: 12/05/18 10:08 Dose: 0.25 mls Fentanyl Citrate 2,000 mcg/ (Sodium Chloride) 100 mls @ 0 mls/hr IV INF JOSE; Protocol Fentanyl Citrate (Fentanyl Bolus) 250 mls @ 0 mls/hr IVPB PRN PRN PRN Reason: Breakthrough pain/agitation Insulin Human Lispro (Humalog) 0 units SC .AGGRESSIVE SLIDING PRN; Protocol PRN Reason: AGGRESSIVE SLIDING SCALE Last Admin: 12/04/18 05:11 Dose: 3 unit Lisinopril (Zestril) 5 mg PO DAILY [facility] Last Admin: 12/05/18 10:08 Dose: 5 mg Lorazepam (Ativan) 1 mg SLOW IVP Q4H JOSE Last Admin: 12/05/18 17:09 Dose: Not Given Lorazepam (Ativan) 2 mg SLOW IVP Q1H PRN PRN Reason: Breakthrough agitation Last Admin: 12/05/18 17:08 Dose: 2 mg Magnesium Oxide (Magnesium Oxide) 400 mg PO BIDPRN PRN PRN Reason: FOR SERUM MAG 1.4 - 2.0 Magnesium Oxide (Magnesium Oxide) 800 mg PO PRN PRN PRN Reason: FOR SERUM MAG < 1.4 Miscellaneous Medication (Phos-Nak) 1 pkt PO TIDPRN PRN PRN Reason: FOR PHOS LEVEL 1.0 - 1.8 Miscellaneous Medication (Phos-Nak) 2 pkt PO TIDPRN PRN PRN Reason: FOR PHOS LEVEL 0.5 - 1.0 Morphine Sulfate (Morphine) 2 mg SLOW IVP Q1H PRN PRN Reason: BREAKTHROUGH PAIN/Agitation Last Admin: 12/03/18 03:42 Dose: 2 mg Ccu Electrolyte (Replacement Protocol) 0 each FS PRN PRN PRN Reason: FOR ELECTROLYTE REPLACEMENT Ondansetron HCl (Zofran) 4 mg IVP Q6H PRN PRN Reason: Nausea/Vomiting Polyethylene Glycol (Miralax) 17 gm PER TUBE DAILY PRN PRN Reason: Constipation Potassium Chloride (K-Dur) 40 meq PO ASDIR PRN PRN Reason: FOR SERUM K+ 2.5 - 3.5 Potassium Chloride (Klor-Con) 40 meq PER TUBE ASDIR PRN PRN Reason: FOR SERUM K+ 2.5-3.5 Last Admin: 12/01/18 17:43 Dose: 40 meq Propofol (Diprivan) 1,000 mg IV INF PRN; Protocol PRN Reason: TO ACHIEVE GOAL RASS Stop: 12/13/18 23:28 Last Admin: 11/29/18 11:01 Dose: 1,000 mg Propofol (Diprivan Bolus) 20 mg IV Q5MIN PRN PRN Reason: BREAKTHROUGH AGITATION Stop: 12/13/18 23:28 Quetiapine Fumarate (Seroquel) 100 mg PO HS [facility] Last Admin: 12/04/18 20:34 Dose: 100 mg Risperidone (Risperidone) 0.5 mg PO BID [facility] Last Admin: 12/05/18 10:26 Dose: 0.5 mg Scopolamine (Transderm Scop) 1.5 mg TD Q3D [facility] Last Admin: 12/03/18 21:15 Dose: 1.5 mg Sodium Bicarbonate (Bicarbonate, Sodium) 650 mg PER TUBE .PER PROTOCOL PRN PRN Reason: ENTERAL TUBE OCCLUSION Sodium Chloride (Flush - Normal Saline) 10 ml IVF Q12HR [facility] Last Admin: 12/05/18 10:19 Dose: 10 ml Sodium Chloride (Flush - Normal Saline) 10 ml IVF PRN PRN PRN Reason: Saline Flush Last Admin: 11/29/18 09:52 Dose: 10 ml Spironolactone (Aldactone) 25 mg PO DAILY [facility] Last Admin: 12/05/18 10:07 Dose: 25 mg
[2018-12-06] MEDS: Lorazepam 2 MG/ML VIAL SLOW IVP SCH ×5 (01:16→17:26)
[2018-12-06] MEDS: Lorazepam 2 MG/ML VIAL SLOW IVP PRN (04:50)
[2018-12-06] MEDS: Diabetic Tussin DM 5 ML UDCUP PO SCH ×3 (04:59→17:24)
[2018-12-06 05:06] LABS: #Basophils 0.1 thou/uL (0.0-0.2); #Eosinphils 0.4 thou/uL (0.0-0.7); #Lymphocytes 1.3 thou/uL (1.20-3.40); #Monocytes 0.7 thou/uL (0.11-0.59); #Neutrophils 4.7 thou/uL (1.40-6.50); %Basophils 0.8 % (0.0-1.0); %Eosinophils 5.1 % (0.0-10.0); %Lymphocytes 17.9 % (21.0-51.0); %Monocytes 9.9 % (0.0-10.0); %Neutrophils 66.2 % (42.0-75.0); Hemoglobin 9.6 g/dL (14.0-18.0); Mean Corpuscular HGB CONC 30.7 g/dL (32.0-36.0); Mean Corpuscular Hemoglobin 28.4 pg (27.0-31.0); Mean Corpuscular Volume 92.4 fL (78.0-98.0); Mean Platelet Volume 7.6 fL (7.4-10.4); Platelet Count 361 thou/uL (130-400); RBC Distribution Width 13.5 % (11.5-14.5); Red Blood Cell (RBC) Count 3.39 mill/uL (4.70-6.10); White Blood Cell (WBC) Count 7.1 thou/uL (4.8-10.8)
[2018-12-06] MEDS: Haloperidol Lactate 5 MG/ML VIAL SLOW IVP PRN ×2 (05:33→13:43)
[2018-12-06 05:34] LABS: Anion Gap 10 mmol/L (10-20); BUN (Urea Nitrogen) 21 mg/dL (8.4-25.7); Calc. Creatinine Clearance 178 mL/min (70-130); Carbon Dioxide 36 mmol/L (22-29); Chloride 99 mmol/L (98-107); Estimated GFR-MDRD Greater than 90; Glucose 122 mg/dL (70-105); Potassium 3.8 mmol/L (3.5-5.1); Sodium 141 mmol/L (136-145)
[2018-12-06] MEDS ORDERED: DC Sedation Protocol FS ONE (08:31)
--- NOTE | 2018-12-06 09:26 | PRG ---
DATE OF SERVICE: 12/06/2018 SUBJECTIVE: Saeid Best remains in the ICU, on G-tube. OBJECTIVE: VITAL SIGNS: Sats are 98%, pulse is 88, blood pressure 105/50, respiratory rate is 18. His I's and O's have been good, 2752 in, 3070 out. CHEST: Decreased breath sounds. Minimal rhonchi. CARDIAC: Sinus tach. ABDOMEN: No masses. LABORATORY DATA: White count 10,000, H and H 9 and 36, platelet count is 361. Lytes are normal. IMPRESSION: 1. Congestive heart failure. 2. Respiratory failure. 3. Seizure disorder. 4. Encephalopathy. 5. Possible anoxic injury. 6. Previous drug abuse. He has been on multiple medication for psychosis including Seroquel, Risperidone, Ativan p.r.n. He is on seizure medication, Keppra. Multiple medication for his congestive cardiomyopathy estimated to be 20%. Hopefully, once his encephalopathy improves, he can be gradually placed on a trach collar. Continue PT and Nutrition in the meantime. One half hour of critical time. Job ID: [id number]
[2018-12-06] MEDS: Carvedilol 6.25 MG TAB PO SCH (09:45)
[2018-12-06] MEDS: Spironolactone 25 MG TAB PO SCH (09:45)
[2018-12-06] MEDS: Famotidine 20 MG TAB PO SCH (09:45)
[2018-12-06] MEDS: Furosemide 40 MG TAB PO SCH ×2 (09:45→13:43)
[2018-12-06] MEDS: Lisinopril 5 MG TAB PO SCH (09:45)
[2018-12-06] MEDS: Enoxaparin Sodium 40 MG/0.4 ML SYRINGE SC SCH (09:46)
[2018-12-06] MEDS: Insulin Glargine 25 UNITS in Pre-Filled Syringe 1 EACH SC SCH (09:49)
[2018-12-06] MEDS: levETIRAcetam In NaCl (Iso-Os) 1,000 MG in Premix Bag 1 BAG IVPB SCH (09:49)
[2018-12-06] MEDS: risperiDONE 0.25 MG TAB PO SCH (09:57)
--- NOTE | 2018-12-06 14:20 | PDOC.PN ---
- Subjective Encounter Start Date: 12/06/18 Encounter Start Time: 09:00 Pt seen for followup re: acute hypoxic respiratory failure. Trying to say something but unable to, could not complete ROS. - Objective Resuscitation Status - Order Detail: 11/13/18 21:47 Resuscitation Status Routine Resuscitation Status: FULL: Full Resuscitation MAR Reviewed: Yes Vital Signs & Weight: Vital Signs (12 hours) Temp Pulse Resp BP Pulse Ox 12/06/18 12:56 102 H 133/77 12/06/18 12:00 98.6 F 39 H 12/06/18 10:06 93 117/82 12/06/18 10:00 30 H 12/06/18 09:45 91 100/76 12/06/18 08:00 99.1 F 27 H 99 12/06/18 07:31 91 100/76 12/06/18 07:00 98 12/06/18 06:00 43 H 12/06/18 05:00 100.0 F H 12/06/18 04:00 21 H 12/06/18 02:24 88 22 H 100 Weight Admit Weight 292 lb Weight 272 lb 14.916 oz Most Recent Monitor Data Heart Rate from ECG 100 NIBP 133/77 NIBP BP-Mean 95 Respiration from ECG 28 SpO2 100 I&O: 12/05/18 12/06/18 12/07/18 06:59 06:59 06:59 Intake Total 2311 2035 720 Output Total 2315 2240 250 Balance -4 -205 470 Result Diagrams: 12/06/18 04:35 12/06/18 04:35 Additional Labs: Accuchecks 12/06/18 12/06/18 12/05/18 10:47 04:37 22:11 POC Glucose 137 H 130 H 109 12/05/18 18:31 POC Glucose 120 H EKG Reviewed by me: Yes (Tele: NSR) Phys Exam - Physical Examination Obese HEENT: moist MMs s/p trach Alexis crackles Cardiovascular: RRR Gastrointestinal: soft G-tube Neurological: moves all 4 limbs Deviation from normal: Unable to assess Dx/Plan (1) Acute respiratory failure Code(s): J96.00 - ACUTE RESPIRATORY FAILURE, UNSP W HYPOXIA OR HYPERCAPNIA Status: Acute Comment: s/p trach, on vent in CCU (2) Seizure Code(s): R56.9 - UNSPECIFIED CONVULSIONS Status: Acute Comment: continue Keliangra (3) MRSA (methicillin resistant Staphylococcus aureus) infection Code(s): A49.02 - METHICILLIN RESIS STAPH INFECTION, UNSP SITE Status: Acute Comment: on Zyvox (4) CAD (coronary artery disease) Code(s): I25.10 - ATHSCL HEART DISEASE OF [place] CORONARY ARTERY W/O ANG PCTRS Status: Chronic Qualifiers: Coronary Disease-Associated Artery/Lesion type: [place] artery [place] vs. transplanted heart: [place] heart Associated angina: without angina Qualified Code(s): I25.10 - Atherosclerotic heart disease of [place] coronary artery without angina pectoris Comment: stable (5) Hypertension Code(s): I10 - ESSENTIAL (PRIMARY) HYPERTENSION Status: Chronic Qualifiers: Hypertension type: essential hypertension Qualified Code(s): I10 - Essential (primary) hypertension Comment: controlled (6) DM2 (diabetes mellitus, type 2) Status: Chronic Comment: relatively controlled - Plan * . Review of Systems - Medications/Allergies Allergies/Adverse Reactions: Allergies Allergy/AdvReac Type Severity Reaction Status Date / Time No Known Allergies Allergy Verified 09/08/18 15:17 Medications: Current Medications Acetaminophen (Tylenol) 650 mg NC Q4H PRN PRN Reason: Fever > 101 Last Admin: 11/21/18 04:33 Dose: 650 mg Acetaminophen (Tylenol) 1,000 mg PO Q6H PRN PRN Reason: Fever/Mild Pain Last Admin: 11/30/18 21:19 Dose: 1,000 mg Albuterol/Ipratropium (Duoneb) 3 ml NEB [id number] [facility] Last Admin: 12/06/18 12:56 Dose: 3 ml Lipase/Protease/Amylase ([place] [id number]) 1 cap FS .PER PROTOCOL PRN PRN Reason: TUBE OCCLUSION PROTOCOL Bisacodyl (Dulcolax) 10 mg NC DAILYPRN PRN PRN Reason: Constipation Last Admin: 11/25/18 18:34 Dose: 10 mg Carvedilol (Coreg) 3.125 mg PO BID [facility] Last Admin: 12/06/18 09:45 Dose: 3.125 mg Dextrose/Water (Dextrose 50%) 25 gm IVP PRN PRN PRN Reason: HYPOGLYCEMIA PROTOCOL Enoxaparin Sodium (Lovenox) 40 mg SC 0900 [facility] Last Admin: 12/06/18 09:46 Dose: 40 mg Famotidine (Pepcid) 20 mg PO Q12HR [facility] Last Admin: 12/06/18 09:45 Dose: 20 mg Furosemide (Lasix) 40 mg PO 0900,1400 [facility] Last Admin: 12/06/18 13:43 Dose: 40 mg Glucagon (Glucagon) 1 mg IM PRN PRN PRN Reason: HYPOGLYCEMIA PROTOCOL Guaifenesin/Dextromethorphan (Diabetic Tussin Dm) 10 ml PO Q6HR [facility] Last Admin: 12/06/18 11:38 Dose: Not Given Haloperidol Lactate (Haldol) 10 mg SLOW IVP Q4H PRN PRN Reason: Agitation Last Admin: 12/06/18 13:43 Dose: 10 mg Levetiracetam 1,000 mg/ Device 100 mls @ 200 mls/hr IVPB BID [facility] Last Admin: 12/06/18 09:49 Dose: 100 mls Potassium Chloride 40 meq/ (Sodium Chloride) 270 mls @ 135 mls/hr IVPB ASDIR PRN PRN Reason: FOR SERUM K+ 2.5 - 3.5 Potassium Chloride 40 meq/ (Device) 100 mls @ 50 mls/hr IVPB ASDIR PRN PRN Reason: FOR SERUM K+ 2.5 - 3.5 Magnesium Sulfate 1 gm/ Sodium (Chloride) 102 mls @ 102 mls/hr IV PRN PRN PRN Reason: MAG LEVEL 1.4 - 2.0 Magnesium Sulfate 2 gm/ Device 100 mls @ 100 mls/hr IVPB ASDIR PRN PRN Reason: MAGNESIUM < 1.4 Potassium Phosphate 9 mmol/ (Sodium Chloride) 103 mls @ 25.75 mls/hr IVPB ASDIR PRN PRN Reason: Phosphate 1.0-1.8 Potassium Phosphate 12 mmol/ (Sodium Chloride) 254 mls @ 63.5 mls/hr IV ASDIR PRN PRN Reason: Serum phosphate 0.5-0.9 Potassium Phosphate 15 mmol/ (Sodium Chloride) 255 mls @ 63.75 mls/hr IV ASDIR PRN PRN Reason: Serum Phos < 0.5 Dextrose/Water (D5w) 1,000 mls @ 0 mls/hr IV INF PRN PRN Reason: HYPOGLYCEMIA PROTOCOL Insulin Glargine 25 units/ (Miscellaneous Medication) 0.25 mls @ 0 mls/hr SC QAM [facility] Last Admin: 12/06/18 09:49 Dose: 0.25 mls Insulin Human Lispro (Humalog) 0 units SC .AGGRESSIVE SLIDING PRN; Protocol PRN Reason: AGGRESSIVE SLIDING SCALE Last Admin: 12/04/18 05:11 Dose: 3 unit Lisinopril (Zestril) 5 mg PO DAILY [facility] Last Admin: 12/06/18 09:45 Dose: 5 mg Lorazepam (Ativan) 1 mg SLOW IVP Q4H [facility] Last Admin: 12/06/18 12:20 Dose: 1 mg Magnesium Oxide (Magnesium Oxide) 400 mg PO BIDPRN PRN PRN Reason: FOR SERUM MAG 1.4 - 2.0 Magnesium Oxide (Magnesium Oxide) 800 mg PO PRN PRN PRN Reason: FOR SERUM MAG < 1.4 Miscellaneous Medication (Phos-Nak) 1 pkt PO TIDPRN PRN PRN Reason: FOR PHOS LEVEL 1.0 - 1.8 Miscellaneous Medication (Phos-Nak) 2 pkt PO TIDPRN PRN PRN Reason: FOR PHOS LEVEL 0.5 - 1.0 Ccu Electrolyte (Replacement Protocol) 0 each FS PRN PRN PRN Reason: FOR ELECTROLYTE REPLACEMENT Ondansetron HCl (Zofran) 4 mg IVP Q6H PRN PRN Reason: Nausea/Vomiting Polyethylene Glycol (Miralax) 17 gm PER TUBE DAILY PRN PRN Reason: Constipation Potassium Chloride (K-Dur) 40 meq PO ASDIR PRN PRN Reason: FOR SERUM K+ 2.5 - 3.5 Potassium Chloride (Klor-Con) 40 meq PER TUBE ASDIR PRN PRN Reason: FOR SERUM K+ 2.5-3.5 Last Admin: 12/01/18 17:43 Dose: 40 meq Quetiapine Fumarate (Seroquel) 100 mg PO HS [facility] Last Admin: 12/05/18 20:23 Dose: 100 mg Risperidone (Risperidone) 0.5 mg PO BID [facility] Last Admin: 12/06/18 09:57 Dose: 0.5 mg Scopolamine (Transderm Scop) 1.5 mg TD Q3D [facility] Last Admin: 12/03/18 21:15 Dose: 1.5 mg Sodium Bicarbonate (Bicarbonate, Sodium) 650 mg PER TUBE .PER PROTOCOL PRN PRN Reason: ENTERAL TUBE OCCLUSION Sodium Chloride (Flush - Normal Saline) 10 ml IVF Q12HR [facility] Last Admin: 12/06/18 09:52 Dose: 10 ml Sodium Chloride (Flush - Normal Saline) 10 ml IVF PRN PRN PRN Reason: Saline Flush Last Admin: 11/29/18 09:52 Dose: 10 ml Spironolactone (Aldactone) 25 mg PO DAILY [facility] Last Admin: 12/06/18 09:45 Dose: 25 mg
[2018-12-06 15:26] VITALS: BP 110/80
--- NOTE | 2018-12-06 16:43 | DIS ---
DATE OF ADMISSION: 11/13/2018 DATE OF DISCHARGE: 12/06/2018 PRIMARY CARE PROVIDER: None. DISCHARGE DIAGNOSES: 1. Acute hypoxic respiratory failure. 2. Seizures. 3. Acute on chronic kidney disease, stage 3. 4. Respiratory tract infection with Methicillin-resistant Staphylococcus aureus and streptococcus pneumoniae. 5. Difficulty weaning from ventilator. 6. Status post tracheostomy during this hospitalization. 7. Status post PEG tube placement during this hospitalization. CONSULTATIONS DURING THIS HOSPITALIZATION: 1. Pulmonology, Dr. Kerr. 2. Cardiology, Dr. Iverson. 3. Neurology, Dr. Guzman. 4. General Surgery, Dr. Yu. CONDITION OF PATIENT ON THE DAY OF DISCHARGE: I assessed Mr. Best on the day of discharge. Please refer to my daily progress note for further details regarding this adaf-pi-szug encounter. HOSPITAL COURSE: Mr. Best is a 53-year-old gentleman, who was admitted to [facility] on November 13, 2018, for acute hypoxic respiratory failure and seizures. Please refer to Dr. Mar's history and physical note dated November 13, 2018, for further details. He was intubated and managed in the CCU. He was seen by Pulmonology and Cardiology services. ICD interrogation did not suggest dysrhythmias as etiology of his seizures. He was seen by Neurology Service. He was started on Keppra. He was difficult to wean. Respiratory cultures grew MRSA and Streptococcus pneumoniae. He was treated with antibiotics including linezolid. He is currently off antibiotics. On November 27, 2018, Mr. Best underwent tracheostomy and G-tube placement by General surgery. He was started on tube feeds. Attempts are being made to wean him off the ventilator at the time of this discharge. He continues to have episodes of agitation. He has been accepted to [facility] in [place]. He is being discharged there. LABORATORY STUDIES: On the day of discharge; he has sodium of 141, potassium 3.8, creatinine 0.86, white count 7100, hemoglobin 9.6, and platelet count 361,000. DISCHARGE MEDICATIONS: Include; 1. Aspirin 81 mg daily. 2. Lipitor 40 mg daily. 3. Spironolactone 25 mg daily. 4. Diabetic Tussin liquid every 6 hours. 5. Eliquis 5 mg two times a day. 6. Coreg 3.125 mg two times a day. 7. Pepcid 20 mg two times a day. 8. Lasix 40 mg two times a day. 9. Lantus 25 units in the morning. 10. DuoNebs every 6 hours. 11. Keppra 1000 mg per tube two times a day. 12. Lisinopril 5 mg daily. 13. Seroquel 100 mg at bedtime. 14. Scopolamine 1.5 mg patch every three days. 15. Tylenol Extra Strength 1000 mg every 6 hours as needed. 16. Tylenol suppository 650 mg every 4 hours as needed. 17. Dulcolax 10 mg daily as needed. 18. Dextrose 50% as needed. DISCHARGE DESTINATION: [facility] in [place]. TIME SPENT: Total amount of time spent coordinating this discharge, 35 minutes. Job ID: [id number]
[2018-12-06 17:16] VITALS: TEMP 98.1
== END 2018-12-06 18:10 | DRG 4 ==
LOC: ERS 20:54 → CCU 21:00
PROVIDERS: ADMIT Internal Medicine; ATTEND Internal Medicine
PROC: 0B9M8ZX Drainage of Bilateral Lungs, Via Natural or Artificial Opening Endoscopic, Diagnostic (ICD-10-PCS; 2018-11-20)
PROC: 5A1955Z Respiratory Ventilation, Greater than 96 Consecutive Hours (ICD-10-PCS; principal; 2018-11-27)
PROC: 0B110F4 Bypass Trachea to Cutaneous with Tracheostomy Device, Open Approach (ICD-10-PCS; 2018-11-27)
PROC: 0DH63UZ Insertion of Feeding Device into Stomach, Percutaneous Approach (ICD-10-PCS; 2018-11-27)
DX: J96.01 Acute respiratory failure with hypoxia (principal); J15.212 Pneumonia due to Methicillin resistant Staphylococcus aureus; G93.41 Metabolic encephalopathy; J69.0 Pneumonitis due to inhalation of food and vomit; I63.9 Cerebral infarction, unspecified; I50.22 Chronic systolic (congestive) heart failure; I13.0 Hypertensive heart and chronic kidney disease with heart failure and stage 1 through stage 4 chronic kidney disease, or unspecified chronic kidney disease; I69.351 Hemiplegia and hemiparesis following cerebral infarction affecting right dominant side; N17.9 Acute kidney failure, unspecified; J44.9 Chronic obstructive pulmonary disease, unspecified; F10.10 Alcohol abuse, uncomplicated; E11.22 Type 2 diabetes mellitus with diabetic chronic kidney disease; N18.2 Chronic kidney disease, stage 2 (mild); I25.10 Atherosclerotic heart disease of native coronary artery without angina pectoris; E66.01 Morbid (severe) obesity due to excess calories; E78.5 Hyperlipidemia, unspecified; F41.9 Anxiety disorder, unspecified; Z95.5 Presence of coronary angioplasty implant and graft; Z79.899 Other long term (current) drug therapy; Z79.82 Long term (current) use of aspirin; Z79.01 Long term (current) use of anticoagulants; F17.210 Nicotine dependence, cigarettes, uncomplicated; F12.10 Cannabis abuse, uncomplicated; F15.10 Other stimulant abuse, uncomplicated; E11.65 Type 2 diabetes mellitus with hyperglycemia; G40.909 Epilepsy, unspecified, not intractable, without status epilepticus; I25.5 Ischemic cardiomyopathy; E78.2 Mixed hyperlipidemia; I49.8 Other specified cardiac arrhythmias; R74.8 Abnormal levels of other serum enzymes; F32.9 Major depressive disorder, single episode, unspecified; R47.81 Slurred speech; R29.810 Facial weakness; Z68.35 Body mass index [BMI] 35.0-35.9, adult
CPT/HCPCS: 36415; 36416; 71045; 80048; 80306; 82010; 82805; 83036; 83735; 84100; 85007; 85025; 85027; 87040; 87070; 87077; 87086; 87186; 87205; 87491; 87591; 90471; 90686; 90732; 93005; 93010; 94002; 94003; 94640; 96365; 96366; 96368; 96375; G0008; G0009; J0131; J0670; J0692; J1610; J1630; J1650; J1815; J1825; J1940; J1953; J2001; J2020; J2060; J2250; J2270; J2704; J3010; J3370; J3480; J7050; J7620; P9047; S0028